=== PATIENT | female | born 1970 | race Caucasian/White ===

== ENCOUNTER 2024-04-02 12:42 | Outpatient (AMB) | payer OTHER, SELFPAY ==
--- NOTE | 2024-04-02 12:46 | HO.SPINEOV ---
Intake Visit Reasons: low back pain Intake Note: Ms. Ortiz is here today c/o Low back pain. 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 This is a patient with a known history of scoliosis, previous anterior lumbar interbody fusion at L5-S1 in 2007, who had seen Deniz MORALES at [facility] for back issues. The patient has had on and off issues for the better part of her adult life but over the last year she has had a significant increase in her back pain. It runs along the left side of her paraspinal region and comes down across her lower lumbar area. She does not report any radicular symptoms. The symptoms are aggravated with standing, walking and when she is carrying anything. I can bother her she sitting for any length of time as well. She takes Motrin every day. She underwent physical therapy without any relief. No injections. She is here today with an MRI and x-ray showing scoliotic curvature of the lumbar spine. PMH: History of an anterior lumbar interbody fusion in 2007, history of gastric sleeve surgery, cholecystectomy, , small lipoma removed from the left side of her upper lumbar region, right labral tear of her hip. Other than that she is healthy. Denies any issues with heart attack, strokes, bleeding disorders, lung problems, liver problems, kidney problems, bladder problems, cancer. Social hx: She does not smoke, drink use any recreational drugs Medications: Wegovy for weight loss purposes only Allergies: Penicillin and codeine Physical exam: She stands with a flexed and left leaning curvature of her spine. Strength and reflexes are intact in the lower extremities no clonus. Imaging review: There is a lumbar MRI done at [facility] as well as standing x-rays done at [place] and these show a significant levoscoliotic curvature of the lumbar spine. Previous L5-S1 implants appear to be fused. The standing x-ray show the apex of the scoliosis to be at the L2-3 region. There is a lateral listhesis of L3-4 as well. There is significant disc degeneration at L4-5. Impression: 53-year-old female with history of previous anterior lumbar interbody fusion, history of known scoliosis, presents today for evaluation of left-sided low back pain in the paraspinal region which radiates also down across her lower back. As described in the imaging section above, she has a significant levoscoliotic curvature of her spine with almost no lordotic curvature on the lateral views. The overall apex of the scoliosis appears to be at L2-3. There is lateral listhesis at L3-4 and significant disc degeneration at L4-5. Dr. Dash reviewed the films with me, he thinks that the best surgical approach for this would be a combination oblique lumbar interbody fusion and trans Kambin approach. Specifically he would choose OLIF at L3-4 and L4-5, (with the option of converting that to a trans Kambin if there is too much scar tissue encountered from her previous ALIF), with trans Kambin at L2-3. All pertinent risks and benefits were discussed, as well as recovery. At this time, the patient is not in a place where the pain is so bad that she believes that she would want to pursue such an extensive surgery, however she would like to rediscuss this in 6 months as the pain has been getting worse over the last year. We will see her back in 6 months and re-evaluate. Thank you for allowing us to care for your patient. The total time spent with this visit with this patient was 45 minutes reviewing history, physical exam, lumbar imaging review, and implementation of treatment plan or further diagnostic testing Rashaad Dash MD,PhD [facility] Coding Level of Care Code New Pt Level 4 (10496) Diagnoses Scoliosis (and kyphoscoliosis), idiopathic M41.20
== END 2024-04-02 14:15 | disposition home or self-care (01) ==
PROVIDERS: PCP Internal Medicine; Visit Provider Physician Assistant
DX: M41.20 Other idiopathic scoliosis, site unspecified (principal)
CPT/HCPCS: 99204

== ENCOUNTER → 2024-04-02 12:42 | Outpatient (BNVA) | payer OTHER, SELFPAY | PROVIDERS: PCP Internal Medicine; Visit Provider Physician Assistant ==

== ENCOUNTER 2024-06-18 12:47 | Outpatient (AMB) | payer OTHER, SELFPAY ==
--- NOTE | 2024-06-18 13:00 | A.SPINEOV_ITS ---
Intake Visit Reasons: left upper pain Intake Note: Ms. Ortiz is here today c/o left upper back pain. 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 She is also concerned that she has been having a lot of pain on the left side of her back and feeling like a bump protruding out over her ribs. I reviewed her x-rays done at [place] an MRI at [facility] and the procedure again with her at length. She has a severe levoscoliosis above her previous L5-S1 anterior lumbar interbody fusion done in 2007. Dr. Dash plan was to do an L4-5, L3-4 oblique lumbar interbody fusion, followed by an L2-3 trans Kambin. If any scar tissue was encountered with the oblique approach, he is leaving the option open to do trans Kambin for all levels if needed. We reviewed the procedure again at length, risks, benefits etc.. We also discussed recovery. I told her she would need 3 months or more off from work. She is tentatively planned for sometime in August. Total amount of time spent in this visit was 20 minutes in discussion of symptoms, MRI and x-rays imaging results and subsequent plan of care Rashaad Dash MD,PhD [facility] Coding Level of Care Code Est Pt Level 3 (01387) Diagnoses Scoliosis (and kyphoscoliosis), idiopathic M41.20
== END 2024-06-18 13:29 | disposition home or self-care (01) ==
PROVIDERS: PCP Internal Medicine; Visit Provider Physician Assistant
DX: M41.20 Other idiopathic scoliosis, site unspecified (principal)
CPT/HCPCS: 99213

== ENCOUNTER → 2024-06-18 12:47 | Outpatient (BNVA) | payer OTHER, SELFPAY | PROVIDERS: PCP Internal Medicine; Visit Provider Physician Assistant ==

== ENCOUNTER 2024-09-20 09:00 | Outpatient (RCR) | payer OTHER, SELFPAY ==
--- NOTE | 2024-09-03 13:53 | MHC.PT.EP ---
[facility] [place] [facility] [place] [facility] [place] Office [address] [phone] F: [phone] F: [phone] F: [phone] F: [phone] Physical Therapy Plan of Care Date of Evaluation: 09/03/24 Date of Surgery: Diagnosis: other idiopathic scoliosis lumbar DDD Assessment: 54 y/o female referred to PT with scoliosis and lumbar DDD. Reports pain and difficulty with rolling in bed, prolonged sitting, standing, walking, and carrying things. Of note, she was about to have surgery to correct scoliosis and listhesis however insurance did not cover it so it was cancelled. Examination shows severe scoliosis with L rib hump, decreased lumbar AROM, decreased LE strength, pain, impaired posture, and impaired gait pattern. Recommend PT 2x/week for 5 weeks to address impairments, implement HEP, and optimize functional mobility. Frequency and Duration: The patient will be seen 2x/week for 5 weeks Short Term Goals: 3 weeks I wtih HEP Pt will be able to roll in bed with pain < 4/[address] Service Goals: 5 weeks I with HEP and self management of sx Pt will improve B LE strength to 4/5 throughout Pt will be able to ambulate with appropraite foot clearance and pain < 4/10 Treatment Plan: Modalities to reduce pain, spasms and effusion. Manual therapy to restore motion and function. Therapeutic exercise to improve strength and flexibility. Neuromuscular re-education for posture and balance. Therapeutic activities to return to functional activities of daily living. Electronically signed by: Araseli Suarez PT Please sign and return to therapist. Thank you for your referral.
--- NOTE | 2024-11-12 07:08 | MHC.PT.DC ---
[facility] [place] [facility] [place] [facility] [place] Office [address] Rebekah Dickey [address] [facility] [phone] F: [phone] F: [phone] F: [phone] F: [phone] Physical Therapy Discharge Report Diagnosis: other idiopathic scoliosis lumbar DDD Date of Surgery: Date of Evaluation: 09/03/24 Date of Discharge: 11/12/24 Treatments to Date: 4 Cancellations to Date: 4 No Shows to Date: 0 Discharge Status: Patient Elected to Stop Physician Discontinued Tx Discharge Summary: Pt cancelled remaining appointments reporting MD told her to d/c PT at this time. Electronically signed by: Araseli Suarez PT Please sign and return to therapist. Thank you for your referral.
== END 2024-11-12 07:08 | disposition home or self-care (01) ==
LOC: HO.PTCHIC 09:00
PROVIDERS: PCP Internal Medicine; Visit Provider Physician Assistant
DX: M41.20 Other idiopathic scoliosis, site unspecified (principal); M51.369 Other intervertebral disc degeneration, lumbar region without mention of lumbar back pain or lower extremity pain
CPT/HCPCS: 97110; 97140; 97162

== ENCOUNTER 2024-12-24 14:48 | Outpatient (AMB) | payer OTHER, SELFPAY ==
--- NOTE | 2024-12-24 15:26 | A.SPINEOV_ITS ---
Intake Visit Reasons: Worsening symptoms Intake Note: Ms. 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 Please refer to the extensive previous notes for the specifics of her issue, she has scoliotic curvature of her spine above her previous anterior lumbar interbody fusion L5-S1 and is due to undergo an L3-4, L4-5 oblique lumbar interbody fusion as well as L2-3 trans Kambin. The patient's surgery was denied for lack of physical therapy. The patient underwent therapy, and as predicted after a few weeks into the sessions, it was only making her pain worse. She is telling me that her leg is also starting to drag more now and she is feeling weakness in her leg having trouble holding her up. On my exam there is evidence of weakness and not only the iliopsoas 4/5 but the quadricep which I would rate as 4-/5. Reflexes absent in the patella. She is having a hard time standing up straight here in the office today. I am concerned that we are continuing to push this patient's surgery off and now she is developing weakness that we may be causing more lasting harm by waiting. We will attempt to resubmit for surgery and hopefully the insurance company will cooperate. Total amount of time spent in this visit was 20 minutes in discussion of symp toms, lumbar MRI and x-ray imaging results and subsequent plan of care Rashaad Dash MD,PhD [facility] Coding Level of Care Code Est Pt Level 3 (88137) Diagnoses Scoliosis (and kyphoscoliosis), idiopathic M41.20
--- OUTSIDE RECORDS SUMMARY | 2024-12-24 16:57 | XMS_ITS | Clinical Summary ---
Author Organization [facility] Address [address] [place] [address] Care Team Providers Care Mineral Surveying Technician Name Role Phone Maria Luisa Perez MD Primary Care Provider [phone] Allergies Active Allergy Reactions Criticality Noted Date Comments Penicillin V 12/13/2005 Medications Medication Sig Dispensed Refills Start Date End Date Status meloxicam (MOBIC) 15 MG tablet Take 1 tablet daily for 7 days following surgery, beginning the night of surgery 7 tablet 0 06/11/2021 Active gabapentin (Neurontin) 300 MG capsule Take 300mg for 3 days at bedtime. Please start 1 night prior to surgery 3 capsule 0 06/11/2021 Active promethazine (PHENERGAN) 12.5 MG tablet Take 1 tablet (12.5 mg total) by mouth every 8 (eight) hours as needed for nausea. Use after surgery as needed 4 tablet 0 06/11/2021 Active oxyCODONE (ROXICODONE) 5 MG immediate release tablet Take 1 tablet (5 mg total) by mouth every 6 (six) hours as needed for pain. Do not take until after surgery 25 tablet 0 06/11/2021 Active Active Problems No known active problems Family History Medical History Relation Name Comments Hyperlipidemia Father Cancer Mother Diabetes Mother Hyperlipidemia Mother Hyperlipidemia Sister Relation Name Status Comments Father Mother Sister Social History Tobacco Use Types Packs/Day Years Used Date Smoking Tobacco: Never Smokeless Tobacco: Never Sex and Gender Information Value Date Recorded Sex Assigned at Female 09/05/2020 9:14 AM EST Gender Identity Female 09/05/2020 9:14 AM EST Sexual Orientation Not on file Job Start Date Occupation Industry Not on file Not on file Not on file Last Filed Vital Signs Vital Sign Reading Time Taken Comments Blood Pressure - - Pulse - - Temperature - - Respiratory Rate - - Oxygen Saturation - - Inhaled Oxygen Concentration - - Weight 88.9 kg (196 lb) 12/10/2021 3:17 PM EST Height 163.8 cm (5' 4.5 ) 12/10/2021 3:17 PM EST Body Mass Index 33.12 12/10/2021 3:17 PM EST Plan of Treatment Health Maintenance Due Date Last Done Comments Hepatitis B Vaccines (1 of 3 - 3-dose series) 1971 Hepatitis C Screening 1971 COVID-19 Vaccine (#1) 1971 Depression Screening 1983 BMI Counseling 1989 Preventative Health Evaluation 1989 Cervical Cancer Screening (P ap Smear) 1992 Colon Cancer Screening (Colonoscopy) 2016 DTap / Tdap / Td (2 - Td or Tdap) 09/04/2017 007 Breast Cancer Screening (Mammogram) 2021 Shingrix-Zoster Vaccine (1 of 2) 2021 Influenza Vaccine (#1) 2024 08/14/2021 Pneumococcal Vaccine Aged Out No long er eligible based on patient's age to complete this topic RSV Ped < 20 months Aged Out No longe r eligible based on patient's age to complete this topic Care Teams Mineral Surveying Technician Relationship Specialty Start Date End Date Maria Luisa Perez MD [address] [facility] [address] [place] [address] PCP - General Internal Medicine 09/05/20
--- OUTSIDE RECORDS SUMMARY | 2024-12-24 16:57 | XMS_ITS ---
Author Organization [employer] [facility] Address [address] [place] [address] Care Team Providers Care Heliotherapist Name Role Phone ZARIA GALLOWAY Unavailable [phone] ALLERGIES Allergen (clinical drug ingredient) Drug/Non Drug Allergy documented on EMR Reaction Allergy Type Onset Date Status codeine Codeine Unknown Drug Allergy Active Penicillin Unknown Drug Allergy Active REASON FOR VISIT Pt seen in office for wt mgt f/u visit with IVETTE. MEDICATIONS Medication SIG (Take, Route, Fr equency, Duration) Notes Start Date End Date Status Wegovy 2.4 MG/0.75ML USE TO INJECT 2.4MG INTO THE SKIN ONCE WEEKLY 28 DAYS for 28 Active SOCIAL HISTORY Tobacco Use: Social History Observation Description Date Details (start date - stop date) Never Smoker NA - NA Sex Assigned At : Social History Observation Description Sex Assigned At Unknown Tobacco Use/Smoking Question Answer Notes Are you a nonsmoker PROBLEMS Problem Type ICD Code Onset Dates Problem Status W/U Status Risk SNOMED Code Notes Problem Overweight (BMI 25.0-29.9) (E66.3) Active confirmed Overweight (624633962) VITAL SIGNS Blood pressure systolic 122 mm Hg 09/27/20 24 Blood pressure diastolic 70 mm Hg 024 Heart Rate 73 /min 09/27/2024 Height 63 in 09/27/2024 Weight 159 lbs 09/27/2024 BMI 28.16 kg/m2 09/27/2024 Oximetry 99 % 09/27/2024 Encounters Encounter Location Date Provider Diagnosis [facility] [address] [facility] [address] [facility] [address] [place] [address] 09/27/2024 ZARIA GALLOWAY BMI 28.0-28.9,adult Z68.28 ; Overweight (BMI 25.0-29.9) E66.3 and Dietary counseling and surveillance Z71.3 ASSESSMENTS Encounter Date Diagnosis Assessment Notes Treatment Notes Treatment Clinical Notes Section Notes 09/27/2024 BMI 28.0-28.9,adult (ICD-10 - Z68.28) #Weight Management 09/27/2024 _update labs please Maintenance dosing moving forward Spinal surgery on hold temporarily pending insurance authorization Discussed preoperative guidelines Discussed protein and muscle and's strength and resistance training We stressed the importance of adequate protein intake at the level of 75 g a day Total time spent today was 30 minutes of which greater than 50% was spent on coordinating and counseling Patient has been found to be overweight with a BMI of (28). We are a board certified obesity and weight management practice Patient has trialed behavioral modification, dietary restrictions and exercise for a minimum of 6 months Patient counseled regarding effects of GLP/GIP-1 agonists, and other FDA approved wgt loss meds with regards to a multifactorial approach of weight loss as mentioned above and not solely appetite suppression. Of note, some information is being carried forward from prior records for informational purposes only and is being cited so that efficiency, safety and quality of the patient's care is not compromised This note was prepared using voice recognition software and direct typing Please excuse inadvertent coin machine operator or typing errors, or uncorrected word substitutions Although every attempt has been made by the provider to proofread this document, occasional misspellings and typographical errors may still be present Due to the previous pandemic, and the use of personal protective equipment (PPE) This may decrease voice recognition accuracy Inadvertent coin machine operator errors may occur 09/27/2024 Overweight (BMI 25.0-29.9) (ICD-10 - E66.3) #Weight Management 09/27/2024 _update labs please Maintenance dosing moving forward Spinal surgery on hold temporarily pending insurance authorization Discussed preoperative guidelines Discussed protein and muscle and's strength and resistance training We stressed the importance of adequate protein intake at the level of 75 g a day Total time spent today was 30 minutes of which greater than 50% was spent on coordinating and counseling Patient has been found to be overweight with a BMI of (28). We are a board certified obesity and weight management practice Patient has trialed behavioral modification, dietary restrictions and exercise for a minimum of 6 months Patient counseled regarding effects of GLP/GIP-1 agonists, and other FDA approved wgt loss meds with regards to a multifactorial approach of weight loss as mentioned above and not solely appetite suppression. Of note, some information is being carried forward from prior records for informational purposes only and is being cited so that efficiency, safety and quality of the patient's care is not compromised This note was prepared using voice recognition software and direct typing Please excuse inadvertent coin machine operator or typing errors, or uncorrected word substitutions Although every attempt has been made by the provider to proofread this document, occasional misspellings and typographical errors may still be present Due to the previous pandemic, and the use of personal protective equipment (PPE) This may decrease voice recognition accuracy Inadvertent coin machine operator errors may occur 09/27/2024 Dietary counseling and surveillance (ICD-10 - Z71.3) #Weight Management 09/27/2024 _update labs please Maintenance dosing moving forward Spinal surgery on hold temporarily pending insurance authorization Discussed preoperative guidelines Discussed protein and muscle and's strength and resistance training We stressed the importance of adequate protein intake at the level of 75 g a day Total time spent today was 30 minutes of which greater than 50% was spent on coordinating and counseling Patient has been found to be overweight with a BMI of (28). We are a board certified obesity and weight management practice Patient has trialed behavioral modification, dietary restrictions and exercise for a minimum of 6 months Patient counseled regarding effects of GLP/GIP-1 agonists, and other FDA approved wgt loss meds with regards to a multifactorial approach of weight loss as mentioned above and not solely appetite suppression. Of note, some information is being carried forward from prior records for informational purposes only and is being cited so that efficiency, safety and quality of the patient's care is not compromised This note was prepared using voice recognition software and direct typing Please excuse inadvertent coin machine operator or typing errors, or uncorrected word substitutions Although every attempt has been made by the provider to proofread this document, occasional misspellings and typographical errors may still be present Due to the previous pandemic, and the use of personal protective equipment (PPE) This may decrease voice recognition accuracy Inadvertent coin machine operator errors may occur PLAN OF TREATMENT Pending Test Test Name Order Date LIPID PANEL, STANDARD 09/27/2024 COMPREHENSIVE METABOLIC PANEL 09/27/2024 CBC (INCLUDES DIFF/PLT) 09/27/2024 URINALYSIS, COMPLETE 09/27/2024 HEMOGLOBIN A1c 09/27/2024 TSH 09/27/2024 VITAMIN D,25-OH,TOTAL,IA 09/27/2024 Next Appt Details Provider Name:ZARIA VAZQUEZMirta, 12/27/2024 01:30:00 PM, [address], [address], [place], [address], Provider Name:ZARIA CHANDRALOUANN, 12/29/2024 01:00:00 PM, [address], [address], [place], [address], Progress Notes * BARB STOVALLOB:1970 ([age] yo F)Acc No.[id number]:09/27/2024 Patient:??HEATHER STOVALL Provider:??ZARIA GALLOWAY NP :1970?Age:54 Y?Sex:Fe male Date:09/27/2024 Address:[facility] [address] [place] [place], [id number] Subjective: * Chief Complaints: * ?1. Pt seen in office f or wt mgt f/u visit with IVETTE.. * HPI: ?Constitutional:? Patient is here today for a weight management followup visit ?Patient seen and examined. ? Full past medical history, social history, family history, ?allergies and current medications were reviewed and updated. ?Body composition analysis reviewed today ?#Weight Management ?09/27/2024 ?Needs updated labs ?Patient is currently on 2.4mg Wegovy bi weekly maintenance ?scheduled to have Spinal surgery L3-L5, candice placement, postural correction ?with [facility] on 08/31/2024, this is on hold for insurance authorization* ?Sx- hx- bariatric sx (sleeve) ?Denies any side effects and thriving. Pt states that for the most part her appetite is suppressed. ?Patient continues to try to add protein in her diet, but she says it could be better. ? Currently consumes some bahamian yogurts for protein ?Exercise/Strength and resistance training needs to improve since her muscle mass is low normal. ?Pt is walking regularly, however, does not do resistance training at the moment. ?Discussed the importance of this since as she has lost 2 lbs of muscle mass since her last visit in March. ?Takes Biotin and Multivitamin ?Pt is currently at goal weight and is happy with where she is at. ?We will begin spreading injections to biweekly schedule. ?Is taking women's daily multivitamin and biotin 5000 mg daily supplement. ?SECA Body composition reviewed ?09/27/2024, Weight 159lbs , BMI 28 ?07/26/2024, Weight 156lbs , BMI 28 ?06/01/2024, Weight 156.09 lbs, BMI 27.65 (-2lbs) ?03/29/2024, Weight 158lbs , BMI 28 (-2lbs) ?02/05/2024, Weight 160lbs , BMI 28.4 (-2lbs) ?12/23/2023, Weight 162lbs , BMI 28 (-10lbs) ?09/05/2023: Weight 172lbs, BMI 30 (-5lbs) ?07/24/2023: Weight 178 , BMI 31.53 (- 12lbs) ?06/11/2023: Weight 190 lbs, BMI 33 (-12 lbs) ?04/28/2023: Weight 202lbs, BMI (-10lbs) ?03/18/2023: Weight 212lbs, BMI 37.6 ?Allergies- codeine, Penicillin V ?PCP- Maria Luisa Perez MD. ?Past med hx- right-sided low back pain with sciatica (Labral tear), ?vit d deficiency, adnexal cyst, lipoma of skin. ?Sx- hx- bariatric sx (sleeve), , tubal ligation, wisdom teeth extraction, ?back surgery- s/p herniated disc, cholecystectomy, repair right side Labral tear 2020. ?Patient referred to us from PCP Maria Luisa Perez MD. 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 ?Highest weight: 270 lbs ?Lowest weight: 193 lbs ?Goal weight: 150-170 lbs ?IVON screening, refused. ?Metabolic workup: ?Thyroid- denies, ?Diabetes- denies ?Has not had an echocardiogram recently. ?Diet: Admits eating more on Wegovy including sweets. Eats yogurt in the morning, some fruit, ?and a lot of chicken and white meats. ?Exercise: Currently 5-7k steps daily. No current exercise regimen although states she walks a lot at work. ?Discussed adding some form of resistance training to maintain muscle mass. ?Tobacco: denies ?ETOH use: denies. * ROS:?Review of systems negative unless otherwise stated in HPI. * Medical History:??Headache, Gallbladder disease. * Surgical History:??gastric s leeve , gallbladder removal , lumbar fusion . * Hospitalization/Major Diagno stic Procedure:??Denies Past Hospitalization. * Family History:??Father: dec eased.??Mother: .??2 sister(s) . .?? mother cancer father-emphysema. * Social History:?Tobacco Use:??Tobacco Use/Smoking??Are you a??nonsmoker.?? * Medications:??Taking Wegovy 2.4 MG/0.75ML Solution Auto-injector USE TO INJECT 2.4MG INTO THE SKIN ONCE WEEKLY 28 DAYS , Medication List reviewed and reconciled with the patient * Allergies:??Penicillin, Code ine. Objective: * Vitals:??HR:73/min, BP:122/7 0mm Hg, Wt:159lbs, BMI:28.16Index, Ht: 63 in, Oxygen sat %:99%. * Examination: ?General Examination: ?GENERAL APPEARANCE:??in no acute distress, well developed, well nourished.??HEAD:??normocephalic, atraumatic.??EYES:??pupils equal, round, reactive to light and accommodation.??EARS:??normal.??ORAL CAVITY:??mucosa moist.??THROAT:??clear.??NECK/THYROID:??neck supple, full range of motion, no cervical lymphadenopathy.??SKIN:??no suspicious lesions, warm and dry.??HEART:??no murmurs, regular rate and rhythm, S1, S2 normal.??LUNGS:??clear to auscultation bilaterally.??ABDOMEN:??normal, bowel sounds present, soft, nontender, nondistended.??EXTREMITIES:??no clubbing, cyanosis, or edema.??NEUROLOGIC:??nonfocal, motor strength normal upper and lower extremities, sensory exam intact.? Assessment: * Assessment: 1.??Overweight (BMI 25.0-29. 9) - E66.3 (Primary)??2.??BMI 28.0-28.9,adult - Z68.28??3.??Dietary counseling and surveillance - Z71.3?? #Weight Management 09/27/2024 _update labs please Maintenance dosing moving forward Spinal surgery on hold temporarily pending insurance authorization Discussed preoperative guidelines Discussed protein and muscle and's strength and resistance training We stressed the importance of adequate protein intake at the level of 75 g a day Total time spent today was 30 minutes of which greater than 50% was spent on coordinating and counseling Patient has been found to be overweight with a BMI of (28). We are a board certified obesity and weight management practice Patient has trialed behavioral modification, dietary restrictions and exercise for a minimum of 6 months Patient counseled regarding effects of GLP/GIP-1 agonists, and other FDA approved wgt loss meds with regards to a multifactorial approach of weight loss as mentioned above and not solely appetite suppression. Of note, some information is being carried forward from prior records for informational purposes only and is being cited so that efficiency, safety and quality of the patient's care is not compromised This note was prepared using voice recognition software and direct typing Please excuse inadvertent coin machine operator or typing errors, or uncorrected word substitutions Although every attempt has been made by the provider to proofread this document, occasional misspellings and typographical errors may still be present Due to the previous pandemic, and the use of personal protective equipment (PPE) This may decrease voice recognition accuracy Inadvertent coin machine operator errors may occur. Plan: * Treatment: * Labs:?? * ?Lab: HEMOGLOBIN A1 c ?Lab: VITAMIN D,25- OH,TOTAL,IA ?Lab: URINALYSIS, C OMPLETE ?Lab: COMPREHENSIVE METABOLIC PANEL ?Lab: CBC (INCLUDES DIFF/PLT) ?Lab: TSH ?Lab: LIPID PANEL, STANDARD * Procedure Codes:??64205 P/M ACID TANK CLEANER, INDIV 15 MIN * Images: Billing Information: * Visit Code:?? 91675 Office Visit, Est Pt., Level 4. * Procedure Codes:?? 10846 P/M ACID TANK CLEANER, INDIV 15 MIN. * Sign off status: Completed true * Provider:??ZARIA GALLOWAY NP Date:??1211/2023 History and Physical Notes * HPI (History of Present Illness) Category Sub-Category Detail Notes Category Not es Constitutional Patient is here today for a weight management followup visit Patient seen and examined. Full past medical history, social history, family history, allergies and current medications were reviewed and updated. Body composition analysis reviewed today #Weight Management 09/27/2024 Needs updated labs Patient is currently on 2.4mg Wegovy bi weekly maintenance scheduled to have Spinal surgery L3-L5, candice placement, postural correction with Hardy @ [email or web address] on 08/31/2024, this is on hold for insurance authorization* Sx- hx- bariatric sx (sleeve) Denies any side effects and thriving. Pt states that for the most part her appetite is suppressed. Patient continues to try to add protein in her diet, but she says it could be better. Currently consumes some bahamian yogurts for protein Exercise/Strength and resistance training needs to improve since her muscle mass is low normal. Pt is walking regularly, however, does not do resistance training at the moment. Discussed the importance of this since as she has lost 2 lbs of muscle mass since her last visit in March. Takes Biotin and Multivitamin Pt is currently at goal weight and is happy with where she is at. We will begin spreading injections to biweekly schedule. Is taking women's daily multivitamin and biotin 5000 mg daily supplement. SECA Body composition reviewed 09/27/2024, Weight 159lbs , BMI 28 07/26/2024, Weight 156lbs , BMI 28 06/01/2024, Weight 156.09 lbs, BMI 27.65 (-2lbs) 03/29/2024, Weight 158lbs , BMI 28 (-2lbs) 02/05/2024, Weight 160lbs , BMI 28.4 (-2lbs) 12/23/2023, Weight 162lbs , BMI 28 (-10lbs) 09/05/2023: Weight 172lbs, BMI 30 (-5lbs) 07/24/2023: Weight 178 , BMI 31.53 (- 12lbs) 06/11/2023: Weight 190 lbs, BMI 33 (-12 lbs) 04/28/2023: Weight 202lbs, BMI (-10lbs) 03/18/2023: Weight 212lbs, BMI 37.6 Allergies- codeine, Penicillin V PCP- Maria Luisa Perez MD. Past med hx- right-sided low back pain with sciatica (Labral tear), vit d deficiency, adnexal cyst, lipoma of skin. Sx- hx- bariatric sx (sleeve), , tubal ligation, wisdom teeth extraction, back surgery- s/p herniated disc, cholecystectomy, repair right side Labral tear 2020. Patient referred to us from PCP Maria Luisa Perez MD. 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 Highest weight: 270 lbs Lowest weight: 193 lbs Goal weight: 150-170 lbs IVON screening, refused. Metabolic workup: Thyroid- denies, Diabetes- denies Has not had an echocardiogram recently. Diet: Admits eating more on Wegovy including sweets. Eats yogurt in the morning, some fruit, and a lot of chicken and white meats. Exercise: Currently 5-7k steps daily. No current exercise regimen although states she walks a lot at work. Discussed adding some form of resistance training to maintain muscle mass. Tobacco: denies ETOH use: denies Examination Category Sub-Category Detail Notes Category Not es General Examination GENERAL APPEARANCE: in no ac chacho distress, well developed, well nourished HEAD: normocephalic, atrau matic EYES: pupils equal, round, reactive to light and accommodation EARS: normal THROAT: clear NECK/THYROID: neck supple, full ra nge of motion, no cervical lymphadenopathy HEART: no murmurs, regular rate and rhythm, S1, S2 normal LUNGS: clear to auscultatio n bilaterally ABDOMEN: normal, bowel sounds present, soft, nontender, nondistended NEUROLOGIC: nonfocal, motor stre ngth normal upper and lower extremities, sensory exam intact SKIN: no suspicious lesion s, warm and dry EXTREMITIES: no clubbing, cyanosi s, or edema ORAL CAVITY: mucosa moist
--- OUTSIDE RECORDS SUMMARY | 2024-12-24 16:57 | XMS_ITS | Clinical Summary ---
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 Active MULTIVITAMIN ORAL Take by mouth. Active semaglutide (Wegovy) 2.4 mg/0.75 mL injection pen 08/18/2023 Activ e Active Problems Problem Noted Date Diagnosed Date Levoscoliosis of lumbar spine 03/03/2024 Overview (08/07/2024): Last Assessment & Plan: Fidencio Stovall continues to suffer with transverse low back pain. She has gone to physical therapy that has helped but not eliminated her pain. Her x-rays show a significant levoscoliosis with the apex at L1-2. We talked about surgical intervention that may involve a 1 level fusion extension versus a deformity correction. I explained that we did not offer deformity correction and our service but we could refer her to another neurosurgeon in the area that does that kind of surgery (Dr. Dash). She would not consider surgical intervention at this time. She will continue her home exercises and take NSAIDs. We talked about acupuncture and an inversion table as other reasonable conservative modalities. She will reach out if she has any questions or wants to pursue things further. Chronic bilateral low back pain without sciatica 01/16/2024 Overview (08/07/2024): Last Assessment & Plan: Ms. Stovall has a of anterior lumbar interbody fusion performed by Dr. Cabrera in 2007. She did well following that procedure but over the past several months has had increasing transverse low back pain without radiation to the legs. She does admit to occasional right anterior thigh burning but overall says that the pain is mostly in her back. She denies any fevers, shakes, chills, or problems of bowel or bladder control. In addition she describes a lump on the low left side of her posterior rib cage and ultrasound did see the lump, it is palpable, but it was not identified on the CAT scan. I counseled her to talk to her primary care doctor and ask for referral to general surgery for consideration of biopsy. With regards to her low back, we will obtain some x-rays with flexion and extension views to rule out any instability and look at the hardware. As long as those look okay, she will begin physical therapy. After the therapy, she can follow-up here and if her pain persists we can obtain a new MRI. Acute right-sided low back pain with sciatica Hypertension 04/20/2018 Intertrigo 03/03/2018 Vitamin D deficiency 08/15/2017 Adnexal cyst 08/16/2016 Lipoma of skin and subcutaneous tissue 6 Immunizations Name Administration Dates Next Due Influenza Quadravalent, MDCK , 0.5ml, preservative free (Flucelvax) 6mo and older 08/14/2021,07/20/2020 Influenza Quadravalent, MDCK , 0.5ml, with preservative (Flucelvax) 6mo and older 07/26/2020 Tdap Tetanus diptheria acell ular pertussis (Boostrix; Adacel) 7yo and older 09/04/2007 Surgical History Surgery Date Site/Laterality Comments SECTION PROCEDURE: HISTORICAL TUBAL LIGATION PROCEDURE: HISTORICAL TUBAL LIGATION WISDOM TOOTH EXTRACTION PROCEDURE: HISTORICAL WISDOM TEETH EXTRACTION OTHER SURGICAL HISTORY 09/25/2016 PROCEDURE: HISTORY OTHER; COMMENT: Lap Sleeve Gastrectomy Medical History Medical History Date Comments History of bariatric surgery 09/04/2018 DX: History of bariatric surgery; COMMENT: BMI 41.8 Intertrigo 03/03/2018 DX:Intertrigo Adnexal cyst 08/16/2016 DX:Adnexal cyst Hypertension 04/20/2018 DX:Hypertension Lipoma of skin and subcutane ous tissue 02/28/2016 DX:Lipoma of skin and subcut aneous tissue Vitamin D deficiency 08/15/2017 DX:Vitamin D deficiency History of morbid obesity 10/01/2006 DX:His tory of morbid obesity Family History Medical History Relation Name Comments Heart attack Father at age 71 Diabetes Mother Hypertension Mother Diabetes Paternal Grandmother Relation Name Status Comments Father Mother Paternal Grandmother Social History Tobacco Use Types Packs/Day Years Used Date Smoking Tobacco: Never Smokeless Tobacco: Never Alcohol Use Standard Drinks/Week Comments No 0 (1 standard drink = 0.6 oz pur e alcohol) Comments Unknown Sex and Gender Information Value Date Recorded Sex Assigned at Not on file Legal Sex Female 8:37 PM EST Gender Identity Not on file Sexual Orientation Not on file Obstetrics History Last Filed Vital Signs Vital Sign Reading Time Taken Comments Blood Pressure 117/78 03/24/2024 1:56 PM EDT Sit ting L Arm Pulse 76 03/24/2024 1:56 PM EDT Temperature - - Respiratory Rate - - Oxygen Saturation - - Inhaled Oxygen Concentration - - Weight 73 kg (161 lb) 03/24/2024 1:56 PM EDT Height 162.6 cm (5' 4 ) 03/24/2024 1:56 PM EDT Body Mass Index 27.64 03/24/2024 1:56 PM EDT Plan of Treatment Health Maintenance Due Date Last Done Comments Hepatitis B Vaccines (1 of 3 - 19+ 3-dose series) 1990 DTaP,Tdap,and Td Vaccines (2 - Td or Tdap) 09/04/2017 09/04/2007 Depression Screening 11/26/2019 HIV Screening 11/26/2019 Hepatitis C Screening 11/26/2019 Social Influencers of Health Screening 11/26/2019 Pneumococcal Vaccine: 50+ Years (1 of 1 - PCV) 2021 Zoster Vaccines (1 of 2) 2021 COVID-19 Vaccine (4 - 2023- season) 2024 11/28/2021, 11/06/2020, 10/17/2020 Influenza Vaccine (#1) 2024 3, 08/14/2021, 07/26/2020, Additional history exists Hypertension/CHF/CAD Annual BMP Blood Test 11/10/2025 11/10/2024, 07/23/2023 Breast Cancer Screening 05/12/2026 05/12/20 24, 04/10/2023, 04/09/2022, Additional history exists Cervical Cancer Screening: Pap Smear 09/09/2027 09/09/2024, 03/27/2022 Cholesterol Screening (Lipid Panel) 11/10/2029 11/10/2024, 07/23/2023 Colorectal Cancer Screening: Colonoscopy 07/23/2032 07/23/2022 HIB Vaccines Aged Out No longer eligi ble based on patient's age to complete this topic HPV Vaccines Aged Out No longer eligi ble based on patient's age to complete this topic Hepatitis A Vaccines Aged Out No long er eligible based on patient's age to complete this topic IPV Vaccines Aged Out No longer eligi ble based on patient's age to complete this topic MMR Vaccines Aged Out No longer eligi ble based on patient's age to complete this topic Meningococcal ACWY Vaccine Aged Out N o longer eligible based on patient's age to complete this topic Meningococcal B Vacine Aged Out No lo nger eligible based on patient's age to complete this topic Pneumococcal Vaccine: Pediatrics (0 to 5 Years) and At-Risk Patients (6 to 64 Years) Aged Out No longer eligible based on patient's age to complete this topic RSV Immunization Patients Under 20 months Aged Out No longer eligible based on patient's age to complete this topic Varicella Vaccines Aged Out No longer eligible based on patient's age to complete this topic Procedures Procedure Name Priority Date/Time Associated Diagnosis Comments URINALYSIS WITH REFLEX MICROSCOPIC Routine 11/10/2024 8:10 AM EST Screening for diabetes mellitus Vitamin D deficiency disease Routine general medical examination at a health care facility Screening for thyroid disorder Screening for lipoid disorders URINALYSIS WITH REFLEX MICROSCOPIC Routine 11/10/2024 8:10 AM EST Screening for diabetes mellitus Vitamin D deficiency disease Routine general medical examination at a health care facility Screening for thyroid disorder Screening for lipoid disorders CBC WITH AUTO DIFFERENTIAL Routine 11/10/2024 7:58 AM EST Screening for diabetes mellitus Vitamin D deficiency disease Routine general medical examination at a health care facility Screening for thyroid disorder Screening for lipoid disorders LIPID PANEL WITH REFLEX TO DIRECT LDL Routine 11/10/2024 7:58 AM EST Screening for diabetes mellitus Vitamin D deficiency disease Routine general medical examination at a [facility] care facility Screening for thyroid disorder Screening for lipoid disorders THYROID STIMULATING HORMONE Routine 11/10/2024 7:58 AM EST Screening for diabetes mellitus Vitamin D deficiency disease Routine general medical examination at a health care facility Screening for thyroid disorder Screening for lipoid disorders CBC AND DIFFERENTIAL Routine 11/10/2024 7:58 AM EST Screening for diabetes mellitus Vitamin D deficiency disease Routine general medical examination at a [facility] care facility Screening for thyroid disorder Screening for lipoid disorders COMPREHENSIVE METABOLIC PANEL Routine 11/10/2024 7:58 AM EST Screening for diabetes mellitus Vitamin D deficiency disease Routine general medical examination at a health care facility Screening for thyroid disorder Screening for lipoid disorders VITAMIN D 25 HYDROXY Routine 11/10/2024 7:58 AM EST Screening for diabetes mellitus Vitamin D deficiency disease Routine general medical examination at a health care facility Screening for thyroid disorder Screening for lipoid disorders HEMOGLOBIN A1C Routine 11/10/2024 7:58 AM EST Screening for diabetes mellitus Vitamin D deficiency disease Routine general medical examination at a health care facility Screening for thyroid disorder Screening for lipoid disorders PAP SMEAR Routine 09/09/2024 12:00 AM EST Encounter for gynecological examination (general) (routine) without abnormal findings CAR SCREENING DIGITAL Routine 05/12/2024 3:17 PM EDT Encounter for screening mammogram for malignant neoplasm of breast HM COLONOSCOPY Routine 07/23/2022 from Last 3 Months or Most Recently Relevant to Health Maintenance Results * (ABNORMAL) Urinalysis with reflex microscopic (11/10/2024 8:10 AM EST) Specific [place] Urine 1.022 1.003 - 1.030 LAB URINALYSIS - AUTOMATED METHOD 11/10/2024 9:29 AM [facility] pH, Urine 5.0 5.0 - 8.0 pH LAB URINALYSIS - AUTOMATED METHOD 11/10/2024 9:29 AM [facility] Leukocytes, Urine Small(A) Negative LAB URINALYSIS - AUTOMATED METHOD 11/10/2024 9:29 AM [facility] Nitrite, Urine Negative Negative LAB URINALYSIS - AUTOMATED METHOD 11/10/2024 9:29 AM [facility] Protein, Urine Negative <=Trace mg/dL LAB URINALYSIS - AUTOMATED METHOD 11/10/2024 9:29 AM [facility] Glucose, Urine Negative Negative mg/dL LAB URINALYSIS - AUTOMATED METHOD 11/10/2024 9:29 AM [facility] Ketones, Urine Negative Negative mg/dL LAB URINALYSIS - AUTOMATED METHOD 11/10/2024 9:29 AM [facility] Urobilinogen, Urine 0.2 0.2 - 1.0 mg/dL LAB URINALYSIS - AUTOMATED METHOD 11/10/2024 9:29 AM [facility] Bilirubin, Urine Negative Negative LAB URINALYSIS - AUTOMATED METHOD 11/10/2024 9:29 AM [facility] Blood, Urine Negative Negative LAB URINALYSIS - AUTOMATED METHOD 11/10/2024 9:29 AM [facility] RBC, Urine 2.3 0 - 4 /HPF LAB URINALYSIS - AUTOMATED METHOD 11/10/2024 9:29 AM [facility] WBC, Urine 7.4(H) 0 - 4 /HPF LAB URINALYSIS - AUTOMATED METHOD 11/10/2024 9:29 AM [facility] Squamous Epithelial, Urine >100(H) 0 - 60 /LPF LAB URINALYSIS - AUTOMATED METHOD 11/10/2024 9:29 AM [facility] Bacteria, Urine Negative Negative /HPF LAB URINALYSIS - AUTOMATED METHOD 11/10/2024 9:29 AM [facility] Hyaline Casts, Urine 1.7 0 - 3 /LPF LAB URINALYSIS - AUTOMATED METHOD 11/10/2024 9:29 AM [facility] Urine Urine specimen obtained by clean catch procedure / Unknown Non-blood Collection / Unknown 11/10/2024 8:10 AM EST 11/10/2024 9:00 AM EST us Elidia Cadena [employer] LAB URINE ORDERABLES Final Re sult [facility] [address] [place] [address], [place] [phone] * (ABNORMAL) Lipid panel with reflex to direct LDL (11/10/2024 7:58 AM EST) Cholesterol 254(H) 0 - 200 mg/dL LAB CHEMISTRY METHOD 11/10/2024 10:05 AM [facility] Triglycerides 92 0 - 150 mg/dL LAB CHEMISTRY METHOD 11/10/2024 10:05 AM [facility] HDL 59 >=40 mg/dL LAB CHEMISTRY METHOD 11/10/2024 10:05 AM [facility] LDL Calculated 177(H) 0 - 100 mg/dL LAB CHEMISTRY METHOD 11/10/2024 10:05 AM [facility] VLDL Cholesterol Elliot 18.4 mg/dL LAB CHEMISTRY METHOD 11/10/2024 10:05 AM [facility] Non HDL Chol. (LDL+VLDL) 195(H) <145 mg/dL LAB CHEMISTRY METHOD 11/10/2024 10:05 AM [facility] Chol/HDL Ratio 4.3 0.0 - 4.4 LAB CHEMISTRY METHOD 11/10/2024 10:05 AM [facility] Blood Venous blood specimen / Unknown Venipuncture / Unknown 11/10/2024 7:58 AM EST 11/10/2024 8:54 AM EST us Elidia Cadena NP LAB BLOOD ORDERABLES Final Re sult [facility] [address] [place] [address], * (ABNORMAL) CBC auto differential (11/10/2024 7:58 AM EST) WBC 4.6(L) 4.8 - 10.8 K/mcL LAB HEMETOLOGY METHOD 11/10/2024 9:13 AM [facility] RBC 3.80 3.80 - 4.80 M/mcL LAB HEMETOLOGY METHOD 11/10/2024 9:13 AM [facility] Hemoglobin 11.3(L) 11.5 - 16.0 g/dL LAB HEMETOLOGY METHOD 11/10/2024 9:13 AM [facility] Hematocrit 34.3(L) 35.0 - 47.0 % LAB HEMETOLOGY METHOD 11/10/2024 9:13 AM [facility] MCV 90.0 79.0 - 98.0 FL LAB HEMETOLOGY METHOD 11/10/2024 9:13 AM [facility] MCH 29.7 27.0 - 32.0 pcg LAB HEMETOLOGY METHOD 11/10/2024 9:13 AM [facility] MCHC 32.9 32.0 - 37.0 g/dL LAB HEMETOLOGY METHOD 11/10/2024 9:13 AM [facility] RDW 12.0 11.0 - 15.0 % LAB HEMETOLOGY METHOD 11/10/2024 9:13 AM [facility] Platelets 364 130 - 400 K/mcL LAB HEMETOLOGY METHOD 11/10/2024 9:13 AM [facility] MPV 10.2 7.0 - 11.0 FL LAB HEMETOLOGY METHOD 11/10/2024 9:13 AM [facility] NRBC 0.0 <1.0 % LAB HEMETOLOGY METHOD 11/10/2024 9:13 AM [facility] NRBC Absolute 0.00 <0.10 K/mcL LAB HEMETOLOGY METHOD 11/10/2024 9:13 AM [facility] Neutrophils Relative 40.9 % LAB HEMETOLOGY METHOD 11/10/2024 9:13 AM [facility] Lymphocytes Relative 48.2 % LAB HEMETOLOGY METHOD 11/10/2024 9:13 AM [facility] Monocytes Relative 7.2 % LAB HEMETOLOGY METHOD 11/10/2024 9:13 AM [facility] Eosinophils Relative 2.4 % LAB HEMETOLOGY METHOD 11/10/2024 9:13 AM [facility] Basophils Relative 1.1 % LAB HEMETOLOGY METHOD 11/10/2024 9:13 AM [facility] Immature Granulocytes Relative 0.2 % LAB HEMETOLOGY METHOD 11/10/2024 9:13 AM [facility] Neutrophils Absolute 1.89 1.50 - 7.00 K/mcL LAB HEMETOLOGY METHOD 11/10/2024 9:13 AM [facility] Lymphocytes Absolute 2.22 1.00 - 5.00 K/mcL LAB HEMETOLOGY METHOD 11/10/2024 9:13 AM [facility] Monocytes Absolute 0.33 0.20 - 1.00 K/mcL LAB HEMETOLOGY METHOD 11/10/2024 9:13 AM [facility] Eosinophils Absolute 0.11 0.00 - 0.50 K/mcL LAB HEMETOLOGY METHOD 11/10/2024 9:13 AM EST [facility] Basophils Absolute 0.05 0.00 - 0.20 K/[facility] LAB HEMETOLOGY METHOD 11/10/2024 9:13 AM EST [facility] Immature Granulocytes Absolute 0.01 0.00 - 0.03 K/[facility] LAB HEMETOLOGY METHOD 11/10/2024 9:13 AM EST [facility] Blood Venous blood specimen / Unknown Venipuncture / Unknown 11/10/2024 7:58 AM EST 11/10/2024 8:54 AM EST Elidia Cadena [employer] LAB BLOOD ORDERABLES Final Re sult Performing Organization Address [facility]/ZIP Co de Phone Number [facility] [address] [place] [address], * (ABNORMAL) Vitamin D 25 hydroxy (11/10/2024 7:58 AM EST) Vit D, 25-Hydroxy 26.5(L) 30.0 - 80.0 ng/mL LAB CHEMISTRY METHOD 11/10/2024 10:12 AM EST [facility] Blood Venous blood specimen / Unknown Venipuncture / Unknown 11/10/2024 7:58 AM EST 11/10/2024 8:54 AM EST Elidia Cadena [employer] LAB BLOOD ORDERABLES Final Re sult Performing Organization Address [facility]/ZIP Co de Phone Number [facility] [address] [place] [address], [place] [phone] * (ABNORMAL) Thyroid stimulating hormone (11/10/2024 7:58 AM EST) TSH 0.37(L) 0.40 - 4.00 mcIU/mL LAB CHEMISTRY METHOD 11/10/2024 10:13 AM EST [facility] Blood Venous blood specimen / Unknown Venipuncture / Unknown 11/10/2024 7:58 AM EST 11/10/2024 8:54 AM EST us Eliida Cadena [employer] LAB BLOOD ORDERABLES Final Re sult Performing Organization Address [facility]/ZIP Co de Phone Number [facility] [address] [place] [address], [place] [phone] * Hemoglobin A1c (11/10/2024 7:58 AM EST) Hemoglobin A1C 5.2 <6.5 % LAB CHEMISTRY METHOD 11/10/2024 12:29 PM EST [facility] Mean Bld Glu Estim. 103 mg/dL LAB CHEMISTRY METHOD 11/10/2024 12:29 PM EST [facility] Blood Venous blood specimen / Unknown Venipuncture / Unknown 11/10/2024 7:58 AM EST 11/10/2024 8:54 AM EST us Elidia Cadena [employer] LAB BLOOD ORDERABLES Final Re sult Performing Organization Address [facility]/ZIP Co de Phone Number [facility] [address] [place] [address], [place] [phone] * Comprehensive metabolic panel (11/10/2024 7:58 AM EST) Sodium 139 133 - 145 mmol/L LAB CHEMISTRY METHOD 11/10/2024 10:05 AM EST [facility] Potassium 4.0 3.5 - 5.5 mmol/L LAB CHEMISTRY METHOD 11/10/2024 10:05 AM EST [facility] Chloride 106 96 - 110 mmol/L LAB CHEMISTRY METHOD 11/10/2024 10:05 AM EST [facility] CO2 26 21 - 32 mmol/L LAB CHEMISTRY METHOD 11/10/2024 10:05 AM EST [facility] Anion Gap 7 3 - 11 LAB CHEMISTRY METHOD 11/10/2024 10:05 AM [facility] Glucose 76 70 - 100 mg/dL LAB CHEMISTRY METHOD 11/10/2024 10:05 AM [facility] BUN 13 5 - 25 mg/dL LAB CHEMISTRY METHOD 11/10/2024 10:05 AM [facility] Creatinine 0.54 0.50 - 1.10 mg/dL LAB CHEMISTRY METHOD 11/10/2024 10:05 AM [facility] eGFR 110 >=60 mL/min/1. 73m2 LAB CHEMISTRY METHOD 11/10/2024 10:05 AM [facility] Comment:Calculation based on the??Chronic Kidney Disease Epidemiology Collaboration (CKD-EPI) equation refit??without adjustment for race. BUN/Creatinine Ratio 24.1 LAB CHEMISTRY METHOD 11/10/2024 10:05 AM [facility] Calcium 9.3 8.5 - 10.5 mg/dL LAB CHEMISTRY METHOD 11/10/2024 10:05 AM [facility] AST (SGOT) 14 10 - 42 unit/L LAB CHEMISTRY METHOD 11/10/2024 10:05 AM [facility] ALT (SGPT) 23 10 - 60 unit/L LAB CHEMISTRY METHOD 11/10/2024 10:05 AM [facility] Alkaline Phosphatase 50 42 - 121 unit/L LAB CHEMISTRY METHOD 11/10/2024 10:05 AM [facility] Total Protein 7.5 6.0 - 8.0 g/dL LAB CHEMISTRY METHOD 11/10/2024 10:05 AM [facility] Albumin 3.9 3.2 - 5.0 g/dL LAB CHEMISTRY METHOD 11/10/2024 10:05 AM [facility] Total Bilirubin 0.7 0.0 - 1.4 mg/dL LAB CHEMISTRY METHOD 11/10/2024 10:05 AM [facility] Blood Venous blood specimen / Unknown Venipuncture / Unknown 11/10/2024 7:58 AM EST 11/10/2024 8:54 AM EST us Elidia Cadena NP LAB BLOOD ORDERABLES Final Re sult Performing Organization Address [facility]/ZIP Co de Phone Number [facility] [address] [place] [phone], * Pap smear (09/09/2024 12:00 AM EST) Interpretation Negative for intraepithelial lesion or malignancy 09/14/2024 9:29 AM [facility] General Categorization Negative 09/14/2024 9:29 AM [facility] Specimen Adequacy Satisfactory for evaluation, endocervical/barnett sformation zone component present 09/14/2024 9:29 AM [facility] Pap Methodology Liquid Based Pap Test 09/14/2024 9:29 AM [facility] Disclaimer The Pap test is a screening test which carries an inherent false negative rate. These test results should be correlated with the patient's clinical findings and history. This Pap test was processed using an automated screening system. Technical cytopathology services provided by [facility], at [address] [place] [id number] (CLIA # [id number]/Dano Dukes MD, [place].) 09/14/2024 9:29 AM [facility] Console Pap Interpretation Reported 09/14/2024 9:29 AM [facility] Brushing/Spatula Cervix uteri structure / Unknown 09/09/2024 09/09/2024 3:30 PM EST us Deniz Jones MD LAB CYTOLOGY ORDERABLES Final Result [facility] H[facility] LAB [address] [place] [address], * CAR SCREENING DIGITAL (05/12/2024 3:17 PM EDT) Anatomical Region Laterality Modality Mammography 05/12/2024 10:0 4 AM EDT Narrative 05/12/2024 3:17 PM EDT [facility] Diagnostic Imaging Department [address] [place] [address] Patient: ??GENIE STOVALL ?/Age/Sex: 1970 - 53 - F Unit#: ??[id number] ? Location/Status: ??SPDIMAM/REG CLI ? Mnemonic/Ordering Site: ??DIGSC/SPMAM Ordering Physician: ??MARIA LUISA PEREZ MD Car Screening Digital - 05/12/24 - 1027 Report Status:Signed EXAM: Car Screening Digital EXAM DATE AND TIME: 05/12/2024 10:27 AM HISTORY: ??Screening. Paternal aunt had breast carcinoma. COMPARISON: ??04/10/23, 04/09/22, 04/06/21 TECHNIQUE: Bilateral digital breast tomosynthesis was performed in the CC and MLO projections. Computer aided detection with VocalIQ 3D 3.1 was employed. TISSUE DENSITY: a. The breasts are almost entirely fatty. FINDINGS: No suspicious masses, grouped microcalcifications, or areas of architectural distortion are seen. Skin calcifications are again seen. The vascularity is unremarkable. IMPRESSION: Stable mammographic appearance of the breasts. ??No evidence of malignancy is seen. A negative mammogram in the presence of a clinically suspicious palpable abnormality does not preclude the possibility of malignancy or alter the indications for biopsy. BI-RADS: ??Category 2: Benign RECOMMENDATION(S): 1: Routine screening mammogram BILATERAL in 1 year. Dictating Physician: ??KAY CROSS MD Electronically Signed by: ??KAY CROSS MD Dic Date/Time: ??05/12/241514 Sign date/Time: ??05/12/241516 Procedure Note Kay Cross MD - 08/11/2024 [facility] Diagnostic Imaging Department [address] [place] [address] Patient: GENIE STOVALL.O.B./Age/Sex: 1970 - 53 - F Unit#: [id number] [facility] Ordering Physician: MARIA LUISA PEREZ MD [facility] Screening Digital - 05/12/24 - 1027 Report Status:Signed EXAM: [facility] Screening Digital EXAM DATE AND TIME: 05/12/2024 10:27 AM HISTORY: Screening. Paternal aunt had breast carcinoma. COMPARISON: 04/10/23, 04/09/22, 04/06/21 TECHNIQUE: Bilateral digital breast tomosynthesis was performed in the CCand MLO projections. Computer aided detection with VocalIQ 3D 3.1was employed. TISSUE DENSITY: a. The breasts are almost entirely fatty. FINDINGS: No suspicious masses, grouped microcalcifications, or areas ofarchitectural distortion are seen. Skin calcifications are again seen. The vascularityis unremarkable. IMPRESSION: Stable mammographic appearance of the breasts. No evidence of malignancyis seen. A negative mammogram in the presence of a clinically suspicious palpable abnormality does not preclude the possibility of malignancy or alter the indications for biopsy. BI-RADS: Category 2: Benign RECOMMENDATION(S): 1: Routine screening mammogram BILATERAL in 1 year. Dictating Physician: KAY CROSS MD Electronically Signed by: KAY CROSS MD Dic Date/Time: 05/12/241514 Sign date/Time: 05/12/241516 Maria Luisa Perez MD IMG BI PROCEDURES Final Result * Colonoscopy (07/23/2022) Colonoscopy Negative Anatomical Region Laterality Modality Other Historical Provider HEALTH MAINTENANCE Final Result from Last 3 Months or Most Recently Relevant to Health Maintenance Insurance [employer] Care Teams Powder Blender And Pourer Relationship Specialty Start Date End Date Maria Luisa Perez MD 175 [facility] [address] [place] [address] PCP - General Internal Medicine 11/10/24
--- OUTSIDE RECORDS SUMMARY | 2024-12-24 16:57 | XMS_ITS | Encounter Summary ---
Author Organization [facility] Address [address] [place] [address] Care Team Providers Care Brand Advisor Name Role Phone Maria Luisa Perez MD Primary Care Provider Encounter Details Date Type Department Care Team (Latest Contact Info) Description 09/09/2024 Lab Requisition [facility] [address] [place] [address] Deniz Jones MD [address] [address] Encounter for gynecological examination (general) (routine) without abnormal findings Social History Tobacco Use Types Packs/Day Years Used Date Smoking Tobacco: Never Smokeless Tobacco: Never Alcohol Use Standard Drinks/Week Comments No 0 (1 standard drink = 0.6 oz pur e alcohol) Comments Unknown Sex and Gender Information Value Date Recorded Sex Assigned at Not on file Legal Sex Female 8:37 PM EST Gender Identity Not on file Sexual Orientation Not on file documented as of this encounter Plan of Treatment Not on file documented as of this encounter Procedures Procedure Name Priority Date/Time Associated Diagnosis Comments PAP SMEAR Routine 09/09/2024 12:00 AM EST Encounter for gynecological examination (general) (routine) without abnormal findings documented in this encounter Results * Pap smear (09/09/2024 12:00 AM EST) Interpretation Negative for intraepithelial lesion or malignancy 09/14/2024 9:29 AM EST [facility] General Categorization Negative 09/14/2024 9:29 AM [facility] Specimen Adequacy Satisfactory for evaluation, endocervical/barnett sformation zone component present 09/14/2024 9:29 AM [facility] Pap Methodology Liquid Based Pap Test 09/14/2024 9:29 AM [facility] Disclaimer The Pap test is a screening test which carries an inherent false negative rate. These test results should be correlated with the patient's clinical findings and history. This Pap test was processed using an automated screening system. Technical cytopathology services provided by [facility], at [address] [place] [address] (CLIA # [id number]/Dano Dkues MD, Security Field Supervisor.) 09/14/2024 9:29 AM [facility] Console Pap Interpretation Reported 09/14/2024 9:29 AM [facility] Brushing/Spatula Cervix uteri structure / Unknown 09/09/2024 09/09/2024 3:30 PM EST us Deniz Jones MD LAB CYTOLOGY ORDERABLES Final Result Performing Organization Address City/State/[facility] Co de Phone Number [facility] [address] [place] [address], documented in this encounter Visit Diagnoses Diagnosis Encounter for gynecological examination (general) (routine) without abnormal findings documented in this encounter Care Teams Brand Advisor Relationship Specialty Start Date End Date Maria Luisa Perez MD 175 [facility] [address] [place] [address] PCP - General Internal Medicine 11/10/24 documented as of this encounter
--- OUTSIDE RECORDS SUMMARY | 2024-12-24 16:57 | XMS_ITS ---
Author Organization [facility] Address [address] [place] [address] Care Team Providers Care Test Architect Name Role Phone ZARIA GALLOWAY Unavailable [phone] ALLERGIES Allergen (clinical drug ingredient) Drug/Non Drug Allergy documented on EMR Reaction Allergy Type Onset Date Status codeine Codeine Unknown Drug Allergy Active Penicillin Unknown Drug Allergy Active REASON FOR VISIT Pt seen in office for wt mgt f/u visit with [facility] MEDICATIONS Medication SIG (Take, Route, Fr equency, [...] W/U Status Risk SNOMED Code Notes Problem Dyslipidemia (E78.5) Active confirmed 026070912 VITAL SIGNS Blood pressure systolic 112 mm Hg 11/16/19 25 Blood pressure diastolic 70 mm Hg 025 Heart Rate 78 /min 11/16/2024 Height 63 in 11/16/2024 Weight 158 lbs 11/16/2024 BMI 27.99 kg/m2 11/16/2024 Oximetry 99 % 11/16/2024 Encounters Encounter Location Date Provider Diagnosis [facility] [address] [facility] [address] [place] [address] 11/16/2024 ZARIA GALLOWAY BMI 28.0-28.9,adult Z68.28 ; Overweight (BMI 25.0-29.9) E66.3 ; Dietary counseling and surveillance Z71.3 ; Hypothyroidism, unspecified type E03.9 and Dyslipidemia E78.5 ASSESSMENTS Encounter Date Diagnosis Assessment Notes Treatment Notes Treatment Clinical Notes Section Notes 11/16/2024 BMI 28.0-28.9,adult (ICD-10 - Z68.28) #Weight Management 11/16/2024 Labs reviewed Discussed lipids and subclinical TSH Will follow lipids closely as well as TSH and total T4 for next visit Continue 2.4 mg Wegovy Spinal surgery on hold temporarily pending insurance [...] software and direct typing Please excuse inadvertent client insights consultant or typing errors, or uncorrected word substitutions Although every attempt has been made by the provider to proofread this document, occasional misspellings and typographical errors may still be present Due to the previous pandemic, and the use of personal protective equipment (PPE) This may decrease voice recognition accuracy Inadvertent client insights consultant errors may occur 11/16/2024 Overweight (BMI 25.0-29.9) (ICD-10 - E66.3) #Weight Management 11/16/2024 Labs reviewed Discussed lipids and subclinical TSH Will follow lipids closely as well as TSH and total T4 for next visit Continue 2.4 mg Wegovy Spinal surgery on hold temporarily pending insurance [...] software and direct typing Please excuse inadvertent client insights consultant or typing errors, or uncorrected word substitutions Although every attempt has been made by the provider to proofread this document, occasional misspellings and typographical errors may still be present Due to the previous pandemic, and the use of personal protective equipment (PPE) This may decrease voice recognition accuracy Inadvertent client insights consultant errors may occur 11/16/2024 Dietary counseling and surveillance (ICD-10 - Z71.3) #Weight Management 11/16/2024 Labs reviewed Discussed lipids and subclinical TSH Will follow lipids closely as well as TSH and total T4 for next visit Continue 2.4 mg Wegovy Spinal surgery on hold temporarily pending insurance [...] software and direct typing Please excuse inadvertent client insights consultant or typing errors, or uncorrected word substitutions Although every attempt has been made by the provider to proofread this document, occasional misspellings and typographical errors may still be present Due to the previous pandemic, and the use of personal protective equipment (PPE) This may decrease voice recognition accuracy Inadvertent client insights consultant errors may occur 11/16/2024 Hypothyroidism, unspecified type (ICD-10 - E03.9) #Weight Management 11/16/2024 Labs reviewed Discussed lipids and subclinical TSH Will follow lipids closely as well as TSH and total T4 for next visit Continue 2.4 mg Wegovy Spinal surgery on hold temporarily pending insurance [...] software and direct typing Please excuse inadvertent client insights consultant or typing errors, or uncorrected word substitutions Although every attempt has been made by the provider to proofread this document, occasional misspellings and typographical errors may still be present Due to the previous pandemic, and the use of personal protective equipment (PPE) This may decrease voice recognition accuracy Inadvertent client insights consultant errors may occur 11/16/2024 Dyslipidemia (ICD-10 - E78.5) #Weight Management 11/16/2024 Labs reviewed Discussed lipids and subclinical TSH Will follow lipids closely as well as TSH and total T4 for next visit Continue 2.4 mg Wegovy Spinal surgery on hold temporarily pending insurance [...] software and direct typing Please excuse inadvertent client insights consultant or typing errors, or uncorrected word substitutions Although every attempt has been made by the provider to proofread this document, occasional misspellings and typographical errors may still be present Due to the previous pandemic, and the use of personal protective equipment (PPE) This may decrease voice recognition accuracy Inadvertent client insights consultant errors may occur PLAN OF TREATMENT Pending Test Test Name Order Date LIPID PANEL, STANDARD 11/16/2024 T4 (THYROXINE), TOTAL 11/16/2024 TSH 11/16/2024 Next Appt Details Provider Name:ZARIA GALLOWAY, 12/27/2024 01:30:00 PM, 299 [facility], [place] [address], [place], [address], Provider Name:ZARIA GALLOWAY, 12/29/2024 01:00:00 PM, 299 [facility], [facility] [address], [place], [address], Progress Notes * BARB STOVALLOB:1970 ([age] yo F)Acc No.[id number]:11/16/2024 Patient:??HEATHER STOVALL Provider:??ZARIA GALLOWAY NP :1970?Age:54 Y?Sex:Fe male Date:11/16/2024 Address:[address] [id number] Subjective: * Chief Complaints: * ?1. Pt seen in office f or wt mgt f/u visit with [facility]. * HPI: ?Constitutional:? Patient is here today for a weight management followup visit ?Patient seen and examined. ? Full past medical history, social history, family history, ?allergies and current medications were reviewed and updated. ?Body composition analysis reviewed today ?#Weight Management ?11/16/2024 ?Comprehensive labs reviewed, discussed lipids as well as subclinical TSH ?At target goal weight ?Patient is currently on 2.4mg Wegovy weekly maintenance ?was scheduled to have Spinal surgery L3-L5, candice placement, postural correction ?with Hardy posada on 08/31/2024 ? this is STILL on hold for insurance authorization* ?Sx- hx- bariatric sx (sleeve) ?Denies any side effects and thriving. ? Pt states that for the most part her appetite is suppressed. ?Patient continues to try to add protein in her diet, but she says it could be better. ?Exercise/Strength and resistance training needs to improve since her muscle mass is low normal. ?Pt is walking regularly, however, does not do resistance training at the moment. ?Discussed the importance of tgis ?Takes Biotin and Multivitamin ?Is taking women's daily multivitamin and biotin 5000 mg daily supplement. ?Exercise: Currently 5-7k steps daily ?Discussed adding some form of resistance training to maintain muscle mass. ?Allergies- codeine, Penicillin V ?11/16/2024, Weight 158lbs , BMI 28 ?09/27/2024, Weight 159lbs , BMI 28 ?07/26/2024, [...] BMI (-10lbs) ?03/18/2023: Weight 212lbs, BMI 37.6 ?Patient referred to us from PCP Maria Luisa Perez MD. 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 ?Highest weight: 270 lbs ?Lowest weight: 193 lbs ?Goal weight: 150-170 lbs ?IVON screening, refused. ?Comprehensive labs October 2024 ?CBC mostly stable ?Total cholesterol 254, LDL 177, HDL 59, triglycerides 92 ?Vitamin D 26 ?TSH 0.37 ?Total T4,?Renal function electrolytes LFTs are stable ?Hemoglobin A1c of 5.2 ?Tobacco: denies ?ETOH use: denies. * ROS:?Review [...] patient * Allergies:??Penicillin, Code ine. Objective: * Vitals:??HR:78/min, BP:112/7 0mm Hg, Wt:158lbs, BMI:27.99Index, Ht: 63 in, Oxygen sat %:99%. * [...] 28.0-28.9,adult - Z68.28??3.??Dietary counseling and surveillance - Z71.3??4.??Hypothyroidism, unspecified type - E03.9??5.??Dyslipidemia - E78.5?? #Weight Management 11/16/2024 Labs reviewed Discussed lipids and subclinical TSH Will follow lipids closely as well as TSH and total T4 for next visit Continue 2.4 mg Wegovy Spinal surgery on hold temporarily pending insurance [...] software and direct typing Please excuse inadvertent client insights consultant or typing errors, or uncorrected word substitutions Although every attempt has been made by the provider to proofread this document, occasional misspellings and typographical errors may still be present Due to the previous pandemic, and the use of personal protective equipment (PPE) This may decrease voice recognition accuracy Inadvertent client insights consultant errors may occur. Plan: * Treatment: * Labs:?? * ?Lab: LIPID PANEL, STANDARD * Procedure Codes:??13097 P/M DIRECTOR OF GLOBAL TALENT, INDIV 15 MIN * Images: Billing Information: * Visit Code:?? 28522 Office Visit, Est Pt., Level 4. * Procedure Codes:?? 02011 P/M DIRECTOR OF GLOBAL TALENT, INDIV 15 MIN. * Sign off status: Completed true * Provider:??ZARIA GALLOWAY NP Date:??10/28 History and Physical Notes * HPI (History of Present Illness) Category Sub-Category Detail Notes Category Not es Constitutional Patient is here today for a weight management followup visit Patient seen and examined. Full past medical history, social history, family history, allergies and current medications were reviewed and updated. Body composition analysis reviewed today #Weight Management 11/16/2024 Comprehensive labs reviewed, discussed lipids as well as subclinical TSH At target goal weight Patient is currently on 2.4mg Wegovy weekly maintenance was scheduled to have Spinal surgery L3-L5, candice placement, postural correction with [facility] swetha on 08/31/2024 this is STILL on hold for insurance authorization* Sx- hx- bariatric sx (sleeve) Denies any side effects and thriving. Pt states that for the most part her appetite is suppressed. Patient continues to try to add protein in her diet, but she says it could be better. Exercise/Strength and resistance training needs to improve since her muscle mass is low normal. Pt is walking regularly, however, does not do resistance training at the moment. Discussed the importance of tgis Takes Biotin and Multivitamin Is taking women's daily multivitamin and biotin 5000 mg daily supplement. Exercise: Currently 5-7k steps daily Discussed adding some form of resistance training to maintain muscle mass. Allergies- codeine, Penicillin V 11/16/2024, Weight 158lbs , BMI 28 09/27/2024, Weight 159lbs , BMI 28 07/26/2024, [...] BMI (-10lbs) 03/18/2023: Weight 212lbs, BMI 37.6 Patient referred to us from PCP Maria Luisa Perez MD. 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 Highest weight: 270 lbs Lowest weight: 193 lbs Goal weight: 150-170 lbs IVON screening, refused. Comprehensive labs October 2024 CBC mostly stable Total cholesterol 254, LDL 177, HDL 59, triglycerides 92 Vitamin D 26 TSH 0.37 Total T4,? Renal function electrolytes LFTs are stable Hemoglobin A1c of 5.2 Tobacco: denies ETOH use: denies Examination Category Sub-Category Detail Notes Category Not es General Examination GENERAL APPEARANCE: in no ac mcgrath distress, well developed, well nourished HEAD: normocephalic, [...]
--- OUTSIDE RECORDS SUMMARY | 2024-12-24 16:57 | XMS_ITS ---
Author Organization [facility] Address [address] [place] [address] Care Team Providers Care Juvenile Counselor Name Role Phone ZARIA GALLOWAY Unavailable [phone] REASON FOR VISIT rx request MEDICATIONS Medication SIG (Take, Route, Fr equency, Duration) Notes Start Date End Date Status Wegovy 2.4 MG/0.75ML USE TO INJECT 2.4MG INTO THE SKIN ONCE WEEKLY 28 DAYS for 28 Active Encounters Encounter Location Date Provider Diagnosis [facility] [address] [address] 09/22/2024 ZARIA GALLOWAY PLAN OF TREATMENT Medication Medication Name Sig Start Date Stop Date Notes Wegovy 2.4 MG/0.75ML USE TO INJECT 2.4MG INTO THE SKIN ONCE WEEKLY 28 DAYS for 28 Next Appt Details Provider Name:ZARIA GALLOWAY, 12/27/2024 01:30:00 PM, 299 [facility], [place] [address], [place], [address], Provider Name:ZARIA GALLOWAY, 12/29/2024 01:00:00 PM, [address], [address], Progress Notes * BARB STOVALLOB:1970 ([age] yo F)Acc No.[id number]:09/22/2024 Patient:??HEATHER STOVALL :1970?Age:54 Y?Sex:Fe male Address:[place] [address] * Refills?? Refill Wegovy Solution Auto-injector, 2.4 MG/0.75ML, 3 Milliliter, USE TO INJECT 2.4MG INTO THE SKIN ONCE WEEKLY 28 DAYS, 28, Refills=2 * true * Date:??
--- OUTSIDE RECORDS SUMMARY | 2024-12-24 16:57 | XMS_ITS | Patient Health Record ---
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 Name Role Phone ZARIA GALLOWAY Unavailable [phone] SULLY ISRAEL Unavailable [phone] ALLERGIES Allergen (clinical drug ingredient) Drug/Non Drug Allergy documented on EMR Reaction Allergy Type Onset Date Status codeine Codeine Unknown Drug Allergy Active Penicillin Unknown Drug Allergy Active RESULTS Component Value Reference Range Notes CBC WITH AUTO DIFFERENTIAL Reviewed date:11/10/2024 09:25:08 AM Interpretation: Performing Lab: Notes/Report: WBC 4.6 4.8-10.8 K/mcL RBC 3.80 3.80-4.80 M/mcL Hemoglobin 11.3 11.5-16.0 g/dL Hematocrit 34.3 35.0-47.0 % MCV 90.0 79.0-98.0 FL MCH 29.7 27.0-32.0 pcg MCHC 32.9 32.0-37.0 g/dL RDW 12.0 11.0-15.0 % Platelets 364 130-400 K/mcL MPV 10.2 7.0-11.0 FL NRBC 0.0 <1.0 % NRBC Absolute 0.00 <0.10 K/mcL Neutrophils Relative 40.9 Lymphocytes Relative 48.2 Monocytes Relative 7.2 Eosinophils Relative 2.4 Basophils Relative 1.1 Immature Granulocytes Relative 0.2 Neutrophils Absolute 1.89 1.50-7.00 K/mcL Lymphocytes Absolute 2.22 1.00-5.00 K/mcL Monocytes Absolute 0.33 0.20-1.00 K/mcL Eosinophils Absolute 0.11 0.00-0.50 K/mcL Basophils Absolute 0.05 0.00-0.20 K/mcL Immature Granulocytes Absolute 0.01 0.00-0.03 K/mcL LIPID PANEL WITH REFLEX TO D IRECT LDL Reviewed date:11/10/2024 10:31:18 AM Interpretation: Performing Lab: Notes/Report: Cholesterol 254 0-200 mg/dL Triglycerides 92 0-150 mg/dL HDL 59 >=40 mg/dL LDL Calculated 177 0-100 mg/dL VLDL Cholesterol Elliot 18.4 Non HDL Chol. (LDL+VLDL) 195 <145 mg/dL Chol/HDL Ratio 4.3 0.0-4.4 VITAMIN D 25 HYDROXY Reviewed date:11/10/2024 10:31:18 AM Interpretation: Performing Lab: Notes/Report: Vit D, 25-Hydroxy 26.5 30.0-80.0 ng/mL THYROID STIMULATING HORMONE Reviewed date:11/10/2024 03:02:45 PM Interpretation: Performing Lab: Notes/Report: TSH 0.37 0.40-4.00 mcIU/mL COMPREHENSIVE METABOLIC PANE L Reviewed date:11/10/2024 10:31:18 AM Interpretation: Performing Lab: Notes/Report: Sodium 139 133-145 mmol/L Potassium 4.0 3.5-5.5 mmol/L Chloride 106 96-110 mmol/L CO2 26 21-32 mmol/L Anion Gap 7 3-11 Glucose 76 70-100 mg/dL BUN 13 5-25 mg/dL Creatinine 0.54 0.50-1.10 mg/dL eGFR 110 >=60 mL/min/1.73m2 Calculati on based on the Chronic Kidney Disease Epidemiology Collaboration (CKD-EPI) equation refit without adjustment for race. BUN/Creatinine Ratio 24.1 Calcium 9.3 8.5-10.5 mg/dL AST (SGOT) 14 10-42 unit/L ALT (SGPT) 23 10-60 unit/L Alkaline Phosphatase 50 42-121 unit/L Total Protein 7.5 6.0-8.0 g/dL Albumin 3.9 3.2-5.0 g/dL Total Bilirubin 0.7 0.0-1.4 mg/dL HEMOGLOBIN A1C Reviewed date:11/10/2024 05:01:43 PM Interpretation: Performing Lab: Notes/Report: Hemoglobin A1C 5.2 <6.5 % Mean Bld Glu Estim. 103 URINALYSIS WITH REFLEX MICRO SCOPIC Reviewed date:11/10/2024 09:48:13 AM Interpretation: Performing Lab: Notes/Report: Specific [place] Urine 1.022 1.003-1.030 pH, Urine 5.0 5.0-8.0 pH Leukocytes, Urine Small Negative Nitrite, Urine Negative Negative Protein, Urine Negative <=Trace mg/dL Glucose, Urine Negative Negative mg/dL Ketones, Urine Negative Negative mg/dL Urobilinogen, Urine 0.2 0.2-1.0 mg/dL Bilirubin, Urine Negative Negative Blood, Urine Negative Negative REASON FOR REFERRAL No Information MEDICATIONS Medication SIG (Take, Route, Fr equency, [...] Question Answer Notes Are you a nonsmoker Alcohol Screen (Audit-C) Question Answer Notes Did you have a drink containing alcohol in the p ast year? No Points 0 Interpretation Negative PROBLEMS Problem Type ICD Code Onset Dates Problem Status W/U Status Risk SNOMED Code Notes Problem Vitamin D deficiency, unspecified (E55.9) Active confirmed Vitamin D deficiency (33475771) Problem Other obesity due to excess calories (E66.09) Active confirmed 513975661 Problem Encounter for screening for lipoid disorders (Z13.220) Active confirmed Lipid screening (016927572) Problem Adult general medical exam (Z00.00) Active confirmed Adult health examination (603994783) Problem Hypothyroidism, unspecified type (E03.9) Active confirmed Hypothyroidism (82483605) Problem Diabetes mellitus screening (Z13.1) Active confirmed Diabetes mellit us screening (747137083) Problem Body mass index [BMI] 37.0-37.9, adult (Z68.37) Active confirmed 312512063 Problem Dyslipidemia (E78.5) Active confirmed 613425171 Problem BMI 35.0-35.9,adult (Z68.35) Active confirmed 884476677 Problem BMI 31.0-31.9,adult (Z68.31) Active confirmed 709257821 Problem Overweight (BMI 25.0-29.9) (E66.3) Active confirmed Overweight (561596931) Problem Encounter for screening for endocrine disorder (Z13.29) Active confirmed Endocrine/metab ol ic screening (000801323) VITAL SIGNS Heart Rate 78 /min 11/16/2024 Oximetry 99 % 11/16/2024 Blood pressure diastolic 70 mm Hg 11/16/2024 Height 63 in 11/16/2024 Blood pressure systolic 112 mm Hg 11/16/2024 Weight 158 lbs 11/16/2024 BMI 27.99 kg/m2 11/16/2024 Encounters Encounter Location Date Provider Diagnosis [place] [address] [id number] 02/04/2024 ZARIA GALLOWAY [place] [address] 08/23/2024 SULLY ISRAEL [place] [address] 09/20/2024 ZARIA GALLOWAY [address] 02/05/2024 ZARIA GALLOWAY Overweight (BMI 25.0-29.9) E66.3 and BMI 28.0-28.9,adult Z68.[address] 03/29/2024 ZARIAMARINO GALLOWAY Overweight (BMI 25.0-29.9) E66.3 ; BMI 28.0-28.9,adult Z68.28 and Dietary counseling and surveillance Z71.[address] [address] 06/01/2024 ZARIAMARINO VAZQUEZT Overweight (BMI 25.0-29.9) E66.3 ; BMI 27.0-27.9,adult Z68.27 and Dietary counseling and surveillance Z71.3 [place] [address] [address] 07/26/2024 ZARIAMARINO GALLOWAY BMI 27.0-27.9,adult Z68.27 ; Overweight (BMI 25.0-29.9) E66.3 and Dietary counseling and surveillance Z71.3 [place] [address] [address] 09/27/2024 ZARIA CORAZONHOT BMI 28.0-28.9,adult Z68.28 ; Overweight (BMI 25.0-29.9) E66.3 and Dietary counseling and surveillance Z71.[address] 11/16/2024 ZARIA BORHOT BMI 28.0-28.9,adult Z68.28 ; Overweight (BMI 25.0-29.9) E66.3 ; Dietary counseling and surveillance Z71.3 ; Hypothyroidism, unspecified type E03.9 and Dyslipidemia E78.[address] [address] 03/09/2024 ZARIA CROAZONHOT Overweight (BMI 25.0-29.9) E66.3 [place] [address] 03/16/2024 ZARIA BORHOT [address] [address] 03/30/2024 ZARIA CORAZONHOT Overweight (BMI 25.0-29.9) E66.[address] [address] 09/16/2024 ZARIA BORHOT [address] 09/22/2024 ZARIA VAZQUEZT ASSESSMENTS Encounter Date Diagnosis Assessment Notes Treatment Notes Treatment Clinical Notes Section Notes 03/29/2024 BMI 28.0-28.9,adult (ICD-10 - Z68.28) #Weight Management 03/29/2024 Check on status of appeal for PA Catie We stressed the importance of adequate protein intake at the level of 75 g a day Strength and resistance training as well as muscle building activities given decreasing muscle composition Pt is on Wegovy 2.4 mg weekly injectable. She is closing in on her target goal weight and we discussed maintenance dosing moving forward f/u in 4-6 weeks for further weight management and SECA scan Total time spent today was 30 minutes [...] mentioned above and not solely appetite suppression. We have discussed the mechanism of GLP-1's/GIP I think this would be fantastic option for her given her metabolic workup and body composition We have discussed the risks and benefits and side effects including/and not limited to Sarcopenia, intestinal obstruction, constipation, nausea, lethargy, headache There is no history of medullary thyroid cancer or multiple endocrine neoplasia There is also no history of cardiovascular disease, hypertension, palpitations, or arrhythmias In the setting of potential stimulant/amphetam ine use such as phentermine Patient was reassured and welcomed to the practice. We discussed that we stress a hollistic medical approach with emphasis on lifestyle modification. Patient was informed that a healthy lifestyle with exercise and good eating habits can help reduce his risk of medical complications. He is explained that obesity increases his risk of diabetes, cardiovascular disease, or organ damage. We spent a lot of time discussing the relationship between food, exercise, sleep, mental health and obesity. Patient was counseled on the importance EATING local, organic food when possible. Patient was educated on clean 15 and dirty dozen. I provided information about reading books called The Food Rules by Krunal Newberry and Eat Fat Get Lean by Dr Golden Lopez. Self education is important in the journey for weight management. Patient was offered diagnostic testing. We want to measure visceral adiposity, advanced body composition, adverse lipids, fatty acid balance, risk for heart disease and atherosclerosis, markers of inflammation and genetic susceptibility. Patient was counseled on weight management and was advised to lose weight using A. Meal Replacement Products Patient was educated on the replacement products called optifast. This is a good way of taking fixed amount of calories. It has been shown in studies to be ineffective weight management tool. This however has to be coupled with lifestyle intervention as well as laboratory data and EKG monitoring. It is impossible to know how a person will tolerate complete meal replacement. The side effects of meal replacement and weight loss could include syncopal attacks, dizziness, gallstones, potential cholecystectomy, possible heart attack and even . The benefits of meal replacement would be potential weight loss but no guarantees can be made. Meal replacement products are not covered by insurance. Once the patient has bought these products we cannot return them B. Lifestyle management which includes several strategies as below 1. Eat a low carbohydrate good fat good protein diet. Eliminate refined carbohydrates from the diet. Continue blood sugar and sugared beverages. Eat local organic when possible. Cook your own meals. Read food labels. None about healthy snacks. Portion control and food with low glycemic index 2. Exercise regularly. Try to get at least 6000 steps a day. Use a predominant to track activity level. Consider using apps like Tongal, Remember The [employer], lose it, stick as needed for self-monitoring and weight management. Consider group exercises. Consider hiring a personal development mentor. Regular exercise is kilgore to sustainable health and prevents as a buffer against weight regain 3. Sleep is most important for healing. Tried to sleep at least 8 hours a night. A good quality sleep needs a sleep ritual with ideal room temperature of around 68. It might help to take a shower and have no electronics in the room and sleep in a very dark room without artificial light. Start her sleep routine and get up early in the morning and go to bed on time 4. Make a social connection. Surround yourself with positive people with positive energy. Connect with friends and family. 5. Get into the habit of meditating and mindfulness while doing everything. 6. Go outside and connect with nature. C. Prescription medications Patient was educated on the use of prescription medications for medical weight loss. This is a growing list and includes phentermine, Topamax,Qsymia, contrave, belviq and saxenda. All prescription medications could have side effects including but not limited to kidney stones, seizure disorder cardiac arrhythmias heart attack pancreatitis etc. etc.. Patient was encouraged to read the prescription insert and have coaching with their pharmacist and make an informed decision about taking medication and know that these medications are being prescribed with good intentions and we do not know how a patient would react to her medication. Sudden medications are FDA approved for weight loss and there is also off label use depending on patient's inability to afford medications in an attempt to lose weight D. Behavioral counseling was done to establish a relationship between food and an mood. Patient was provided information about local counseling and psychiatry and Dr Villeda at [facility]. We would like to cover regular topics and build on low glycemic eating exercise mindful eating, using yoga and meditation along with deep breathing and connecting with friends and family. E. MASS PAT reviewed, Patient's current medications were reviewed and opinion was given on medication that can cause weight gain and can be substituted F. Patient was assessed for risk with obesity including and not limiting to atherosclerosis heart disease stroke kidney disease, restrictive lung disease, irritable bowel syndrome and overall mortality. Risk of developing prediabetes diabetes and metabolic syndrome was discussed G. Therapeutic plan: We have decided to make therapeutic plan which would include choosing wisely on calories restricting portion getting active, tracking weight, getting good quality sleep and working on time management H. Patient will follow up in (4) weeks for weight management Of note, some information is being carried forward from prior records for informational purposes only and is being cited so that efficiency, safety and quality of the patient's care is not compromised This note was prepared using voice recognition software and direct typing Please excuse inadvertent laborer cement gun placing or typing errors, or uncorrected word substitutions Although every attempt has been made by the provider to proofread this document, occasional misspellings and typographical errors may still be present Due to the previous pandemic, and the use of personal protective equipment (PPE) This may decrease voice recognition accuracy Inadvertent laborer cement gun placing errors may occur 03/29/2024 Overweight (BMI 25.0-29.9) (ICD-10 - E66.3) #Weight Management 03/29/2024 Check on status of appeal for PA Catie We stressed the importance of adequate protein intake at the level of 75 g a day Strength and resistance training as well as muscle building activities given decreasing muscle composition Pt is on Wegovy 2.4 mg weekly injectable. She is closing in on her target goal weight and we discussed maintenance dosing moving forward f/u in 4-6 weeks for further weight management and SECA scan Total time spent today was 30 minutes [...] mentioned above and not solely appetite suppression. We have discussed the mechanism of GLP-1's/GIP I think this would be fantastic option for her given her metabolic workup and body composition We have discussed the risks and benefits and side effects including/and not limited to Sarcopenia, intestinal obstruction, constipation, nausea, lethargy, headache There is no history of medullary thyroid cancer or multiple endocrine neoplasia There is also no history of cardiovascular disease, hypertension, palpitations, or arrhythmias In the setting of potential stimulant/amphetam ine use such as phentermine Patient was reassured and welcomed to the practice. We discussed that we stress a hollistic medical approach with emphasis on lifestyle modification. Patient was informed that a healthy lifestyle with exercise and good eating habits can help reduce his risk of medical complications. He is explained that obesity increases his risk of diabetes, cardiovascular disease, or organ damage. We spent a lot of time discussing the relationship between food, exercise, sleep, mental health and obesity. Patient was counseled on the importance EATING local, organic food when possible. Patient was educated on clean 15 and dirty dozen. I provided information about reading books called The Food Rules by Krunal Newberry and Eat Fat Get Lean by Dr Golden Lopez. Self education is important in the journey for weight management. Patient was offered diagnostic testing. We want to measure visceral adiposity, advanced body composition, adverse lipids, fatty acid balance, risk for heart disease and atherosclerosis, markers of inflammation and genetic susceptibility. Patient was counseled on weight management and was advised to lose weight using A. Meal Replacement Products Patient was educated on the replacement products called optifast. This is a good way of taking fixed amount of calories. It has been shown in studies to be ineffective weight management tool. This however has to be coupled with lifestyle intervention as well as laboratory data and EKG monitoring. It is impossible to know how a person will tolerate complete meal replacement. The side effects of meal replacement and weight loss could include syncopal attacks, dizziness, gallstones, potential cholecystectomy, possible heart attack and even . The benefits of meal replacement would be potential weight loss but no guarantees can be made. Meal replacement products are not covered by insurance. Once the patient has bought these products we cannot return them B. Lifestyle management which includes several strategies as below 1. Eat a low carbohydrate good fat good protein diet. Eliminate refined carbohydrates from the diet. Continue blood sugar and sugared beverages. Eat local organic when possible. Cook your own meals. Read food labels. None about healthy snacks. Portion control and food with low glycemic index 2. Exercise regularly. Try to get at least 6000 steps a day. Use a predominant to track activity level. Consider using apps like Tongal, Remember The [employer], lose it, stick as needed for self-monitoring and weight management. Consider group exercises. Consider hiring a personal development mentor. Regular exercise is kilgore to sustainable health and prevents as a buffer against weight regain 3. Sleep is most important for healing. Tried to sleep at least 8 hours a night. A good quality sleep needs a sleep ritual with ideal room temperature of around 68. It might help to take a shower and have no electronics in the room and sleep in a very dark room without artificial light. Start her sleep routine and get up early in the morning and go to bed on time 4. Make a social connection. Surround yourself with positive people with positive energy. Connect with friends and family. 5. Get into the habit of meditating and mindfulness while doing everything. 6. Go outside and connect with nature. C. Prescription medications Patient was educated on the use of prescription medications for medical weight loss. This is a growing list and includes phentermine, Topamax,Qsymia, contrave, belviq and saxenda. All prescription medications could have side effects including but not limited to kidney stones, seizure disorder cardiac arrhythmias heart attack pancreatitis etc. etc.. Patient was encouraged to read the prescription insert and have coaching with their pharmacist and make an informed decision about taking medication and know that these medications are being prescribed with good intentions and we do not know how a patient would react to her medication. Sudden medications are FDA approved for weight loss and there is also off label use depending on patient's inability to afford medications in an attempt to lose weight D. Behavioral counseling was done to establish a relationship between food and an mood. Patient was provided information about local counseling and psychiatry and Dr Villeda at [facility]. We would like to cover regular topics and build on low glycemic eating exercise mindful eating, using yoga and meditation along with deep breathing and connecting with friends and family. E. MASS PAT reviewed, Patient's current medications were reviewed and opinion was given on medication that can cause weight gain and can be substituted F. Patient was assessed for risk with obesity including and not limiting to atherosclerosis heart disease stroke kidney disease, restrictive lung disease, irritable bowel syndrome and overall mortality. Risk of developing prediabetes diabetes and metabolic syndrome was discussed G. Therapeutic plan: We have decided to make therapeutic plan which would include choosing wisely on calories restricting portion getting active, tracking weight, getting good quality sleep and working on time management H. Patient will follow up in (4) weeks for weight management Of note, some information is being carried forward from prior records for informational purposes only and is being cited so that efficiency, safety and quality of the patient's care is not compromised This note was prepared using voice recognition software and direct typing Please excuse inadvertent laborer cement gun placing or typing errors, or uncorrected word substitutions Although every attempt has been made by the provider to proofread this document, occasional misspellings and typographical errors may still be present Due to the previous pandemic, and the use of personal protective equipment (PPE) This may decrease voice recognition accuracy Inadvertent laborer cement gun placing errors may occur 03/30/2024 Overweight (BMI 25.0-29.9) (ICD-10 - E66.3) 02/05/2024 Overweight (BMI 25.0-29.9) (ICD-10 - E66.3) #Weight Management 02/05/2024 We stressed the importance of adequate protein intake at the level of 75 g a day Strength and resistance training as well as muscle building activities given decreasing muscle composition Pt is on Wegovy 2.4 mg weekly injectable. We have congratulated her on leaving the obesity world She is closing in on her target goal weight and we discussed maintenance dosing moving forward f/u in 4-6 weeks for further weight management and SECA scan Total time spent today was 30 minutes [...] mentioned above and not solely appetite suppression. We have discussed the mechanism of GLP-1's/GIP I think this would be fantastic option for her given her metabolic workup and body composition We have discussed the risks and benefits and side effects including/and not limited to Sarcopenia, intestinal obstruction, constipation, nausea, lethargy, headache There is no history of medullary thyroid cancer or multiple endocrine neoplasia There is also no history of cardiovascular disease, hypertension, palpitations, or arrhythmias In the setting of potential stimulant/amphetam ine use such as phentermine Patient was reassured and welcomed to the practice. We discussed that we stress a hollistic medical approach with emphasis on lifestyle modification. Patient was informed that a healthy lifestyle with exercise and good eating habits can help reduce his risk of medical complications. He is explained that obesity increases his risk of diabetes, cardiovascular disease, or organ damage. We spent a lot of time discussing the relationship between food, exercise, sleep, mental health and obesity. Patient was counseled on the importance EATING local, organic food when possible. Patient was educated on clean 15 and dirty dozen. I provided information about reading books called The Food Rules by Krunal Newberry and Eat Fat Get Lean by Dr Golden Lopez. Self education is important in the journey for weight management. Patient was offered diagnostic testing. We want to measure visceral adiposity, advanced body composition, adverse lipids, fatty acid balance, risk for heart disease and atherosclerosis, markers of inflammation and genetic susceptibility. Patient was counseled on weight management and was advised to lose weight using A. Meal Replacement Products Patient was educated on the replacement products called optifast. This is a good way of taking fixed amount of calories. It has been shown in studies to be ineffective weight management tool. This however has to be coupled with lifestyle intervention as well as laboratory data and EKG monitoring. It is impossible to know how a person will tolerate complete meal replacement. The side effects of meal replacement and weight loss could include syncopal attacks, dizziness, gallstones, potential cholecystectomy, possible heart attack and even . The benefits of meal replacement would be potential weight loss but no guarantees can be made. Meal replacement products are not covered by insurance. Once the patient has bought these products we cannot return them B. Lifestyle management which includes several strategies as below 1. Eat a low carbohydrate good fat good protein diet. Eliminate refined carbohydrates from the diet. Continue blood sugar and sugared beverages. Eat local organic when possible. Cook your own meals. Read food labels. None about healthy snacks. Portion control and food with low glycemic index 2. Exercise regularly. Try to get at least 6000 steps a day. Use a predominant to track activity level. Consider using apps like Tongal, myfitnesspal, lose it, stick as needed for self-monitoring and weight management. Consider group exercises. Consider hiring a personal development mentor. Regular exercise is kilgore to sustainable health and prevents as a buffer against weight regain 3. Sleep is most important for healing. Tried to sleep at least 8 hours a night. A good quality sleep needs a sleep ritual with ideal room temperature of around 68. It might help to take a shower and have no electronics in the room and sleep in a very dark room without artificial light. Start her sleep routine and get up early in the morning and go to bed on time 4. Make a social connection. Surround yourself with positive people with positive energy. Connect with friends and family. 5. Get into the habit of meditating and mindfulness while doing everything. 6. Go outside and connect with nature. C. Prescription medications Patient was educated on the use of prescription medications for medical weight loss. This is a growing list and includes phentermine, Topamax,Qsymia, contrave, belviq and saxenda. All prescription medications could have side effects including but not limited to kidney stones, seizure disorder cardiac arrhythmias heart attack pancreatitis etc. etc.. Patient was encouraged to read the prescription insert and have coaching with their pharmacist and make an informed decision about taking medication and know that these medications are being prescribed with good intentions and we do not know how a patient would react to her medication. Sudden medications are FDA approved for weight loss and there is also off label use depending on patient's inability to afford medications in an attempt to lose weight D. Behavioral counseling was done to establish a relationship between food and an mood. Patient was provided information about local counseling and psychiatry and Dr Villeda at [facility]. We would like to cover regular topics and build on low glycemic eating exercise mindful eating, using yoga and meditation along with deep breathing and connecting with friends and family. E. MASS PAT reviewed, Patient's current medications were reviewed and opinion was given on medication that can cause weight gain and can be substituted F. Patient was assessed for risk with obesity including and not limiting to atherosclerosis heart disease stroke kidney disease, restrictive lung disease, irritable bowel syndrome and overall mortality. Risk of developing prediabetes diabetes and metabolic syndrome was discussed G. Therapeutic plan: We have decided to make therapeutic plan which would include choosing wisely on calories restricting portion getting active, tracking weight, getting good quality sleep and working on time management H. Patient will follow up in (4) weeks for weight management Of note, some information is being carried forward from prior records for informational purposes only and is being cited so that efficiency, safety and quality of the patient's care is not compromised This note was prepared using voice recognition software and direct typing Please excuse inadvertent laborer cement gun placing or typing errors, or uncorrected word substitutions Although every attempt has been made by the provider to proofread this document, occasional misspellings and typographical errors may still be present Due to the previous pandemic, and the use of personal protective equipment (PPE) This may decrease voice recognition accuracy Inadvertent laborer cement gun placing errors may occur 03/09/2024 Overweight (BMI 25.0-29.9) (ICD-10 - E66.3) 06/01/2024 BMI 27.0-27.9,adult (ICD-10 - Z68.27) #Weight Management 06/01/2024 Will pull back to every other week maintenance dosing Discussed protein and muscle and's strength and resistance training Follow-up on labs in the fall with her PCP We stressed the importance of adequate protein intake at the level of 75 g a day Total time spent today was 30 minutes of which greater than 50% was spent on coordinating and counseling Patient has been found to be overweight with a BMI of (27). We are a board certified obesity and weight management practice Patient has trialed behavioral modification, dietary restrictions and exercise for a minimum of 6 months Patient counseled regarding effects of GLP/GIP-1 agonists, and other FDA approved wgt loss meds with regards to a multifactorial approach of weight loss as mentioned above and not solely appetite suppression. We have discussed the mechanism of GLP-1's/GIP I think this would be fantastic option for her given her metabolic workup and body composition We have discussed the risks and benefits and side effects including/and not limited to Sarcopenia, intestinal obstruction, constipation, nausea, lethargy, headache There is no history of medullary thyroid cancer or multiple endocrine neoplasia There is also no history of cardiovascular disease, hypertension, palpitations, or arrhythmias In the setting of potential stimulant/amphetam ine use such as phentermine Patient was reassured and welcomed to the practice. We discussed that we stress a hollistic medical approach with emphasis on lifestyle modification. Patient was informed that a healthy lifestyle with exercise and good eating habits can help reduce his risk of medical complications. He is explained that obesity increases his risk of diabetes, cardiovascular disease, or organ damage. We spent a lot of time discussing the relationship between food, exercise, sleep, mental health and obesity. Patient was counseled on the importance EATING local, organic food when possible. Patient was educated on clean 15 and dirty dozen. I provided information about reading books called The Food Rules by Krunal Newberry and Eat Fat Get Lean by Dr Golden Lopez. Self education is important in the journey for weight management. Patient was offered diagnostic testing. We want to measure visceral adiposity, advanced body composition, adverse lipids, fatty acid balance, risk for heart disease and atherosclerosis, markers of inflammation and genetic susceptibility. Patient was counseled on weight management and was advised to lose weight using A. Meal Replacement Products Patient was educated on the replacement products called optifast. This is a good way of taking fixed amount of calories. It has been shown in studies to be ineffective weight management tool. This however has to be coupled with lifestyle intervention as well as laboratory data and EKG monitoring. It is impossible to know how a person will tolerate complete meal replacement. The side effects of meal replacement and weight loss could include syncopal attacks, dizziness, gallstones, potential cholecystectomy, possible heart attack and even . The benefits of meal replacement would be potential weight loss but no guarantees can be made. Meal replacement products are not covered by insurance. Once the patient has bought these products we cannot return them B. Lifestyle management which includes several strategies as below 1. Eat a low carbohydrate good fat good protein diet. Eliminate refined carbohydrates from the diet. Continue blood sugar and sugared beverages. Eat local organic when possible. Cook your own meals. Read food labels. None about healthy snacks. Portion control and food with low glycemic index 2. Exercise regularly. Try to get at least 6000 steps a day. Use a predominant to track activity level. Consider using apps like Pur[employer], myAdmitlypal, lose it, stick as needed for self-monitoring and weight management. Consider group exercises. Consider hiring a personal development mentor. Regular exercise is kilgore to sustainable health and prevents as a buffer against weight regain 3. Sleep is most important for healing. Tried to sleep at least 8 hours a night. A good quality sleep needs a sleep ritual with ideal room temperature of around 68. It might help to take a shower and have no electronics in the room and sleep in a very dark room without artificial light. Start her sleep routine and get up early in the morning and go to bed on time 4. Make a social connection. Surround yourself with positive people with positive energy. Connect with friends and family. 5. Get into the habit of meditating and mindfulness while doing everything. 6. Go outside and connect with nature. C. Prescription medications Patient was educated on the use of prescription medications for medical weight loss. This is a growing list and includes phentermine, Topamax,Qsymia, contrave, belviq and saxenda. All prescription medications could have side effects including but not limited to kidney stones, seizure disorder cardiac arrhythmias heart attack pancreatitis etc. etc.. Patient was encouraged to read the prescription insert and have coaching with their pharmacist and make an informed decision about taking medication and know that these medications are being prescribed with good intentions and we do not know how a patient would react to her medication. Sudden medications are FDA approved for weight loss and there is also off label use depending on patient's inability to afford medications in an attempt to lose weight D. Behavioral counseling was done to establish a relationship between food and an mood. Patient was provided information about local counseling and psychiatry and Dr Villeda at [facility]. We would like to cover regular topics and build on low glycemic eating exercise mindful eating, using yoga and meditation along with deep breathing and connecting with friends and family. E. MASS PAT reviewed, Patient's current medications were reviewed and opinion was given on medication that can cause weight gain and can be substituted F. Patient was assessed for risk with obesity including and not limiting to atherosclerosis heart disease stroke kidney disease, restrictive lung disease, irritable bowel syndrome and overall mortality. Risk of developing prediabetes diabetes and metabolic syndrome was discussed G. Therapeutic plan: We have decided to make therapeutic plan which would include choosing wisely on calories restricting portion getting active, tracking weight, getting good quality sleep and working on time management H. Patient will follow up in (4) weeks for weight management Of note, some information is being carried forward from prior records for informational purposes only and is being cited so that efficiency, safety and quality of the patient's care is not compromised This note was prepared using voice recognition software and direct typing Please excuse inadvertent laborer cement gun placing or typing errors, or uncorrected word substitutions Although every attempt has been made by the provider to proofread this document, occasional misspellings and typographical errors may still be present Due to the previous pandemic, and the use of personal protective equipment (PPE) This may decrease voice recognition accuracy Inadvertent laborer cement gun placing errors may occur 06/01/2024 Overweight (BMI 25.0-29.9) (ICD-10 - E66.3) #Weight Management 06/01/2024 Will pull back to every other week maintenance dosing Discussed protein and muscle and's strength and resistance training Follow-up on labs in the fall with her PCP We stressed the importance of adequate protein intake at the level of 75 g a day Total time spent today was 30 minutes of which greater than 50% was spent on coordinating and counseling Patient has been found to be overweight with a BMI of (27). We are a board certified obesity and weight management practice Patient has trialed behavioral modification, dietary restrictions and exercise for a minimum of 6 months Patient counseled regarding effects of GLP/GIP-1 agonists, and other FDA approved wgt loss meds with regards to a multifactorial approach of weight loss as mentioned above and not solely appetite suppression. We have discussed the mechanism of GLP-1's/GIP I think this would be fantastic option for her given her metabolic workup and body composition We have discussed the risks and benefits and side effects including/and not limited to Sarcopenia, intestinal obstruction, constipation, nausea, lethargy, headache There is no history of medullary thyroid cancer or multiple endocrine neoplasia There is also no history of cardiovascular disease, hypertension, palpitations, or arrhythmias In the setting of potential stimulant/amphetam ine use such as phentermine Patient was reassured and welcomed to the practice. We discussed that we stress a hollistic medical approach with emphasis on lifestyle modification. Patient was informed that a healthy lifestyle with exercise and good eating habits can help reduce his risk of medical complications. He is explained that obesity increases his risk of diabetes, cardiovascular disease, or organ damage. We spent a lot of time discussing the relationship between food, exercise, sleep, mental health and obesity. Patient was counseled on the importance EATING local, organic food when possible. Patient was educated on clean 15 and dirty dozen. I provided information about reading books called The Food Rules by Krunal Newberry and Eat Fat Get Lean by Dr Golden Lopez. Self education is important in the journey for weight management. Patient was offered diagnostic testing. We want to measure visceral adiposity, advanced body composition, adverse lipids, fatty acid balance, risk for heart disease and atherosclerosis, markers of inflammation and genetic susceptibility. Patient was counseled on weight management and was advised to lose weight using A. Meal Replacement Products Patient was educated on the replacement products called optifast. This is a good way of taking fixed amount of calories. It has been shown in studies to be ineffective weight management tool. This however has to be coupled with lifestyle intervention as well as laboratory data and EKG monitoring. It is impossible to know how a person will tolerate complete meal replacement. The side effects of meal replacement and weight loss could include syncopal attacks, dizziness, gallstones, potential cholecystectomy, possible heart attack and even . The benefits of meal replacement would be potential weight loss but no guarantees can be made. Meal replacement products are not covered by insurance. Once the patient has bought these products we cannot return them B. Lifestyle management which includes several strategies as below 1. Eat a low carbohydrate good fat good protein diet. Eliminate refined carbohydrates from the diet. Continue blood sugar and sugared beverages. Eat local organic when possible. Cook your own meals. Read food labels. None about healthy snacks. Portion control and food with low glycemic index 2. Exercise regularly. Try to get at least 6000 steps a day. Use a predominant to track activity level. Consider using apps like Tongal, myfitMicroTransponderpal, lose it, stick as needed for self-monitoring and weight management. Consider group exercises. Consider hiring a personal development mentor. Regular exercise is kilgore to sustainable health and prevents as a buffer against weight regain 3. Sleep is most important for healing. Tried to sleep at least 8 hours a night. A good quality sleep needs a sleep ritual with ideal room temperature of around 68. It might help to take a shower and have no electronics in the room and sleep in a very dark room without artificial light. Start her sleep routine and get up early in the morning and go to bed on time 4. Make a social connection. Surround yourself with positive people with positive energy. Connect with friends and family. 5. Get into the habit of meditating and mindfulness while doing everything. 6. Go outside and connect with nature. C. Prescription medications Patient was educated on the use of prescription medications for medical weight loss. This is a growing list and includes phentermine, Topamax,Qsymia, contrave, belviq and saxenda. All prescription medications could have side effects including but not limited to kidney stones, seizure disorder cardiac arrhythmias heart attack pancreatitis etc. etc.. Patient was encouraged to read the prescription insert and have coaching with their pharmacist and make an informed decision about taking medication and know that these medications are being prescribed with good intentions and we do not know how a patient would react to her medication. Sudden medications are FDA approved for weight loss and there is also off label use depending on patient's inability to afford medications in an attempt to lose weight D. Behavioral counseling was done to establish a relationship between food and an mood. Patient was provided information about local counseling and psychiatry and Dr Villeda at [facility]. We would like to cover regular topics and build on low glycemic eating exercise mindful eating, using yoga and meditation along with deep breathing and connecting with friends and family. E. MASS PAT reviewed, Patient's current medications were reviewed and opinion was given on medication that can cause weight gain and can be substituted F. Patient was assessed for risk with obesity including and not limiting to atherosclerosis heart disease stroke kidney disease, restrictive lung disease, irritable bowel syndrome and overall mortality. Risk of developing prediabetes diabetes and metabolic syndrome was discussed G. Therapeutic plan: We have decided to make therapeutic plan which would include choosing wisely on calories restricting portion getting active, tracking weight, getting good quality sleep and working on time management H. Patient will follow up in (4) weeks for weight management Of note, some information is being carried forward from prior records for informational purposes only and is being cited so that efficiency, safety and quality of the patient's care is not compromised This note was prepared using voice recognition software and direct typing Please excuse inadvertent laborer cement gun placing or typing errors, or uncorrected word substitutions Although every attempt has been made by the provider to proofread this document, occasional misspellings and typographical errors may still be present Due to the previous pandemic, and the use of personal protective equipment (PPE) This may decrease voice recognition accuracy Inadvertent laborer cement gun placing errors may occur 09/27/2024 BMI 28.0-28.9,adult (ICD-10 - Z68.28) #Weight [...] software and direct typing Please excuse inadvertent laborer cement gun placing or typing errors, or uncorrected word substitutions Although every attempt has been made by the provider to proofread this document, occasional misspellings and typographical errors may still be present Due to the previous pandemic, and the use of personal protective equipment (PPE) This may decrease voice recognition accuracy Inadvertent laborer cement gun placing errors may occur 11/16/2024 BMI 28.0-28.9,adult (ICD-10 - Z68.28) #Weight [...] software and direct typing Please excuse inadvertent laborer cement gun placing or typing errors, or uncorrected word substitutions Although every attempt has been made by the provider to proofread this document, occasional misspellings and typographical errors may still be present Due to the previous pandemic, and the use of personal protective equipment (PPE) This may decrease voice recognition accuracy Inadvertent laborer cement gun placing errors may occur 07/26/2024 BMI 27.0-27.9,adult (ICD-10 - Z68.27) #Weight Management 07/26/2024 scheduled upcoming spinal surgery 08/31/2024, dc stopping GLP 10-14 days prior Discussed protein and muscle and's strength and resistance training *Follow-up on labs in the fall with her PCP We stressed the importance of adequate protein intake at the level of 75 g a day Total time spent today was 30 minutes of which greater than 50% was spent on coordinating and counseling Patient has been found to be overweight with a BMI of (27). We are a board certified obesity and weight management practice Patient has trialed behavioral modification, dietary restrictions and exercise for a minimum of 6 months Patient counseled regarding effects of GLP/GIP-1 agonists, and other FDA approved wgt loss meds with regards to a multifactorial approach of weight loss as mentioned above and not solely appetite suppression. We have discussed the mechanism of GLP-1's/GIP I think this would be fantastic option for her given her metabolic workup and body composition We have discussed the risks and benefits and side effects including/and not limited to Sarcopenia, intestinal obstruction, constipation, nausea, lethargy, headache There is no history of medullary thyroid cancer or multiple endocrine neoplasia There is also no history of cardiovascular disease, hypertension, palpitations, or arrhythmias In the setting of potential stimulant/amphetam ine use such as phentermine Patient was reassured and welcomed to the practice. We discussed that we stress a hollistic medical approach with emphasis on lifestyle modification. Patient was informed that a healthy lifestyle with exercise and good eating habits can help reduce his risk of medical complications. He is explained that obesity increases his risk of diabetes, cardiovascular disease, or organ damage. We spent a lot of time discussing the relationship between food, exercise, sleep, mental health and obesity. Patient was counseled on the importance EATING local, organic food when possible. Patient was educated on clean 15 and dirty dozen. I provided information about reading books called The Food Rules by Krunal Newberry and Eat Fat Get Lean by Dr Golden Lopez. Self education is important in the journey for weight management. Patient was offered diagnostic testing. We want to measure visceral adiposity, advanced body composition, adverse lipids, fatty acid balance, risk for heart disease and atherosclerosis, markers of inflammation and genetic susceptibility. Patient was counseled on weight management and was advised to lose weight using A. Meal Replacement Products Patient was educated on the replacement products called optifast. This is a good way of taking fixed amount of calories. It has been shown in studies to be ineffective weight management tool. This however has to be coupled with lifestyle intervention as well as laboratory data and EKG monitoring. It is impossible to know how a person will tolerate complete meal replacement. The side effects of meal replacement and weight loss could include syncopal attacks, dizziness, gallstones, potential cholecystectomy, possible heart attack and even . The benefits of meal replacement would be potential weight loss but no guarantees can be made. Meal replacement products are not covered by insurance. Once the patient has bought these products we cannot return them B. Lifestyle management which includes several strategies as below 1. Eat a low carbohydrate good fat good protein diet. Eliminate refined carbohydrates from the diet. Continue blood sugar and sugared beverages. Eat local organic when possible. Cook your own meals. Read food labels. None about healthy snacks. Portion control and food with low glycemic index 2. Exercise regularly. Try to get at least 6000 steps a day. Use a predominant to track activity level. Consider using apps like Tongal, [employer] InstrumentsfitMicroTransponderpal, lose it, stick as needed for self-monitoring and weight management. Consider group exercises. Consider hiring a personal development mentor. Regular exercise is kilgore to sustainable health and prevents as a buffer against weight regain 3. Sleep is most important for healing. Tried to sleep at least 8 hours a night. A good quality sleep needs a sleep ritual with ideal room temperature of around 68. It might help to take a shower and have no electronics in the room and sleep in a very dark room without artificial light. Start her sleep routine and get up early in the morning and go to bed on time 4. Make a social connection. Surround yourself with positive people with positive energy. Connect with friends and family. 5. Get into the habit of meditating and mindfulness while doing everything. 6. Go outside and connect with nature. C. Prescription medications Patient was educated on the use of prescription medications for medical weight loss. This is a growing list and includes phentermine, Topamax,Qsymia, contrave, belviq and saxenda. All prescription medications could have side effects including but not limited to kidney stones, seizure disorder cardiac arrhythmias heart attack pancreatitis etc. etc.. Patient was encouraged to read the prescription insert and have coaching with their pharmacist and make an informed decision about taking medication and know that these medications are being prescribed with good intentions and we do not know how a patient would react to her medication. Sudden medications are FDA approved for weight loss and there is also off label use depending on patient's inability to afford medications in an attempt to lose weight D. Behavioral counseling was done to establish a relationship between food and an mood. Patient was provided information about local counseling and psychiatry and Dr Villeda at [facility]. We would like to cover regular topics and build on low glycemic eating exercise mindful eating, using yoga and meditation along with deep breathing and connecting with friends and family. E. MASS PAT reviewed, Patient's current medications were reviewed and opinion was given on medication that can cause weight gain and can be substituted F. Patient was assessed for risk with obesity including and not limiting to atherosclerosis heart disease stroke kidney disease, restrictive lung disease, irritable bowel syndrome and overall mortality. Risk of developing prediabetes diabetes and metabolic syndrome was discussed G. Therapeutic plan: We have decided to make therapeutic plan which would include choosing wisely on calories restricting portion getting active, tracking weight, getting good quality sleep and working on time management H. Patient will follow up in (4) weeks for weight management Of note, some information is being carried forward from prior records for informational purposes only and is being cited so that efficiency, safety and quality of the patient's care is not compromised This note was prepared using voice recognition software and direct typing Please excuse inadvertent laborer cement gun placing or typing errors, or uncorrected word substitutions Although every attempt has been made by the provider to proofread this document, occasional misspellings and typographical errors may still be present Due to the previous pandemic, and the use of personal protective equipment (PPE) This may decrease voice recognition accuracy Inadvertent laborer cement gun placing errors may occur 07/26/2024 Overweight (BMI 25.0-29.9) (ICD-10 - E66.3) #Weight Management 07/26/2024 scheduled upcoming spinal surgery 08/31/2024, dc stopping GLP 10-14 days prior Discussed protein and muscle and's strength and resistance training *Follow-up on labs in the fall with her PCP We stressed the importance of adequate protein intake at the level of 75 g a day Total time spent today was 30 minutes of which greater than 50% was spent on coordinating and counseling Patient has been found to be overweight with a BMI of (27). We are a board certified obesity and weight management practice Patient has trialed behavioral modification, dietary restrictions and exercise for a minimum of 6 months Patient counseled regarding effects of GLP/GIP-1 agonists, and other FDA approved wgt loss meds with regards to a multifactorial approach of weight loss as mentioned above and not solely appetite suppression. We have discussed the mechanism of GLP-1's/GIP I think this would be fantastic option for her given her metabolic workup and body composition We have discussed the risks and benefits and side effects including/and not limited to Sarcopenia, intestinal obstruction, constipation, nausea, lethargy, headache There is no history of medullary thyroid cancer or multiple endocrine neoplasia There is also no history of cardiovascular disease, hypertension, palpitations, or arrhythmias In the setting of potential stimulant/amphetam ine use such as phentermine Patient was reassured and welcomed to the practice. We discussed that we stress a hollistic medical approach with emphasis on lifestyle modification. Patient was informed that a healthy lifestyle with exercise and good eating habits can help reduce his risk of medical complications. He is explained that obesity increases his risk of diabetes, cardiovascular disease, or organ damage. We spent a lot of time discussing the relationship between food, exercise, sleep, mental health and obesity. Patient was counseled on the importance EATING local, organic food when possible. Patient was educated on clean 15 and dirty dozen. I provided information about reading books called The Food Rules by Krunal Newberry and Eat Fat Get Lean by Dr Golden Lopez. Self education is important in the journey for weight management. Patient was offered diagnostic testing. We want to measure visceral adiposity, advanced body composition, adverse lipids, fatty acid balance, risk for heart disease and atherosclerosis, markers of inflammation and genetic susceptibility. Patient was counseled on weight management and was advised to lose weight using A. Meal Replacement Products Patient was educated on the replacement products called optifast. This is a good way of taking fixed amount of calories. It has been shown in studies to be ineffective weight management tool. This however has to be coupled with lifestyle intervention as well as laboratory data and EKG monitoring. It is impossible to know how a person will tolerate complete meal replacement. The side effects of meal replacement and weight loss could include syncopal attacks, dizziness, gallstones, potential cholecystectomy, possible heart attack and even . The benefits of meal replacement would be potential weight loss but no guarantees can be made. Meal replacement products are not covered by insurance. Once the patient has bought these products we cannot return them B. Lifestyle management which includes several strategies as below 1. Eat a low carbohydrate good fat good protein diet. Eliminate refined carbohydrates from the diet. Continue blood sugar and sugared beverages. Eat local organic when possible. Cook your own meals. Read food labels. None about healthy snacks. Portion control and food with low glycemic index 2. Exercise regularly. Try to get at least 6000 steps a day. Use a predominant to track activity level. Consider using apps like [employer], [employer], lose it, stick as needed for self-monitoring and weight management. Consider group exercises. Consider hiring a personal development mentor. Regular exercise is [place] to sustainable health and prevents as a buffer against weight regain 3. Sleep is most important for healing. Tried to sleep at least 8 hours a night. A good quality sleep needs a sleep ritual with ideal room temperature of around 68. It might help to take a shower and have no electronics in the room and sleep in a very dark room without artificial light. Start her sleep routine and get up early in the morning and go to bed on time 4. Make a social connection. Surround yourself with positive people with positive energy. Connect with friends and family. 5. Get into the habit of meditating and mindfulness while doing everything. 6. Go outside and connect with nature. C. Prescription medications Patient was educated on the use of prescription medications for medical weight loss. This is a growing list and includes phentermine, Topamax,Qsymia, contrave, belviq and saxenda. All prescription medications could have side effects including but not limited to kidney stones, seizure disorder cardiac arrhythmias heart attack pancreatitis etc. etc.. Patient was encouraged to read the prescription insert and have coaching with their pharmacist and make an informed decision about taking medication and know that these medications are being prescribed with good intentions and we do not know how a patient would react to her medication. Sudden medications are FDA approved for weight loss and there is also off label use depending on patient's inability to afford medications in an attempt to lose weight D. Behavioral counseling was done to establish a relationship between food and an mood. Patient was provided information about local counseling and psychiatry and Dr Villeda at [facility]. We would like to cover regular topics and build on low glycemic eating exercise mindful eating, using yoga and meditation along with deep breathing and connecting with friends and family. E. MASS PAT reviewed, Patient's current medications were reviewed and opinion was given on medication that can cause weight gain and can be substituted F. Patient was assessed for risk with obesity including and not limiting to atherosclerosis heart disease stroke kidney disease, restrictive lung disease, irritable bowel syndrome and overall mortality. Risk of developing prediabetes diabetes and metabolic syndrome was discussed G. Therapeutic plan: We have decided to make therapeutic plan which would include choosing wisely on calories restricting portion getting active, tracking weight, getting good quality sleep and working on time management H. Patient will follow up in (4) weeks for weight management Of note, some information is being carried forward from prior records for informational purposes only and is being cited so that efficiency, safety and quality of the patient's care is not compromised This note was prepared using voice recognition software and direct typing Please excuse inadvertent laborer cement gun placing or typing errors, or uncorrected word substitutions Although every attempt has been made by the provider to proofread this document, occasional misspellings and typographical errors may still be present Due to the previous pandemic, and the use of personal protective equipment (PPE) This may decrease voice recognition accuracy Inadvertent laborer cement gun placing errors may occur 09/27/2024 Dietary counseling and [...] software and direct typing Please excuse inadvertent laborer cement gun placing or typing errors, or uncorrected word substitutions Although every attempt has been made by the provider to proofread this document, occasional misspellings and typographical errors may still be present Due to the previous pandemic, and the use of personal protective equipment (PPE) This may decrease voice recognition accuracy Inadvertent laborer cement gun placing errors may occur 11/16/2024 Overweight (BMI 25.0-29.9) [...] software and direct typing Please excuse inadvertent laborer cement gun placing or typing errors, or uncorrected word substitutions Although every attempt has been made by the provider to proofread this document, occasional misspellings and typographical errors may still be present Due to the previous pandemic, and the use of personal protective equipment (PPE) This may decrease voice recognition accuracy Inadvertent laborer cement gun placing errors may occur 09/27/2024 Overweight (BMI 25.0-29.9) [...] software and direct typing Please excuse inadvertent laborer cement gun placing or typing errors, or uncorrected word substitutions Although every attempt has been made by the provider to proofread this document, occasional misspellings and typographical errors may still be present Due to the previous pandemic, and the use of personal protective equipment (PPE) This may decrease voice recognition accuracy Inadvertent laborer cement gun placing errors may occur 11/16/2024 Dietary counseling and [...] software and direct typing Please excuse inadvertent laborer cement gun placing or typing errors, or uncorrected word substitutions Although every attempt has been made by the provider to proofread this document, occasional misspellings and typographical errors may still be present Due to the previous pandemic, and the use of personal protective equipment (PPE) This may decrease voice recognition accuracy Inadvertent laborer cement gun placing errors may occur 03/29/2024 Dietary counseling and surveillance (ICD-10 - Z71.3) #Weight Management 03/29/2024 Check on status of appeal for [facility] Cat[facility] We stressed the importance of adequate protein intake at the level of 75 g a day Strength and resistance training as well as muscle building activities given decreasing muscle composition Pt is on Wegovy 2.4 mg weekly injectable. She is closing in on her target goal weight and we discussed maintenance dosing moving forward f/u in 4-6 weeks for further weight management and SECA scan Total time spent today was 30 minutes [...] mentioned above and not solely appetite suppression. We have discussed the mechanism of GLP-1's/GIP I think this would be fantastic option for her given her metabolic workup and body composition We have discussed the risks and benefits and side effects including/and not limited to Sarcopenia, intestinal obstruction, constipation, nausea, lethargy, headache There is no history of medullary thyroid cancer or multiple endocrine neoplasia There is also no history of cardiovascular disease, hypertension, palpitations, or arrhythmias In the setting of potential stimulant/amphetam ine use such as phentermine Patient was reassured and welcomed to the practice. We discussed that we stress a hollistic medical approach with emphasis on lifestyle modification. Patient was informed that a healthy lifestyle with exercise and good eating habits can help reduce his risk of medical complications. He is explained that obesity increases his risk of diabetes, cardiovascular disease, or organ damage. We spent a lot of time discussing the relationship between food, exercise, sleep, mental health and obesity. Patient was counseled on the importance EATING local, organic food when possible. Patient was educated on clean 15 and dirty dozen. I provided information about reading books called The Food Rules by Krunal Newberry and Eat Fat Get Lean by Dr Golden Lopez. Self education is important in the journey for weight management. Patient was offered diagnostic testing. We want to measure visceral adiposity, advanced body composition, adverse lipids, fatty acid balance, risk for heart disease and atherosclerosis, markers of inflammation and genetic susceptibility. Patient was counseled on weight management and was advised to lose weight using A. Meal Replacement Products Patient was educated on the replacement products called optifast. This is a good way of taking fixed amount of calories. It has been shown in studies to be ineffective weight management tool. This however has to be coupled with lifestyle intervention as well as laboratory data and EKG monitoring. It is impossible to know how a person will tolerate complete meal replacement. The side effects of meal replacement and weight loss could include syncopal attacks, dizziness, gallstones, potential cholecystectomy, possible heart attack and even . The benefits of meal replacement would be potential weight loss but no guarantees can be made. Meal replacement products are not covered by insurance. Once the patient has bought these products we cannot return them B. Lifestyle management which includes several strategies as below 1. Eat a low carbohydrate good fat good protein diet. Eliminate refined carbohydrates from the diet. Continue blood sugar and sugared beverages. Eat local organic when possible. Cook your own meals. Read food labels. None about healthy snacks. Portion control and food with low glycemic index 2. Exercise regularly. Try to get at least 6000 steps a day. Use a predominant to track activity level. Consider using apps like [employer], [employer], lose it, stick as needed for self-monitoring and weight management. Consider group exercises. Consider hiring a personal development mentor. Regular exercise is [place] to sustainable health and prevents as a buffer against weight regain 3. Sleep is most important for healing. Tried to sleep at least 8 hours a night. A good quality sleep needs a sleep ritual with ideal room temperature of around 68. It might help to take a shower and have no electronics in the room and sleep in a very dark room without artificial light. Start her sleep routine and get up early in the morning and go to bed on time 4. Make a social connection. Surround yourself with positive people with positive energy. Connect with friends and family. 5. Get into the habit of meditating and mindfulness while doing everything. 6. Go outside and connect with nature. C. Prescription medications Patient was educated on the use of prescription medications for medical weight loss. This is a growing list and includes phentermine, Topamax,Qsymia, contrave, belviq and saxenda. All prescription medications could have side effects including but not limited to kidney stones, seizure disorder cardiac arrhythmias heart attack pancreatitis etc. etc.. Patient was encouraged to read the prescription insert and have coaching with their pharmacist and make an informed decision about taking medication and know that these medications are being prescribed with good intentions and we do not know how a patient would react to her medication. Sudden medications are FDA approved for weight loss and there is also off label use depending on patient's inability to afford medications in an attempt to lose weight D. Behavioral counseling was done to establish a relationship between food and an mood. Patient was provided information about local counseling and psychiatry and Dr Vlileda at [facility]. We would like to cover regular topics and build on low glycemic eating exercise mindful eating, using yoga and meditation along with deep breathing and connecting with friends and family. E. MASS PAT reviewed, Patient's current medications were reviewed and opinion was given on medication that can cause weight gain and can be substituted F. Patient was assessed for risk with obesity including and not limiting to atherosclerosis heart disease stroke kidney disease, restrictive lung disease, irritable bowel syndrome and overall mortality. Risk of developing prediabetes diabetes and metabolic syndrome was discussed G. Therapeutic plan: We have decided to make therapeutic plan which would include choosing wisely on calories restricting portion getting active, tracking weight, getting good quality sleep and working on time management H. Patient will follow up in (4) weeks for weight management Of note, some information is being carried forward from prior records for informational purposes only and is being cited so that efficiency, safety and quality of the patient's care is not compromised This note was prepared using voice recognition software and direct typing Please excuse inadvertent laborer cement gun placing or typing errors, or uncorrected word substitutions Although every attempt has been made by the provider to proofread this document, occasional misspellings and typographical errors may still be present Due to the previous pandemic, and the use of personal protective equipment (PPE) This may decrease voice recognition accuracy Inadvertent laborer cement gun placing errors may occur 06/01/2024 Dietary counseling and surveillance (ICD-10 - Z71.3) #Weight Management 06/01/2024 Will pull back to every other week maintenance dosing Discussed protein and muscle and's strength and resistance training Follow-up on labs in the fall with her PCP We stressed the importance of adequate protein intake at the level of 75 g a day Total time spent today was 30 minutes of which greater than 50% was spent on coordinating and counseling Patient has been found to be overweight with a BMI of (27). We are a board certified obesity and weight management practice Patient has trialed behavioral modification, dietary restrictions and exercise for a minimum of 6 months Patient counseled regarding effects of GLP/GIP-1 agonists, and other FDA approved wgt loss meds with regards to a multifactorial approach of weight loss as mentioned above and not solely appetite suppression. We have discussed the mechanism of GLP-1's/GIP I think this would be fantastic option for her given her metabolic workup and body composition We have discussed the risks and benefits and side effects including/and not limited to Sarcopenia, intestinal obstruction, constipation, nausea, lethargy, headache There is no history of medullary thyroid cancer or multiple endocrine neoplasia There is also no history of cardiovascular disease, hypertension, palpitations, or arrhythmias In the setting of potential stimulant/amphetam ine use such as phentermine Patient was reassured and welcomed to the practice. We discussed that we stress a hollistic medical approach with emphasis on lifestyle modification. Patient was informed that a healthy lifestyle with exercise and good eating habits can help reduce his risk of medical complications. He is explained that obesity increases his risk of diabetes, cardiovascular disease, or organ damage. We spent a lot of time discussing the relationship between food, exercise, sleep, mental health and obesity. Patient was counseled on the importance EATING local, organic food when possible. Patient was educated on clean 15 and dirty dozen. I provided information about reading books called The Food Rules by Krunal Newberry and Eat Fat Get Lean by Dr Golden Lopez. Self education is important in the journey for weight management. Patient was offered diagnostic testing. We want to measure visceral adiposity, advanced body composition, adverse lipids, fatty acid balance, risk for heart disease and atherosclerosis, markers of inflammation and genetic susceptibility. Patient was counseled on weight management and was advised to lose weight using A. Meal Replacement Products Patient was educated on the replacement products called optifast. This is a good way of taking fixed amount of calories. It has been shown in studies to be ineffective weight management tool. This however has to be coupled with lifestyle intervention as well as laboratory data and EKG monitoring. It is impossible to know how a person will tolerate complete meal replacement. The side effects of meal replacement and weight loss could include syncopal attacks, dizziness, gallstones, potential cholecystectomy, possible heart attack and even . The benefits of meal replacement would be potential weight loss but no guarantees can be made. Meal replacement products are not covered by insurance. Once the patient has bought these products we cannot return them B. Lifestyle management which includes several strategies as below 1. Eat a low carbohydrate good fat good protein diet. Eliminate refined carbohydrates from the diet. Continue blood sugar and sugared beverages. Eat local organic when possible. Cook your own meals. Read food labels. None about healthy snacks. Portion control and food with low glycemic index 2. Exercise regularly. Try to get at least 6000 steps a day. Use a predominant to track activity level. Consider using apps like [employer], [employer], lose it, stick as needed for self-monitoring and weight management. Consider group exercises. Consider hiring a personal development mentor. Regular exercise is [place] to sustainable health and prevents as a buffer against weight regain 3. Sleep is most important for healing. Tried to sleep at least 8 hours a night. A good quality sleep needs a sleep ritual with ideal room temperature of around 68. It might help to take a shower and have no electronics in the room and sleep in a very dark room without artificial light. Start her sleep routine and get up early in the morning and go to bed on time 4. Make a social connection. Surround yourself with positive people with positive energy. Connect with friends and family. 5. Get into the habit of meditating and mindfulness while doing everything. 6. Go outside and connect with nature. C. Prescription medications Patient was educated on the use of prescription medications for medical weight loss. This is a growing list and includes phentermine, Topamax,Qsymia, contrave, belviq and saxenda. All prescription medications could have side effects including but not limited to kidney stones, seizure disorder cardiac arrhythmias heart attack pancreatitis etc. etc.. Patient was encouraged to read the prescription insert and have coaching with their pharmacist and make an informed decision about taking medication and know that these medications are being prescribed with good intentions and we do not know how a patient would react to her medication. Sudden medications are FDA approved for weight loss and there is also off label use depending on patient's inability to afford medications in an attempt to lose weight D. Behavioral counseling was done to establish a relationship between food and an mood. Patient was provided information about local counseling and psychiatry and Dr Villeda at [facility]. We would like to cover regular topics and build on low glycemic eating exercise mindful eating, using yoga and meditation along with deep breathing and connecting with friends and family. E. MASS PAT reviewed, Patient's current medications were reviewed and opinion was given on medication that can cause weight gain and can be substituted F. Patient was assessed for risk with obesity including and not limiting to atherosclerosis heart disease stroke kidney disease, restrictive lung disease, irritable bowel syndrome and overall mortality. Risk of developing prediabetes diabetes and metabolic syndrome was discussed G. Therapeutic plan: We have decided to make therapeutic plan which would include choosing wisely on calories restricting portion getting active, tracking weight, getting good quality sleep and working on time management H. Patient will follow up in (4) weeks for weight management Of note, some information is being carried forward from prior records for informational purposes only and is being cited so that efficiency, safety and quality of the patient's care is not compromised This note was prepared using voice recognition software and direct typing Please excuse inadvertent laborer cement gun placing or typing errors, or uncorrected word substitutions Although every attempt has been made by the provider to proofread this document, occasional misspellings and typographical errors may still be present Due to the previous pandemic, and the use of personal protective equipment (PPE) This may decrease voice recognition accuracy Inadvertent laborer cement gun placing errors may occur 02/05/2024 BMI 28.0-28.9,adult (ICD-10 - Z68.28) #Weight Management 02/05/2024 We stressed the importance of adequate protein intake at the level of 75 g a day Strength and resistance training as well as muscle building activities given decreasing muscle composition Pt is on Wegovy 2.4 mg weekly injectable. We have congratulated her on leaving the obesity world She is closing in on her target goal weight and we discussed maintenance dosing moving forward f/u in 4-6 weeks for further weight management and SECA scan Total time spent today was 30 minutes [...] mentioned above and not solely appetite suppression. We have discussed the mechanism of GLP-1's/GIP I think this would be fantastic option for her given her metabolic workup and body composition We have discussed the risks and benefits and side effects including/and not limited to Sarcopenia, intestinal obstruction, constipation, nausea, lethargy, headache There is no history of medullary thyroid cancer or multiple endocrine neoplasia There is also no history of cardiovascular disease, hypertension, palpitations, or arrhythmias In the setting of potential stimulant/amphetam ine use such as phentermine Patient was reassured and welcomed to the practice. We discussed that we stress a hollistic medical approach with emphasis on lifestyle modification. Patient was informed that a healthy lifestyle with exercise and good eating habits can help reduce his risk of medical complications. He is explained that obesity increases his risk of diabetes, cardiovascular disease, or organ damage. We spent a lot of time discussing the relationship between food, exercise, sleep, mental health and obesity. Patient was counseled on the importance EATING local, organic food when possible. Patient was educated on clean 15 and dirty dozen. I provided information about reading books called The Food Rules by Krunal Newberry and Eat Fat Get Lean by Dr Golden Lopez. Self education is important in the journey for weight management. Patient was offered diagnostic testing. We want to measure visceral adiposity, advanced body composition, adverse lipids, fatty acid balance, risk for heart disease and atherosclerosis, markers of inflammation and genetic susceptibility. Patient was counseled on weight management and was advised to lose weight using A. Meal Replacement Products Patient was educated on the replacement products called optifast. This is a good way of taking fixed amount of calories. It has been shown in studies to be ineffective weight management tool. This however has to be coupled with lifestyle intervention as well as laboratory data and EKG monitoring. It is impossible to know how a person will tolerate complete meal replacement. The side effects of meal replacement and weight loss could include syncopal attacks, dizziness, gallstones, potential cholecystectomy, possible heart attack and even . The benefits of meal replacement would be potential weight loss but no guarantees can be made. Meal replacement products are not covered by insurance. Once the patient has bought these products we cannot return them B. Lifestyle management which includes several strategies as below 1. Eat a low carbohydrate good fat good protein diet. Eliminate refined carbohydrates from the diet. Continue blood sugar and sugared beverages. Eat local organic when possible. Cook your own meals. Read food labels. None about healthy snacks. Portion control and food with low glycemic index 2. Exercise regularly. Try to get at least 6000 steps a day. Use a predominant to track activity level. Consider using apps like Tongal, [employer], lose it, stick as needed for self-monitoring and weight management. Consider group exercises. Consider hiring a personal development mentor. Regular exercise is kilgore to sustainable health and prevents as a buffer against weight regain 3. Sleep is most important for healing. Tried to sleep at least 8 hours a night. A good quality sleep needs a sleep ritual with ideal room temperature of around 68. It might help to take a shower and have no electronics in the room and sleep in a very dark room without artificial light. Start her sleep routine and get up early in the morning and go to bed on time 4. Make a social connection. Surround yourself with positive people with positive energy. Connect with friends and family. 5. Get into the habit of meditating and mindfulness while doing everything. 6. Go outside and connect with nature. C. Prescription medications Patient was educated on the use of prescription medications for medical weight loss. This is a growing list and includes phentermine, Topamax,Qsymia, contrave, belviq and saxenda. All prescription medications could have side effects including but not limited to kidney stones, seizure disorder cardiac arrhythmias heart attack pancreatitis etc. etc.. Patient was encouraged to read the prescription insert and have coaching with their pharmacist and make an informed decision about taking medication and know that these medications are being prescribed with good intentions and we do not know how a patient would react to her medication. Sudden medications are FDA approved for weight loss and there is also off label use depending on patient's inability to afford medications in an attempt to lose weight D. Behavioral counseling was done to establish a relationship between food and an mood. Patient was provided information about local counseling and psychiatry and Dr Villeda at [facility]. We would like to cover regular topics and build on low glycemic eating exercise mindful eating, using yoga and meditation along with deep breathing and connecting with friends and family. E. MASS PAT reviewed, Patient's current medications were reviewed and opinion was given on medication that can cause weight gain and can be substituted F. Patient was assessed for risk with obesity including and not limiting to atherosclerosis heart disease stroke kidney disease, restrictive lung disease, irritable bowel syndrome and overall mortality. Risk of developing prediabetes diabetes and metabolic syndrome was discussed G. Therapeutic plan: We have decided to make therapeutic plan which would include choosing wisely on calories restricting portion getting active, tracking weight, getting good quality sleep and working on time management H. Patient will follow up in (4) weeks for weight management Of note, some information is being carried forward from prior records for informational purposes only and is being cited so that efficiency, safety and quality of the patient's care is not compromised This note was prepared using voice recognition software and direct typing Please excuse inadvertent laborer cement gun placing or typing errors, or uncorrected word substitutions Although every attempt has been made by the provider to proofread this document, occasional misspellings and typographical errors may still be present Due to the previous pandemic, and the use of personal protective equipment (PPE) This may decrease voice recognition accuracy Inadvertent laborer cement gun placing errors may occur 07/26/2024 Dietary counseling and surveillance (ICD-10 - Z71.3) #Weight Management 07/26/2024 scheduled upcoming spinal surgery 08/31/2024, dc stopping GLP 10-14 days prior Discussed protein and muscle and's strength and resistance training *Follow-up on labs in the fall with her PCP We stressed the importance of adequate protein intake at the level of 75 g a day Total time spent today was 30 minutes of which greater than 50% was spent on coordinating and counseling Patient has been found to be overweight with a BMI of (27). We are a board certified obesity and weight management practice Patient has trialed behavioral modification, dietary restrictions and exercise for a minimum of 6 months Patient counseled regarding effects of GLP/GIP-1 agonists, and other FDA approved wgt loss meds with regards to a multifactorial approach of weight loss as mentioned above and not solely appetite suppression. We have discussed the mechanism of GLP-1's/GIP I think this would be fantastic option for her given her metabolic workup and body composition We have discussed the risks and benefits and side effects including/and not limited to Sarcopenia, intestinal obstruction, constipation, nausea, lethargy, headache There is no history of medullary thyroid cancer or multiple endocrine neoplasia There is also no history of cardiovascular disease, hypertension, palpitations, or arrhythmias In the setting of potential stimulant/amphetam ine use such as phentermine Patient was reassured and welcomed to the practice. We discussed that we stress a hollistic medical approach with emphasis on lifestyle modification. Patient was informed that a healthy lifestyle with exercise and good eating habits can help reduce his risk of medical complications. He is explained that obesity increases his risk of diabetes, cardiovascular disease, or organ damage. We spent a lot of time discussing the relationship between food, exercise, sleep, mental health and obesity. Patient was counseled on the importance EATING local, organic food when possible. Patient was educated on clean 15 and dirty dozen. I provided information about reading books called The Food Rules by Krunal Newberry and Eat Fat Get Lean by Dr Golden Lopez. Self education is important in the journey for weight management. Patient was offered diagnostic testing. We want to measure visceral adiposity, advanced body composition, adverse lipids, fatty acid balance, risk for heart disease and atherosclerosis, markers of inflammation and genetic susceptibility. Patient was counseled on weight management and was advised to lose weight using A. Meal Replacement Products Patient was educated on the replacement products called optifast. This is a good way of taking fixed amount of calories. It has been shown in studies to be ineffective weight management tool. This however has to be coupled with lifestyle intervention as well as laboratory data and EKG monitoring. It is impossible to know how a person will tolerate complete meal replacement. The side effects of meal replacement and weight loss could include syncopal attacks, dizziness, gallstones, potential cholecystectomy, possible heart attack and even . The benefits of meal replacement would be potential weight loss but no guarantees can be made. Meal replacement products are not covered by insurance. Once the patient has bought these products we cannot return them B. Lifestyle management which includes several strategies as below 1. Eat a low carbohydrate good fat good protein diet. Eliminate refined carbohydrates from the diet. Continue blood sugar and sugared beverages. Eat local organic when possible. Cook your own meals. Read food labels. None about healthy snacks. Portion control and food with low glycemic index 2. Exercise regularly. Try to get at least 6000 steps a day. Use a predominant to track activity level. Consider using apps like Tongal, [employer], lose it, stick as needed for self-monitoring and weight management. Consider group exercises. Consider hiring a personal development mentor. Regular exercise is kilgore to sustainable health and prevents as a buffer against weight regain 3. Sleep is most important for healing. Tried to sleep at least 8 hours a night. A good quality sleep needs a sleep ritual with ideal room temperature of around 68. It might help to take a shower and have no electronics in the room and sleep in a very dark room without artificial light. Start her sleep routine and get up early in the morning and go to bed on time 4. Make a social connection. Surround yourself with positive people with positive energy. Connect with friends and family. 5. Get into the habit of meditating and mindfulness while doing everything. 6. Go outside and connect with nature. C. Prescription medications Patient was educated on the use of prescription medications for medical weight loss. This is a growing list and includes phentermine, Topamax,Qsymia, contrave, belviq and saxenda. All prescription medications could have side effects including but not limited to kidney stones, seizure disorder cardiac arrhythmias heart attack pancreatitis etc. etc.. Patient was encouraged to read the prescription insert and have coaching with their pharmacist and make an informed decision about taking medication and know that these medications are being prescribed with good intentions and we do not know how a patient would react to her medication. Sudden medications are FDA approved for weight loss and there is also off label use depending on patient's inability to afford medications in an attempt to lose weight D. Behavioral counseling was done to establish a relationship between food and an mood. Patient was provided information about local counseling and psychiatry and Dr Villeda at [facility]. We would like to cover regular topics and build on low glycemic eating exercise mindful eating, using yoga and meditation along with deep breathing and connecting with friends and family. E. MASS PAT reviewed, Patient's current medications were reviewed and opinion was given on medication that can cause weight gain and can be substituted F. Patient was assessed for risk with obesity including and not limiting to atherosclerosis heart disease stroke kidney disease, restrictive lung disease, irritable bowel syndrome and overall mortality. Risk of developing prediabetes diabetes and metabolic syndrome was discussed G. Therapeutic plan: We have decided to make therapeutic plan which would include choosing wisely on calories restricting portion getting active, tracking weight, getting good quality sleep and working on time management H. Patient will follow up in (4) weeks for weight management Of note, some information is being carried forward from prior records for informational purposes only and is being cited so that efficiency, safety and quality of the patient's care is not compromised This note was prepared using voice recognition software and direct typing Please excuse inadvertent laborer cement gun placing or typing errors, or uncorrected word substitutions Although every attempt has been made by the provider to proofread this document, occasional misspellings and typographical errors may still be present Due to the previous pandemic, and the use of personal protective equipment (PPE) This may decrease voice recognition accuracy Inadvertent laborer cement gun placing errors may occur 11/16/2024 Hypothyroidism, unspecified type [...] software and direct typing Please excuse inadvertent laborer cement gun placing or typing errors, or uncorrected word substitutions Although every attempt has been made by the provider to proofread this document, occasional misspellings and typographical errors may still be present Due to the previous pandemic, and the use of personal protective equipment (PPE) This may decrease voice recognition accuracy Inadvertent laborer cement gun placing errors may occur 11/16/2024 Dyslipidemia (ICD-10 - [...] software and direct typing Please excuse inadvertent laborer cement gun placing or typing errors, or uncorrected word substitutions Although every attempt has been made by the provider to proofread this document, occasional misspellings and typographical errors may still be present Due to the previous pandemic, and the use of personal protective equipment (PPE) This may decrease voice recognition accuracy Inadvertent laborer cement gun placing errors may occur PLAN OF TREATMENT Pending Test Test Name Order Date LIPID PANEL, STANDARD 09/27/2024 LIPID PANEL, STANDARD 11/16/2024 COMPREHENSIVE METABOLIC PANEL 09/27/2024 CBC (INCLUDES DIFF/PLT) 09/27/2024 URINALYSIS, COMPLETE 09/27/2024 HEMOGLOBIN A1c 09/27/2024 T4 (THYROXINE), TOTAL 11/16/2024 TSH 11/16/2024 TSH 09/27/2024 VITAMIN D,25-OH,TOTAL,IA 09/27/2024 Next Appt Details Provider Name:ZARIA GALLOWAY, 12/27/2024 01:30:00 PM, [address] [facility], [place] [address], [place], [id number], Provider Name:ZARIA GALLOWAY 12/29/2024 01:00:00 PM, [address] [facility], [facility] [address], [place], [id number], Insurance Providers Payer Name Payer Address Payer Phone Subscriber Number Group Number Insured Name Patient Relationship to Insured Coverage Start Date Coverage End Date [employer] [address] [address] [place] [address] [id number] HEATHER STOVALL Self - patient is the insured MEDICATIONS ADMINISTERED Medication Instructions Date of Administration Dosage Notes MICC B12 INJECTION 09/05/2023 1 mL MEDICAL (GENERAL) HISTORY Medical History History ICD Code headache gallbladder disease Surgical History Surgery Date(Month/Year) gastric sleeve gallbladder removal lumbar fusion
== END 2024-12-24 15:48 | disposition home or self-care (01) ==
PROVIDERS: PCP Internal Medicine; Visit Provider Physician Assistant
DX: M41.20 Other idiopathic scoliosis, site unspecified (principal)
CPT/HCPCS: 99213

== ENCOUNTER → 2024-12-24 14:48 | Outpatient (BNVA) | payer OTHER, SELFPAY | PROVIDERS: PCP Internal Medicine; Visit Provider Neurological Surgery ==

== ENCOUNTER 2025-02-15 08:59 | Outpatient (BNV) | payer OTHER, SELFPAY | END 2025-02-16 08:30 | PROVIDERS: Admitting Provider Neurological Surgery; Visit Provider Radiology Diagnostic Radiology | DX: M41.86 Other forms of scoliosis, lumbar region (principal) | CPT/HCPCS: 72100 ==

== ENCOUNTER 2025-02-15 08:59 | Inpatient (IN) | payer OTHER, SELFPAY ==
[2025-02-02 11:55] VITALS: BP 123/72; PULSE 84; RESP 16; O2SAT 97; BMI 29.2
--- NOTE | 2025-02-02 12:15 | P.CONAN_ITS ---
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 Limited physical activity d/t pain Anesthesia Pre-Procedure Meds Is the patient on any of the following meds?: GLP1/DPP4 PMFSH Active Problems Active Problems: All Active Problems Scoliosis (and kyphoscoliosis), idiopathic (Acute) Past Medical History Medical History Wears contact lenses Kyphoscoliosis HLD (hyperlipidemia) Family History Family history of problems with anesthesia: No Surgical History Surgical History Hx of colonoscopy History of Hx laparoscopic cholecystectomy Hx of bariatric surgery (~2015) Hx of spinal surgery (2007) History of Problems with Anesthesia: No Social History Social History Are you a primary career development coordinator/teacher to a significant other at home: No Do you presently have visiting nurse or other home services: No Patient Tobacco Use Status: Never used Tobacco Use of substances other than those prescribed or required for medical reasons: No Have you been hit, kicked, punched, or otherwise hurt by someone within the past year? If so, by whom?: No Are you DNR?: No Advance Directives: No Advance Directives Information Provided: Yes Advance Directives on File: No Patient : No FDLMP: 2020 Poor oral hygiene: No Meds Allergies Allergy/AdvReac Type Severity Reaction Status Date / Time codeine Allergy Vomiting Verified 02/15/25 09:16 Penicillins Allergy Swelling, Verified 02/15/25 09:16 vomitting Home Medications ?Medication ?Instructions ?Recorded ?Confirmed ?Last Taken ?Type atorvastatin 40 mg tablet 40 mg PO DAILY 02/02/25 02/15/25 Unknown History biotin 10,000 mcg capsule 10,000 mcg PO DAILY 02/02/25 02/15/25 Unknown History multivitamin 1 tab PO DAILY 02/02/25 02/15/25 Unknown History semaglutide (weight loss) 2.4 2.4 mg subcut .QWEEKONFRIDAY 02/02/25 02/15/25 Unknown History mg/0.75 mL subcutaneous pen injector (Catie) Exam Height,Weight and Vital Signs: Height 5 ft 3 in Weight 74.843 kg Last Vital Signs Pulse 84 02/02/25 11:55 Resp 16 02/02/25 11:55 BP 123/72 02/02/25 11:55 Pulse Ox 97 02/02/25 11:55 O2 Del Method Room Air 02/02/25 11:55 Pertinent Lab Results Pertinent Lab Results: Lab Results 02/02/25 02/02/25 Range/Units 12:42 12:46 WBC 4.6 L (4.8-10.8) X10*3/uL RBC 4.12 L (4.20-5.50) X10*6/uL Hgb 12.0 (12.0-16.0) g/dl Hct 35.9 L (37.0-47.0) % MCV 87.1 (80.0-98.0) fL MCH 29.1 (27.0-33.0) pg MCHC 33.4 (31.0-35.0) g/dl RDW 12.0 (11.0-16.0) % Plt Count 310 (160-400) X10*3/uL MPV 9.5 (9.4-12.3) fL Absolute Nucleated RBC 0.000 (0.0-0.012) X10*3/uL Nucleated RBC % (auto) 0.0 (0.0-0.2) /100WBC Sodium 141 (135-145) mmol/L Potassium 3.3 (3.3-5.1) mmol/L Chloride 108 (96-108) mmol/L Carbon Dioxide 23 (22-29) mmol/L Anion Gap 13 (12-20) BUN 11 (9-16) mg/dL Creatinine 0.61 (0.5-1.4) mg/dL Estim Creat Clear Calc 103.3 Estimated GFR > 60 Random Glucose 102 (60-115) mg/dL Calcium 9.4 (8.4-10.2) mg/dL Blood Type A Positive Antibody Screen NEGATIVE Airway Mallampati Class: I TM Dist: >3cm Neck ROM: Full Loose/Missing/Broken Teeth: Yes (Premolars extract) Heart: RRR Lungs: CTAB Assessment and Plan Assessment Anesthesia Assessment: Anesthesia Plan Discussed and PAT Visit Final Anesthetic Review Family History of Problems with Anesthesia: No History of Problems with Anesthesia: No Documented by User: Stephany Soto MD 02/15/25 11:01 PMFSH Past Medical History Medical History Wears contact lenses Kyphoscoliosis HLD (hyperlipidemia) Surgical History Surgical History Hx of colonoscopy History of Hx laparoscopic cholecystectomy Hx of bariatric surgery (~2015) Hx of spinal surgery (2007) Social History Social History Are you a primary career development coordinator/teacher to a significant other at home: No Do you presently have visiting nurse or other home services: No Patient Tobacco Use Status: Never used Tobacco Use of substances other than those prescribed or required for medical reasons: No Have you been hit, kicked, punched, or otherwise hurt by someone within the past year? If so, by whom?: No Are you DNR?: No Advance Directives: No Advance Directives Information Provided: Yes Advance Directives on File: No Patient : No FDLMP: 2020 Poor oral hygiene: No Meds Allergies Allergy/AdvReac Type Severity Reaction Status Date / Time codeine Allergy Vomiting Verified 02/15/25 09:16 Penicillins Allergy Swelling, Verified 02/15/25 09:16 vomitting Home Medications ?Medication ?Instructions ?Recorded ?Confirmed ?Last Taken ?Type atorvastatin 40 mg tablet 40 mg PO DAILY 02/02/25 02/15/25 Unknown History biotin 10,000 mcg capsule 10,000 mcg PO DAILY 02/02/25 02/15/25 Unknown History multivitamin 1 tab PO DAILY 02/02/25 02/15/25 Unknown History semaglutide (weight loss) 2.4 2.4 mg subcut .QWEEKONFRIDAY 02/02/25 02/15/25 Unknown History mg/0.75 mL subcutaneous pen injector (Wegovy) Assessment and Plan Final Anesthetic Review NPO: Yes ASA Class: II Final Preanesthetic Review: No Changes in Pt Med Stat, Meds/Allgs Chart Reviewed, Consent Obtained/Reviewed and Anes Risks/Benef Reviewed Patient Risk: Intermediate Procedure Risk: Intermediate Anesthetic Plan Anesthetic Plan: GA Disposition: Standard PACU
[2025-02-02 13:10] LABS: Hematocrit 35.9 % (37.0-47.0); Mean Corpuscular HGB Conc 33.4 g/dl (31.0-35.0); Mean Corpuscular Hemoglobin 29.1 pg (27.0-33.0); Mean Corpuscular Volume 87.1 fL (80.0-98.0); Mean Platelet Volume 9.5 fL (9.4-12.3); Platelet Count 310 X10*3/uL (160-400); Red Blood Count 4.12 X10*6/uL (4.20-5.50); White Blood Count 4.6 X10*3/uL (4.8-10.8)
[2025-02-02 13:45] LABS: Anion Gap 13 (12-20); Blood Urea Nitrogen 11 mg/dL (9-16); Calcium 9.4 mg/dL (8.4-10.2); Carbon Dioxide 23 mmol/L (22-29); Chloride 108 mmol/L (96-108); Creatinine Clr Calc Pharmacy 103.3; Estimated Glomerular Filt Rate > 60; Glucose Random 102 mg/dL (60-115); Potassium 3.3 mmol/L (3.3-5.1); Sodium 141 mmol/L (135-145)
[2025-02-15] VITALS (8 sets, daily range): BP systolic 120–154; BP diastolic 69–78; PULSE 72–110; RESP 12–16; TEMP 36–36.9; O2SAT 98–100; BMI 29.7; BMI 32.6
--- NOTE | ~2025-02-15 | XR_ITS ---
EXAMINATION: XR LUMBOSACRAL SPINE CLINICAL INFORMATION: s/p L2-5 OLIF yesterday COMPARISON: None available. TECHNIQUE: 2 views of the lumbar spine. FINDINGS: Transpedicular screws, bilaterally from L2 to L5. Proximal connecting the chest pedicle screws bilaterally. Intervertebral disc spacer placement from L2-3 to L5-S1. Mild endplate sclerosis and marginal osteophyte formation and decreased intervertebral disc height at L1-2. Marginal osteophyte formation and L4-5. Levoconvex curvature apex at L2. Vascular clips right upper hemiabdomen and epigastric region. XR/XR lumbar spine 2-3V IMPRESSION: Levoconvex scoliosis apex at L2. Status post posterior lumbar fusion and intervertebral disc spacer placement, L2 L5. Spondylosis, mild, L1-2. Electronically signed by: Jaleel Ramos MD 02/16/2025 08:59 AM EDT
--- NOTE | ~2025-02-15 | FL_ITS ---
EXAMINATION: XR FLUOROSCOPY WITH IMAGES CLINICAL INFORMATION: L3-L5 OLIF COMPARISON: None available. TECHNIQUE: Fluoroscopy provided to: Dr. Dash Fluoroscopy time: 6 minutes, 28 seconds DAP: 79.4 uGycm2 Images: 5 FINDINGS: 5 fluoroscopic spot images obtained during instrumented fusion of L3-L5 . Please refer to the full operative report for details. FL/FL guidance in OR IMPRESSION: Fluoroscopic guidance. Electronically signed by: Albert Quintanilla MD 02/16/2025 08:02 AM EDT
[2025-02-15] MEDS: Lactated Ringers 1,000 ML 100 ML IVCONT (09:19)
[2025-02-15] MEDS: methocarbamoL 750 MG TABLET PO (09:19)
[2025-02-15] MEDS: Gabapentin 300 MG CAPSULE PO (09:19)
[2025-02-15] MEDS: vancomycin HCL 1,000 MG in 0.9 % Sodium Chloride 250 ML 270 MG IV ×2 (09:29→20:36)
--- OUTSIDE RECORDS SUMMARY | 2025-02-15 09:41 | XMS_ITS ---
Author Organization [facility] Address [address] [place] [address] Care Team Providers Care Tar Distillation Supervisor Name Role Phone NILESH ZARIA Unavailable [phone] ALLERGIES Allergen (clinical drug ingredient) Drug/Non Drug Allergy documented on EMR Reaction Allergy Type Onset Date Status codeine Codeine Unknown Drug Allergy Active Penicillin Unknown Drug Allergy Active REASON FOR VISIT Pt here for weight management follow up, SECA done. MEDICATIONS Medication SIG (Take, Route, Frequency, Duration) Notes Start Date End Date Status Atorvastatin Calcium 40 MG 1 tablet Oral ly Once a day for 90 days Active Wegovy 2.4 MG/0.75ML 2.4mg Subcutaneous weekly for 30 days Active SOCIAL HISTORY Tobacco Use: Social History Observation Description Date Details (start date - stop date) Never Smoker NA - NA Sex Assigned At : Social History Observation Description Sex Assigned At Unknown Tobacco Use/Smoking Question Answer Notes Are you a nonsmoker VITAL SIGNS Blood pressure systolic 118 mm Hg 01/27/20 25 Blood pressure diastolic 76 mm Hg 025 Heart Rate 86 /min 01/26/2025 Height 63 in 01/26/2025 Weight 168 lbs 01/26/2025 BMI 29.76 kg/m2 01/26/2025 Oximetry 99 % 01/26/2025 Encounters Encounter Location Date Provider Diagnosis [facility] [address] [facility] [address] [facility] [address] [place] [address] 01/26/2025 ZARIA GALLOWAY BMI 29.0-29.9,adult Z68.29 ; Overweight (BMI 25.0-29.9) E66.3 ; Dietary counseling and surveillance Z71.3 ; Hypothyroidism, unspecified type E03.9 ; Dyslipidemia E78.5 ; Levoscoliosis of lumbar spine M41.86 and Post-menopausal Z78.0 ASSESSMENTS Encounter Date Diagnosis Assessment Notes Treatment Notes Treatment Clinical Notes Section Notes 01/26/2025 BMI 29.0-29.9,adult (ICD-10 - Z68.29) #Weight Management 01/26/2025 Labs reviewed Chemically euthyroid Continue statin, update lipid panel prior to next visit Discussed coronary calcium CT, strongly recommend given family history. Patient will consider following surgery. Continue Wegovy 2.4 Spinal surgery this month Discussed preoperative guidelines Discussed protein and muscle and's strength and resistance training We stressed the importance of adequate protein intake at the level of 75 g a day Total time spent today was 30 minutes of which greater than 50% was spent on coordinating and counseling Patient has been found to be overweight with a BMI of (29). We are a board certified obesity and weight management practice Of note, some information is being carried forward from prior records for informational purposes only and is being cited so that efficiency, safety and quality of the patient's care is not compromised This note was prepared using voice recognition software and direct typing Please excuse inadvertent mass spectroscopist or typing errors, or uncorrected word substitutions Although every attempt has been made by the provider to proofread this document, occasional misspellings and typographical errors may still be present Due to the previous pandemic, and the use of personal protective equipment (PPE) This may decrease voice recognition accuracy Inadvertent mass spectroscopist errors may occur 01/26/2025 Overweight (BMI 25.0-29.9) (ICD-10 - E66.3) #Weight Management 01/26/2025 Labs reviewed Chemically euthyroid Continue statin, update lipid panel prior to next visit Discussed coronary calcium CT, strongly recommend given family history. Patient will consider following surgery. Continue Wegovy 2.4 Spinal surgery this month Discussed preoperative guidelines Discussed protein and muscle and's strength and resistance training We stressed the importance of adequate protein intake at the level of 75 g a day Total time spent today was 30 minutes of which greater than 50% was spent on coordinating and counseling Patient has been found to be overweight with a BMI of (29). We are a board certified obesity and weight management practice Of note, some information is being carried forward from prior records for informational purposes only and is being cited so that efficiency, safety and quality of the patient's care is not compromised This note was prepared using voice recognition software and direct typing Please excuse inadvertent mass spectroscopist or typing errors, or uncorrected word substitutions Although every attempt has been made by the provider to proofread this document, occasional misspellings and typographical errors may still be present Due to the previous pandemic, and the use of personal protective equipment (PPE) This may decrease voice recognition accuracy Inadvertent mass spectroscopist errors may occur 01/26/2025 Dietary counseling and surveillance (ICD-10 - Z71.3) #Weight Management 01/26/2025 Labs reviewed Chemically euthyroid Continue statin, update lipid panel prior to next visit Discussed coronary calcium CT, strongly recommend given family history. Patient will consider following surgery. Continue Wegovy 2.4 Spinal surgery this month Discussed preoperative guidelines Discussed protein and muscle and's strength and resistance training We stressed the importance of adequate protein intake at the level of 75 g a day Total time spent today was 30 minutes of which greater than 50% was spent on coordinating and counseling Patient has been found to be overweight with a BMI of (29). We are a board certified obesity and weight management practice Of note, some information is being carried forward from prior records for informational purposes only and is being cited so that efficiency, safety and quality of the patient's care is not compromised This note was prepared using voice recognition software and direct typing Please excuse inadvertent mass spectroscopist or typing errors, or uncorrected word substitutions Although every attempt has been made by the provider to proofread this document, occasional misspellings and typographical errors may still be present Due to the previous pandemic, and the use of personal protective equipment (PPE) This may decrease voice recognition accuracy Inadvertent mass spectroscopist errors may occur 01/26/2025 Hypothyroidism, unspecified type (ICD-10 - E03.9) #Weight Management 01/26/2025 Labs reviewed Chemically euthyroid Continue statin, update lipid panel prior to next visit Discussed coronary calcium CT, strongly recommend given family history. Patient will consider following surgery. Continue Wegovy 2.4 Spinal surgery this month Discussed preoperative guidelines Discussed protein and muscle and's strength and resistance training We stressed the importance of adequate protein intake at the level of 75 g a day Total time spent today was 30 minutes of which greater than 50% was spent on coordinating and counseling Patient has been found to be overweight with a BMI of (29). We are a board certified obesity and weight management practice Of note, some information is being carried forward from prior records for informational purposes only and is being cited so that efficiency, safety and quality of the patient's care is not compromised This note was prepared using voice recognition software and direct typing Please excuse inadvertent mass spectroscopist or typing errors, or uncorrected word substitutions Although every attempt has been made by the provider to proofread this document, occasional misspellings and typographical errors may still be present Due to the previous pandemic, and the use of personal protective equipment (PPE) This may decrease voice recognition accuracy Inadvertent mass spectroscopist errors may occur 01/26/2025 Dyslipidemia (ICD-10 - E78.5) #Weight Management 01/26/2025 Labs reviewed Chemically euthyroid Continue statin, update lipid panel prior to next visit Discussed coronary calcium CT, strongly recommend given family history. Patient will consider following surgery. Continue Wegovy 2.4 Spinal surgery this month Discussed preoperative guidelines Discussed protein and muscle and's strength and resistance training We stressed the importance of adequate protein intake at the level of 75 g a day Total time spent today was 30 minutes of which greater than 50% was spent on coordinating and counseling Patient has been found to be overweight with a BMI of (29). We are a board certified obesity and weight management practice Of note, some information is being carried forward from prior records for informational purposes only and is being cited so that efficiency, safety and quality of the patient's care is not compromised This note was prepared using voice recognition software and direct typing Please excuse inadvertent mass spectroscopist or typing errors, or uncorrected word substitutions Although every attempt has been made by the provider to proofread this document, occasional misspellings and typographical errors may still be present Due to the previous pandemic, and the use of personal protective equipment (PPE) This may decrease voice recognition accuracy Inadvertent mass spectroscopist errors may occur 01/26/2025 Levoscoliosis of lumbar spine (ICD-10 - M41.86) #Weight Management 01/26/2025 Labs reviewed Chemically euthyroid Continue statin, update lipid panel prior to next visit Discussed coronary calcium CT, strongly recommend given family history. Patient will consider following surgery. Continue Wegovy 2.4 Spinal surgery this month Discussed preoperative guidelines Discussed protein and muscle and's strength and resistance training We stressed the importance of adequate protein intake at the level of 75 g a day Total time spent today was 30 minutes of which greater than 50% was spent on coordinating and counseling Patient has been found to be overweight with a BMI of (29). We are a board certified obesity and weight management practice Of note, some information is being carried forward from prior records for informational purposes only and is being cited so that efficiency, safety and quality of the patient's care is not compromised This note was prepared using voice recognition software and direct typing Please excuse inadvertent mass spectroscopist or typing errors, or uncorrected word substitutions Although every attempt has been made by the provider to proofread this document, occasional misspellings and typographical errors may still be present Due to the previous pandemic, and the use of personal protective equipment (PPE) This may decrease voice recognition accuracy Inadvertent mass spectroscopist errors may occur 01/26/2025 Post-menopausal (ICD-10 - Z78.0) #Weight Management 01/26/2025 Labs reviewed Chemically euthyroid Continue statin, update lipid panel prior to next visit Discussed coronary calcium CT, strongly recommend given family history. Patient will consider following surgery. Continue Wegovy 2.4 Spinal surgery this month Discussed preoperative guidelines Discussed protein and muscle and's strength and resistance training We stressed the importance of adequate protein intake at the level of 75 g a day Total time spent today was 30 minutes of which greater than 50% was spent on coordinating and counseling Patient has been found to be overweight with a BMI of (29). We are a board certified obesity and weight management practice Of note, some information is being carried forward from prior records for informational purposes only and is being cited so that efficiency, safety and quality of the patient's care is not compromised This note was prepared using voice recognition software and direct typing Please excuse inadvertent mass spectroscopist or typing errors, or uncorrected word substitutions Although every attempt has been made by the provider to proofread this document, occasional misspellings and typographical errors may still be present Due to the previous pandemic, and the use of personal protective equipment (PPE) This may decrease voice recognition accuracy Inadvertent mass spectroscopist errors may occur PLAN OF TREATMENT Medication Medication Name Sig Start Date Stop Date Notes Atorvastatin Calcium 40 MG 1 tablet Oral ly Once a day for 90 days Wegovy 2.4 MG/0.75ML 2.4mg Subcutaneous weekly for 30 days Pending Test Test Name Order Date LIPID PANEL, STANDARD 01/26/2025 Next Appt Details Provider Name:ZARIA VAZQUEZT, 03/14/2025 08:15:00 AM, [address] [facility], [address], [place], [address], Progress Notes * SIAETHANCESAROB:1970 ([age] yo F)Acc No.[id number]:01/26/2025 Patient:??ALLISON STOVALLLYN Provider:??ZARIA GALLOWAY NP :1970?Age:54 Y?Sex:Fe male Date:01/26/2025 Address:[address] [place], [id number] Subjective: * Chief Complaints: * ?1. Pt here for weight management follow up, SECA done.. * HPI: ?Constitutional:? Patient is here today for weight management follow-up visit ?Patient seen and examined. ? Full past medical history, social history, family history, ?allergies and current medications were reviewed and updated. ?Body composition analysis reviewed today ?#Weight Management ?01/26/2025 ?Patient is a dual weight management and primary care patient of our practice ?Patient was finally able to shredder picker her Wegovy and had her first injection in 2 months on Friday. ? Denies any side effects, tolerating well. ?finally She is scheduled to have Spinal surgery L3-L5 this month, ?candice placement, postural correction ?with [facility] on 02/15/2025 ?Discussed preoperative discontinuation guidelines for GLP-1 ?Updated thyroid function as of December 28, 2024 ?TSH within normal limits at 0.83 ?Total T4, also normal at 6.6 ?Has returned to 2.4mg Wegovy weekly maintenance ?Significant family history of cardiovascular disease ?Her sister has significant carotid plaque ?Father had AK ?Her LDL is in the 170s ?She is now on statin ?We also discussed coronary calcium CT ?Sx- hx- bariatric sx (sleeve) ?Denies any side effects and thriving. ? Pt states that for the most part her appetite is suppressed. ?Patient continues to try to add protein in her diet, but she says it could be better. ?Exercise/Strength and resistance training is becoming more frequent ?as she has been riding her daughter's horse. ?Pt is walking regularly, however, does not do resistance training at the moment. ?Discussed the importance of this ?Takes Biotin and Multivitamin ?Is taking women's daily multivitamin and biotin 5000 mg daily supplement. ?Exercise: Currently 5-7k steps daily ?Discussed adding some form of resistance training to maintain muscle mass. ?Allergies- codeine, Penicillin V ?01/26/2025, Weight 168.5 , BMI 28.9 (+3.5lbs) ?12/27/2024, Weight 165lbs , BMI 29 (+7lbs) ?11/16/2024, Weight 158lbs , BMI 28 ?09/27/2024, [...] BMI (-10lbs) ?03/18/2023: Weight 212lbs, BMI 37.6 ?Health maintenance ?Mammography 04/2024, BIRADS 2 Negative ?Colorectal screening: Had one @ age 51, told 10 years. 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 ?Highest weight: 270 lbs ?Lowest weight: 193 lbs ?Goal weight: 150-170 lbs ?IVON screening, refused. ?Comprehensive labs October 2024 ?CBC mostly stable ?Total cholesterol 254, LDL 177, HDL 59, triglycerides 92 ?Vitamin D 26 ?TSH 0.37 ?Total T4, ?Renal function electrolytes LFTs are stable ?Hemoglobin A1c of 5.2 ?Tobacco: denies ?ETOH use: denies. * ROS:?Review of systems negative unless otherwise stated in HPI. * Medical History:??Headache, Gallbladder disease. * Surgical History:??gastric s leeve , gallbladder removal , lumbar fusion . * Family History:??Father: dec eased.??Mother: .??2 sister(s) . .?? mother cancer father-emphysema. * Social History:?Tobacco Use:??Tobacco Use/Smoking??Are you a??nonsmoker.?? * Medications:??Taking Wegovy 2.4 MG/0.75ML Solution Auto-injector 2.4mg Subcutaneous weekly , Taking Atorvastatin Calcium 40 MG Tablet 1 tablet Orally Once a day , Medication List reviewed and reconciled with the patient * Allergies:??Penicillin, Code ine. Objective: * Vitals:??HR:86/min, BP:118/7 6mm Hg, Wt:168lbs, BMI:29.76Index, Ht: 63 in, Oxygen sat %:99%. * [...] 1.??Overweight (BMI 25.0-29. 9) - E66.3 (Primary)??2.??BMI 29.0-29.9,adult - Z68.29??3.??Dietary counseling and surveillance - Z71.3??4.??Hypothyroidism, unspecified type - E03.9??5.??Dyslipidemia - E78.5??6.??Levoscoliosis of lumbar spine - M41.86??7.??Post-menopausal - Z78.0?? #Weight Management 01/26/2025 Labs reviewed Chemically euthyroid Continue statin, update lipid panel prior to next visit Discussed coronary calcium CT, strongly recommend given family history. Patient will consider following surgery. Continue Wegovy 2.4 Spinal surgery this month Discussed preoperative guidelines Discussed protein and muscle and's strength and resistance training We stressed the importance of adequate protein intake at the level of 75 g a day Total time spent today was 30 minutes of which greater than 50% was spent on coordinating and counseling Patient has been found to be overweight with a BMI of (29). We are a board certified obesity and weight management practice Of note, some information is being carried forward from prior records for informational purposes only and is being cited so that efficiency, safety and quality of the patient's care is not compromised This note was prepared using voice recognition software and direct typing Please excuse inadvertent mass spectroscopist or typing errors, or uncorrected word substitutions Although every attempt has been made by the provider to proofread this document, occasional misspellings and typographical errors may still be present Due to the previous pandemic, and the use of personal protective equipment (PPE) This may decrease voice recognition accuracy Inadvertent mass spectroscopist errors may occur. Plan: * Treatment: * Labs:?? * ?Lab: LIPID PANEL, STANDARD * Procedure Codes:??22693 P/M HIGH WIRE ARTIST, INDIV 15 MIN, Modifiers: 33 , SA * Images: Billing Information: * Visit Code:?? 71872 Office Visit, Est Pt., Level 4. Modifiers: SA * Procedure Codes:?? 02076 P/M HIGH WIRE ARTIST, INDIV 15 MIN. Modifiers: 33, SA * Sign off status: Completed true * Provider:??ZARIA GALLOWAY NP Date:??11/2024 History and Physical Notes * HPI (History of Present Illness) Category Sub-Category Detail Notes Category Not es Constitutional Patient is here today for weight management follow-up visit Patient seen and examined. Full past medical history, social history, family history, allergies and current medications were reviewed and updated. Body composition analysis reviewed today #Weight Management 01/26/2025 Patient is a dual weight management and primary care patient of our practice Patient was finally able to shredder picker her Wegovy and had her first injection in 2 months on Friday. Denies any side effects, tolerating well. finally She is scheduled to have Spinal surgery L3-L5 this month, candice placement, postural correction with Hardy @ [employer] on 02/15/2025 Discussed preoperative discontinuation guidelines for GLP-1 Updated thyroid function as of December 28, 2024 TSH within normal limits at 0.83 Total T4, also normal at 6.6 Has returned to 2.4mg Wegovy weekly maintenance Significant family history of cardiovascular disease Her sister has significant carotid plaque Father had AK Her LDL is in the 170s She is now on statin We also discussed coronary calcium CT Sx- hx- bariatric sx (sleeve) Denies any side effects and thriving. Pt states that for the most part her appetite is suppressed. Patient continues to try to add protein in her diet, but she says it could be better. Exercise/Strength and resistance training is becoming more frequent as she has been riding her daughter's horse. Pt is walking regularly, however, does not do resistance training at the moment. Discussed the importance of this Takes Biotin and Multivitamin Is taking women's daily multivitamin and biotin 5000 mg daily supplement. Exercise: Currently 5-7k steps daily Discussed adding some form of resistance training to maintain muscle mass. Allergies- codeine, Penicillin V 01/26/2025, Weight 168.5 , BMI 28.9 (+3.5lbs) 12/27/2024, Weight 165lbs , BMI 29 (+7lbs) 11/16/2024, Weight 158lbs , BMI 28 09/27/2024, [...] BMI (-10lbs) 03/18/2023: Weight 212lbs, BMI 37.6 Health maintenance Mammography 04/2024, BIRADS 2 Negative Colorectal screening: Had one @ age 51, told 10 years. 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 Highest weight: 270 lbs Lowest weight: 193 lbs Goal weight: 150-170 lbs IVON screening, refused. Comprehensive labs October 2024 CBC mostly stable Total cholesterol 254, LDL 177, HDL 59, triglycerides 92 Vitamin D 26 TSH 0.37 Total T4, Renal function electrolytes LFTs are stable Hemoglobin [...]
--- OUTSIDE RECORDS SUMMARY | 2025-02-15 09:41 | XMS_ITS | Encounter Summary ---
Author Organization [facility] Address [address] [place] [address] Care Team Providers Care Weigh And Charge Worker Name Role Phone Maria Luisa Perez MD Primary Care Provider [phone] Encounter Details Date Type Department Care Team (Latest Contact Info) Description 09/09/2024 Lab Requisition [facility] [address] [place] [address] Deniz Jones MD [address] [address] Encounter for gynecological examination (general) [...] lesion or malignancy 09/14/2024 9:29 AM EST [facility] [place] General Categorization Negative 09/14/2024 9:29 AM [facility] Specimen Adequacy Satisfactory for evaluation, endocervical/barnett sformation zone component present 09/14/2024 9:29 AM [facility] Pap Methodology Liquid Based Pap Test 09/14/2024 9:29 AM [facility] Disclaimer The Pap test is a screening test which carries an inherent false negative rate. These test results should be correlated with the patient's clinical findings and history. This Pap test was processed using an automated screening system. Technical cytopathology services provided by [facility], at [address] [place] [id number] (CLIA # [id number]/Dano Dukes MD, Chip Unloader.) 09/14/2024 9:29 AM [facility] Console Pap Interpretation Reported 09/14/2024 9:29 AM [facility] Brushing/Spatula Cervix uteri structure / Unknown 09/09/2024 09/09/2024 3:30 PM EST us Deniz Jones MD LAB CYTOLOGY ORDERABLES Final Result Performing Organization Address City/State/[facility] Co de Phone Number [facility] [address] [place] [address], documented in this encounter Visit Diagnoses Diagnosis Encounter for gynecological examination (general) (routine) without abnormal findings documented in this encounter Care Teams Weigh And Charge Worker Relationship Specialty Start Date End Date Maria Luisa Perez MD [address] [facility] [address] [place] [address] PCP - General Internal Medicine 11/10/24 documented as of this encounter
--- OUTSIDE RECORDS SUMMARY | 2025-02-15 09:41 | XMS_ITS ---
Author Organization [id number] Address [address] [place] [address] Care Team Providers Care Inspector Timers Name Role Phone ZARIA GALLOWAY Unavailable [phone] ALLERGIES Allergen (clinical drug ingredient) Drug/Non Drug Allergy documented on EMR Reaction Allergy Type Onset Date Status codeine Codeine Unknown Drug Allergy Active Penicillin Unknown Drug Allergy Active REASON FOR VISIT Pt here for weight management follow up, SECA done. MEDICATIONS Medication SIG (Take, Route, Frequency, Duration) Notes Start Date End Date Status Wegovy 2.4 MG/0.75ML 2.4mg Subcutaneous weekly for 30 days 12/27/2024 Active Wegovy 2.4 MG/0.75ML USE TO INJECT 2.4MG INTO THE SKIN ONCE WEEKLY 28 DAYS for 28 Not-Taking Atorvastatin Calcium 40 MG 1 tablet Orally Once a day for 90 days 12/27/2024 Active SOCIAL HISTORY Tobacco Use: Social History Observation Description Date Details (start date - stop date) Never Smoker NA - NA Sex Assigned At : Social History Observation Description Sex Assigned At Unknown Tobacco Use/Smoking Question Answer Notes Are you a nonsmoker VITAL SIGNS Blood pressure systolic 118 mm Hg 12/28/19 25 Blood pressure diastolic 70 mm Hg 025 Heart Rate 78 /min 12/27/2024 Height 63 in 12/27/2024 Weight 165 lbs 12/27/2024 BMI 29.23 kg/m2 12/27/2024 Oximetry 98 % 12/27/2024 Encounters Encounter Location Date Provider Diagnosis [facility] [address] [address] 12/27/2024 ZARIA GALLOWAY BMI 29.0-29.9,adult Z68.29 ; Overweight (BMI 25.0-29.9) E66.3 ; Dietary counseling and surveillance Z71.3 ; Hypothyroidism, unspecified type E03.9 and Dyslipidemia E78.5 ASSESSMENTS Encounter Date Diagnosis Assessment Notes Treatment Notes Treatment Clinical Notes Section Notes 12/27/2024 BMI 29.0-29.9,adult (ICD-10 - Z68.29) #Weight Management 12/27/2024 Labs reviewed Discussed lipids and subclinical TSH Follow-up on TSH and total T4 Will start the patient on atorvastatin given her lipids and family history Discussed coronary calcium CT Will check on the status of Wegovy I have given him 0.25 samples in the interim Spinal surgery on hold temporarily pending insurance authorization Discussed preoperative guidelines Discussed protein and muscle and's strength and resistance training We stressed the importance of adequate protein intake at the level of 75 g a day Will see her back later this week for PCP new patient visit Total time spent today was 30 minutes [...] software and direct typing Please excuse inadvertent tooling inspector or typing errors, or uncorrected word substitutions Although every attempt has been made by the provider to proofread this document, occasional misspellings and typographical errors may still be present Due to the previous pandemic, and the use of personal protective equipment (PPE) This may decrease voice recognition accuracy Inadvertent tooling inspector errors may occur 12/27/2024 Overweight (BMI 25.0-29.9) (ICD-10 - E66.3) #Weight Management 12/27/2024 Labs reviewed Discussed lipids and subclinical TSH Follow-up on TSH and total T4 Will start the patient on atorvastatin given her lipids and family history Discussed coronary calcium CT Will check on the status of Wegovy I have given him 0.25 samples in the interim Spinal surgery on hold temporarily pending insurance authorization Discussed preoperative guidelines Discussed protein and muscle and's strength and resistance training We stressed the importance of adequate protein intake at the level of 75 g a day Will see her back later this week for PCP new patient visit Total time spent today was 30 minutes [...] software and direct typing Please excuse inadvertent tooling inspector or typing errors, or uncorrected word substitutions Although every attempt has been made by the provider to proofread this document, occasional misspellings and typographical errors may still be present Due to the previous pandemic, and the use of personal protective equipment (PPE) This may decrease voice recognition accuracy Inadvertent tooling inspector errors may occur 12/27/2024 Dietary counseling and surveillance (ICD-10 - Z71.3) #Weight Management 12/27/2024 Labs reviewed Discussed lipids and subclinical TSH Follow-up on TSH and total T4 Will start the patient on atorvastatin given her lipids and family history Discussed coronary calcium CT Will check on the status of Wegovy I have given him 0.25 samples in the interim Spinal surgery on hold temporarily pending insurance authorization Discussed preoperative guidelines Discussed protein and muscle and's strength and resistance training We stressed the importance of adequate protein intake at the level of 75 g a day Will see her back later this week for PCP new patient visit Total time spent today was 30 minutes [...] software and direct typing Please excuse inadvertent tooling inspector or typing errors, or uncorrected word substitutions Although every attempt has been made by the provider to proofread this document, occasional misspellings and typographical errors may still be present Due to the previous pandemic, and the use of personal protective equipment (PPE) This may decrease voice recognition accuracy Inadvertent tooling inspector errors may occur 12/27/2024 Hypothyroidism, unspecified type (ICD-10 - E03.9) #Weight Management 12/27/2024 Labs reviewed Discussed lipids and subclinical TSH Follow-up on TSH and total T4 Will start the patient on atorvastatin given her lipids and family history Discussed coronary calcium CT Will check on the status of Wegovy I have given him 0.25 samples in the interim Spinal surgery on hold temporarily pending insurance authorization Discussed preoperative guidelines Discussed protein and muscle and's strength and resistance training We stressed the importance of adequate protein intake at the level of 75 g a day Will see her back later this week for PCP new patient visit Total time spent today was 30 minutes [...] software and direct typing Please excuse inadvertent tooling inspector or typing errors, or uncorrected word substitutions Although every attempt has been made by the provider to proofread this document, occasional misspellings and typographical errors may still be present Due to the previous pandemic, and the use of personal protective equipment (PPE) This may decrease voice recognition accuracy Inadvertent tooling inspector errors may occur 12/27/2024 Dyslipidemia (ICD-10 - E78.5) #Weight Management 12/27/2024 Labs reviewed Discussed lipids and subclinical TSH Follow-up on TSH and total T4 Will start the patient on atorvastatin given her lipids and family history Discussed coronary calcium CT Will check on the status of Wegovy I have given him 0.25 samples in the interim Spinal surgery on hold temporarily pending insurance authorization Discussed preoperative guidelines Discussed protein and muscle and's strength and resistance training We stressed the importance of adequate protein intake at the level of 75 g a day Will see her back later this week for PCP new patient visit Total time spent today was 30 minutes [...] software and direct typing Please excuse inadvertent tooling inspector or typing errors, or uncorrected word substitutions Although every attempt has been made by the provider to proofread this document, occasional misspellings and typographical errors may still be present Due to the previous pandemic, and the use of personal protective equipment (PPE) This may decrease voice recognition accuracy Inadvertent tooling inspector errors may occur PLAN OF TREATMENT Medication Medication Name Sig Start Date Stop Date Notes Wegovy 2.4 MG/0.75ML 2.4mg Subcutaneous weekly for 30 days 12/27/2024 Atorvastatin Calcium 40 MG 1 tablet Oral ly Once a day for 90 days 12/27/2024 Next Appt Details Provider Name:ZARIA GALLOWAY, 03/14/2025 08:15:00 AM, [address] [facility], [facility] [address], [place], [address], Progress Notes * BARB STOVALLOB:1970 (6 3 yo F)Acc No.[id number]:12/27/2024 Patient:??HEATHER STOVALL Provider:??ZARIA GALLOWAY NP :1970?Age:54 Y?Sex:Fe male Date:12/27/2024 Address:[address] [place], [id number] Subjective: * Chief Complaints: * ?1. Pt here for weight management follow up, SECA done.. * HPI: ?Constitutional:? Patient is here today for a weight management followup visit ?Patient seen and examined. ? Full past medical history, social history, family history, ?allergies and current medications were reviewed and updated. ?Body composition analysis reviewed today ?#Weight Management ?12/27/2024 ?She will be seeing us this Friday for primary care establishment services ?Comprehensive labs reviewed, discussed lipids as well as subclinical TSH ?At target goal weight ?Patient unfortunately has been off of her weight loss medications for a month now ?She went to garbage pick up worker her most recent prescription and was told it was a $400 co-pay ?Not surprisingly she has gained some weight and her appetite has revved up ?was on 2.4mg Wegovy weekly maintenance ?Significant family history of cardiovascular disease ?Her sister has significant carotid plaque ?Father had MD ?Her LDL is in the 170s ?She needs a statin definitively ?We also discussed coronary calcium CT ?was scheduled to have Spinal surgery L3-L5, candice placement, postural correction ?with [facility] @ [facility] on 08/31/2024 ? this is STILL on [...] maintain muscle mass. ?Allergies- codeine, Penicillin V ?12/27/2024, Weight 165lbs , BMI 29 (+7lbs) [...] Maria Luisa Perez MD. 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 ?Highest weight: 270 lbs [...] Social History:?Tobacco Use:??Tobacco Use/Smoking??Are you a??nonsmoker.?? * Medications:??Not-Taking Weg ovy 2.4 MG/0.75ML Solution Auto-injector USE TO INJECT 2.4MG INTO THE SKIN ONCE WEEKLY 28 DAYS , Medication List reviewed and reconciled with the patient * Allergies:??Penicillin, Code ine. Objective: * Vitals:??HR:78/min, BP:118/7 0mm Hg, Wt:165lbs, BMI:29.23Index, Ht: 63 in, Oxygen sat %:98%. * Examination: ?General Examination: ?GENERAL APPEARANCE:??in no [...] type - E03.9??5.??Dyslipidemia - E78.5?? #Weight Management 12/27/2024 Labs reviewed Discussed lipids and subclinical TSH Follow-up on TSH and total T4 Will start the patient on atorvastatin given her lipids and family history Discussed coronary calcium CT Will check on the status of Wegovy I have given him 0.25 samples in the interim Spinal surgery on hold temporarily pending insurance authorization Discussed preoperative guidelines Discussed protein and muscle and's strength and resistance training We stressed the importance of adequate protein intake at the level of 75 g a day Will see her back later this week for PCP new patient visit Total time spent today was 30 minutes [...] software and direct typing Please excuse inadvertent tooling inspector or typing errors, or uncorrected word substitutions Although every attempt has been made by the provider to proofread this document, occasional misspellings and typographical errors may still be present Due to the previous pandemic, and the use of personal protective equipment (PPE) This may decrease voice recognition accuracy Inadvertent tooling inspector errors may occur. Plan: * Treatment: * Procedure Codes:??05792 P/M SEASONER HAND, INDIV 15 MIN * Images: Billing Information: * Visit Code:?? 42764 Office Visit, Est Pt., Level 4. Modifiers: 25, SA * Procedure Codes:?? 35541 P/M SEASONER HAND, INDIV 15 MIN. * Sign off status: Completed true * Provider:??ZARIA GALLOWAY NP Date:??12/2024 History and Physical Notes * HPI (History of Present Illness) Category Sub-Category Detail Notes Category Not es Constitutional Patient is here today for a weight management followup visit Patient seen and examined. Full past medical history, social history, family history, allergies and current medications were reviewed and updated. Body composition analysis reviewed today #Weight Management 12/27/2024 She will be seeing us this Friday for primary care establishment services Comprehensive labs reviewed, discussed lipids as well as subclinical TSH At target goal weight Patient unfortunately has been off of her weight loss medications for a month now She went to garbage pick up worker her most recent prescription and was told it was a $400 co-pay Not surprisingly she has gained some weight and her appetite has revved up was on 2.4mg Wegovy weekly maintenance Significant family history of cardiovascular disease Her sister has significant carotid plaque Father had MD Her LDL is in the 170s She needs a statin definitively We also discussed coronary calcium CT was scheduled to have Spinal surgery L3-L5, candice placement, postural correction with [facility] @ [facility] on 08/31/2024 this is STILL on hold [...] maintain muscle mass. Allergies- codeine, Penicillin V 12/27/2024, Weight 165lbs , BMI 29 (+7lbs) [...] Maria Luisa Perez MD. 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 Highest weight: 270 lbs [...]
--- OUTSIDE RECORDS SUMMARY | 2025-02-15 09:41 | XMS_ITS | Clinical Summary ---
Author Organization [facility] Address [address] [place] [address] Care Team Providers Care Marine Pipefitter Name Role Phone Maria Luisa Perez MD Primary Care Provider [phone] Allergies Active Allergy Reactions Criticality Noted Date [...] age to complete this topic Care Teams Marine Pipefitter Relationship Specialty Start Date End Date Maria Luisa Perez MD [address] [facility] [address] [place] [address] PCP - General Internal Medicine 09/05/20
--- OUTSIDE RECORDS SUMMARY | 2025-02-15 09:41 | XMS_ITS | Patient Health Record ---
Author Organization [employer] [facility] Address [address] [facility] [place] [address] Care Team Providers Care Tie Worker Name Role Phone ZARIA GALLOWAY Unavailable [phone] SULLY ISRAEL Unavailable [phone] ALLERGIES Allergen (clinical drug ingredient) Drug/Non Drug [...] 09:48:13 AM Interpretation: Performing Lab: Notes/Report: Specific [place] Urine 1.022 1.003-1.030 pH, Urine 5.0 5.0-8.0 pH Leukocytes, Urine Small Negative Nitrite, Urine Negative Negative Protein, Urine Negative <=Trace mg/dL Glucose, Urine Negative Negative mg/dL Ketones, Urine Negative Negative mg/dL Urobilinogen, Urine 0.2 0.2-1.0 mg/dL Bilirubin, Urine Negative Negative Blood, Urine Negative Negative THYROID STIMULATING HORMONE Reviewed date:12/28/2024 11:55:01 AM Interpretation: Performing Lab: Notes/Report: TSH 0.83 0.40-4.00 mcIU/mL THYROXINE TOTAL Reviewed date:12/28/2024 11:55:01 AM Interpretation: Performing Lab: Notes/Report: add on T4 T4, Total 6.6 4.5-10.9 mcg/dL BD BONE DENSITY DXA AXIAL SK [facility] Reviewed date:01/21/2025 11:10:22 AM Interpretation: Performing Lab: Notes/Report: Note See Note [facility], a member of [employer] Patient Name: HEATHER STOVALL Date of : 1970 Reason for Exam: OSTEOPOROSIS Exam Date: 01/21/2025 [id number] EST Report Status: Final Ordering Provider: ZARIA GALLOWAY PCP: KHALIDA ROYAL HISTORY: The patient is a 54-year-old postmenopausal female with clinical concern for metabolic bone disease. FINDINGS: Dual energ y x-ray absorptiometry of the lumbar spine and femurs is performed. The mean bone mineral density at L1-L4 is 1.266 gm/cm2 which is 108% of that of young normals and 111% of that of age matched controls. This yields a T-score of 0.8 and a Z-score of 1.1 and there is therefore no evidence of osteoporosis or osteopenia here. The mean bone minera l density of the femurs bilaterally is 1.029 gm/cm2 which is 102% of that of young normals and 106% of that of age matched controls. This yields a T-score of 0.2 and a Z-score of 0.5 and there is therefore no evidence of osteoporosis or osteopenia here. IMPRESSION: 1. There is no evide nce of osteoporosis or osteopenia. 2. FRAX analysis [place] lds a 10-year probability of major osteoporotic fracture of 2.5% and a 10-year probability of hip fracture of 0.0%. Code 02228 -------- FINAL REPOR T -------- Dictated By: Phillip Lane Dictated Date: 01/21/2025 10:43 ET Assigned Physician: Phillip Lane Reviewed and Electronically Signed By: Phillip Lane Signed Date: 025 10:44 ET Workstation ID: [id number] Transcribed By: Self Edit Transcribed Date: 01/21/2025 10:43 ET REASON FOR REFERRAL No Information MEDICATIONS Medication SIG (Take, Route, Frequency, Duration) [...] unspecified (E55.9) Active confirmed Vitamin D deficiency (42287055) Problem Other obesity due to excess calories (E66.09) Active confirmed 956869571 Problem Encounter for screening for lipoid disorders (Z13.220) Active confirmed Lipid screening (660621604) Problem Encounter for screening for osteoporosis (Z13.820) Active confirmed Screening for osteoporosis (267076635) Problem Adult general medical exam (Z00.00) Active confirmed Adult health examination (473444502) Problem Hypothyroidism, unspecified type (E03.9) Active confirmed Hypothyroidism (94735523) Problem Diabetes mellitus screening (Z13.1) Active confirmed Diabetes mellit us screening (577603719) Problem Body mass index [BMI] 37.0-37.9, adult (Z68.37) Active confirmed 248508085 Problem Dyslipidemia (E78.5) Active confirmed 094661008 Problem BMI 35.0-35.9,adult (Z68.35) Active confirmed 967637351 Problem BMI 31.0-31.9,adult (Z68.31) Active confirmed 475362100 Problem Overweight (BMI 25.0-29.9) (E66.3) Active confirmed Overweight (546058923) Problem Encounter for screening for endocrine disorder (Z13.29) Active confirmed Endocrine/metab ol ic screening (114029190) VITAL SIGNS Heart Rate 86 /min 01/26/2025 Oximetry 99 % 01/26/2025 Blood pressure diastolic 76 mm Hg 01/26/2025 Height 63 in 01/26/2025 Blood pressure systolic 118 mm Hg 01/26/2025 Weight 168 lbs 01/26/2025 BMI 29.76 kg/m2 01/26/2025 Encounters Encounter Location Date Provider Diagnosis [place] [address] [address] 08/23/2024 SULLY ISRAEL [place] [address] 09/20/2024 ZARIA GALLOWAY [place] [address] 03/29/2024 ZARIA GALLOWAY Overweight (BMI 25.0-29.9) E66.3 ; BMI 28.0-28.9,adult Z68.28 and Dietary counseling and surveillance Z71.3 [place] [address] 06/01/2024 ZARIA GALLOWAY Overweight (BMI 25.0-29.9) E66.3 ; BMI 27.0-27.9,adult Z68.27 and Dietary counseling and surveillance Z71.3 [place] [address] 07/26/2024 ZARIA GALLOWAY BMI 27.0-27.9,adult Z68.27 ; Overweight (BMI 25.0-29.9) E66.3 and Dietary counseling and surveillance Z71.3 [place] [address] 09/27/2024 ZARIA BORHOT BMI 28.0-28.9,adult Z68.28 ; Overweight (BMI 25.0-29.9) E66.3 and Dietary counseling and surveillance Z71.[address] 11/16/2024 ZARIA BORHOT BMI 28.0-28.9,adult Z68.28 ; Overweight (BMI 25.0-29.9) E66.3 ; Dietary counseling and surveillance Z71.3 ; Hypothyroidism, unspecified type E03.9 and Dyslipidemia E78.[address] 12/27/2024 ZARIA BORHOT BMI 29.0-29.9,adult Z68.29 ; Overweight (BMI 25.0-29.9) E66.3 ; Dietary counseling and surveillance Z71.3 ; Hypothyroidism, unspecified type E03.9 and Dyslipidemia E78.[address] 12/29/2024 ZARIA BORHOT BMI 29.0-29.9,adult Z68.29 ; Overweight (BMI 25.0-29.9) E66.3 ; Dietary counseling and surveillance Z71.3 ; Hypothyroidism, unspecified type E03.9 ; Dyslipidemia E78.5 ; Levoscoliosis of lumbar spine M41.86 ; Post-menopausal Z78.0 and Encounter for screening for osteoporosis Z13.[address] 01/26/2025 ZARIA BORHOT BMI 29.0-29.9,adult Z68.29 ; Overweight (BMI 25.0-29.9) E66.3 ; Dietary counseling and surveillance Z71.3 ; Hypothyroidism, unspecified type E03.9 ; Dyslipidemia E78.5 ; Levoscoliosis of lumbar spine M41.86 and Post-menopausal Z78.[address] 03/09/2024 ZARIA BORHOT Overweight (BMI 25.0-29.9) E66.[address] [phone] 03/16/2024 ZARIA VAZQUEZT [place] [address] [address] 03/30/2024 ZARIA GALLOWAY Overweight (BMI 25.0-29.9) E66.3 [place] [address] [address] 09/16/2024 ZARIA VAZQUEZT [place] [address] 09/22/2024 ZARIA GALLOWAY ASSESSMENTS Encounter Date Diagnosis Assessment Notes Treatment Notes Treatment Clinical Notes Section Notes 03/29/2024 BMI 28.0-28.9,adult (ICD-10 - Z68.28) #Weight Management 03/29/2024 Check on status of appeal for PA Wejosselyn We stressed the importance of adequate protein [...] track activity level. Consider using apps like [employer], myfitnesspal, lose it, stick as needed for self-monitoring and weight management. Consider group exercises. Consider hiring a personal health coach. Regular exercise is [place] to sustainable health [...] counseling and psychiatry and Dr Villeda at [facility]. We would like to cover regular topics [...] software and direct typing Please excuse inadvertent farmworker fruit or typing errors, or uncorrected word substitutions Although every attempt has been made by the provider to proofread this document, occasional misspellings and typographical errors may still be present Due to the previous pandemic, and the use of personal protective equipment (PPE) This may decrease voice recognition accuracy Inadvertent farmworker fruit errors may occur 03/29/2024 Overweight (BMI 25.0-29.9) [...] track activity level. Consider using apps like [employer], [employer], lose it, stick as needed for self-monitoring and weight management. Consider group exercises. Consider hiring a personal health coach. Regular exercise is [place] to sustainable health [...] counseling and psychiatry and Dr Villeda at [facility]. We would like to cover regular topics [...] software and direct typing Please excuse inadvertent farmworker fruit or typing errors, or uncorrected word substitutions Although every attempt has been made by the provider to proofread this document, occasional misspellings and typographical errors may still be present Due to the previous pandemic, and the use of personal protective equipment (PPE) This may decrease voice recognition accuracy Inadvertent farmworker fruit errors may occur 03/30/2024 Overweight (BMI 25.0-29.9) (ICD-10 - E66.3) 03/09/2024 Overweight (BMI 25.0-29.9) (ICD-10 - E66.3) [...] track activity level. Consider using apps like [employer], [employer], lose it, stick as needed for self-monitoring and weight management. Consider group exercises. Consider hiring a personal health coach. Regular exercise is kil[place] to sustainable health [...] counseling and psychiatry and Dr Villeda at [facility]. We would like to cover regular topics [...] software and direct typing Please excuse inadvertent farmworker fruit or typing errors, or uncorrected word substitutions Although every attempt has been made by the provider to proofread this document, occasional misspellings and typographical errors may still be present Due to the previous pandemic, and the use of personal protective equipment (PPE) This may decrease voice recognition accuracy Inadvertent farmworker fruit errors may occur 06/01/2024 Overweight (BMI 25.0-29.9) [...] track activity level. Consider using apps like [employer], [employer], lose it, stick as needed for self-monitoring and weight management. Consider group exercises. Consider hiring a personal health coach. Regular exercise is [place] to sustainable health [...] counseling and psychiatry and Dr Villeda at [facility]. We would like to cover regular topics [...] software and direct typing Please excuse inadvertent farmworker fruit or typing errors, or uncorrected word substitutions Although every attempt has been made by the provider to proofread this document, occasional misspellings and typographical errors may still be present Due to the previous pandemic, and the use of personal protective equipment (PPE) This may decrease voice recognition accuracy Inadvertent farmworker fruit errors may occur 09/27/2024 BMI 28.0-28.9,adult (ICD-10 [...] software and direct typing Please excuse inadvertent farmworker fruit or typing errors, or uncorrected word substitutions Although every attempt has been made by the provider to proofread this document, occasional misspellings and typographical errors may still be present Due to the previous pandemic, and the use of personal protective equipment (PPE) This may decrease voice recognition accuracy Inadvertent farmworker fruit errors may occur 11/16/2024 BMI 28.0-28.9,adult (ICD-10 [...] software and direct typing Please excuse inadvertent farmworker fruit or typing errors, or uncorrected word substitutions Although every attempt has been made by the provider to proofread this document, occasional misspellings and typographical errors may still be present Due to the previous pandemic, and the use of personal protective equipment (PPE) This may decrease voice recognition accuracy Inadvertent farmworker fruit errors may occur 07/26/2024 BMI 27.0-27.9,adult (ICD-10 [...] track activity level. Consider using apps like [employer], [employer], lose it, stick as needed for self-monitoring and weight management. Consider group exercises. Consider hiring a personal health coach. Regular exercise is [place] to sustainable health [...] counseling and psychiatry and Dr Villeda at [facility]. We would like to cover regular topics [...] software and direct typing Please excuse inadvertent farmworker fruit or typing errors, or uncorrected word substitutions Although every attempt has been made by the provider to proofread this document, occasional misspellings and typographical errors may still be present Due to the previous pandemic, and the use of personal protective equipment (PPE) This may decrease voice recognition accuracy Inadvertent farmworker fruit errors may occur 12/27/2024 BMI 29.0-29.9,adult (ICD-10 - Z68.29) #Weight [...] software and direct typing Please excuse inadvertent farmworker fruit or typing errors, or uncorrected word substitutions Although every attempt has been made by the provider to proofread this document, occasional misspellings and typographical errors may still be present Due to the previous pandemic, and the use of personal protective equipment (PPE) This may decrease voice recognition accuracy Inadvertent farmworker fruit errors may occur 12/29/2024 BMI 29.0-29.9,adult (ICD-10 - Z68.29) Acute Concerns/Problem List: 12/29/2024 Labs reviewed Normal thyroid function on repeat labs Will start the patient on atorvastatin given her lipids and family history Discussed coronary calcium CT _update DEXA Will check on the status of Wegovy [...] software and direct typing Please excuse inadvertent farmworker fruit or typing errors, or uncorrected word substitutions Although every attempt has been made by the provider to proofread this document, occasional misspellings and typographical errors may still be present Due to the previous pandemic, and the use of personal protective equipment (PPE) This may decrease voice recognition accuracy Inadvertent farmworker fruit errors may occur 01/26/2025 BMI 29.0-29.9,adult (ICD-10 - Z68.29) #Weight [...] software and direct typing Please excuse inadvertent farmworker fruit or typing errors, or uncorrected word substitutions Although every attempt has been made by the provider to proofread this document, occasional misspellings and typographical errors may still be present Due to the previous pandemic, and the use of personal protective equipment (PPE) This may decrease voice recognition accuracy Inadvertent farmworker fruit errors may occur 01/26/2025 Overweight (BMI 25.0-29.9) [...] software and direct typing Please excuse inadvertent farmworker fruit or typing errors, or uncorrected word substitutions Although every attempt has been made by the provider to proofread this document, occasional misspellings and typographical errors may still be present Due to the previous pandemic, and the use of personal protective equipment (PPE) This may decrease voice recognition accuracy Inadvertent farmworker fruit errors may occur 12/29/2024 Overweight (BMI 25.0-29.9) (ICD-10 - E66.3) Acute Concerns/Problem List: 12/29/2024 Labs reviewed Normal thyroid function on repeat labs Will start the patient on atorvastatin given her lipids and family history Discussed coronary calcium CT _update DEXA Will check on the status of Wegovy [...] software and direct typing Please excuse inadvertent farmworker fruit or typing errors, or uncorrected word substitutions Although every attempt has been made by the provider to proofread this document, occasional misspellings and typographical errors may still be present Due to the previous pandemic, and the use of personal protective equipment (PPE) This may decrease voice recognition accuracy Inadvertent farmworker fruit errors may occur 01/26/2025 Dietary counseling and [...] software and direct typing Please excuse inadvertent farmworker fruit or typing errors, or uncorrected word substitutions Although every attempt has been made by the provider to proofread this document, occasional misspellings and typographical errors may still be present Due to the previous pandemic, and the use of personal protective equipment (PPE) This may decrease voice recognition accuracy Inadvertent farmworker fruit errors may occur 12/29/2024 Dietary counseling and surveillance (ICD-10 - Z71.3) Acute Concerns/Problem List: 12/29/2024 Labs reviewed Normal thyroid function on repeat labs Will start the patient on atorvastatin given her lipids and family history Discussed coronary calcium CT _update DEXA Will check on the status of Wejosselyn I have given him 0.25 samples in [...] software and direct typing Please excuse inadvertent farmworker fruit or typing errors, or uncorrected word substitutions Although every attempt has been made by the provider to proofread this document, occasional misspellings and typographical errors may still be present Due to the previous pandemic, and the use of personal protective equipment (PPE) This may decrease voice recognition accuracy Inadvertent farmworker fruit errors may occur 12/27/2024 Overweight (BMI 25.0-29.9) [...] software and direct typing Please excuse inadvertent farmworker fruit or typing errors, or uncorrected word substitutions Although every attempt has been made by the provider to proofread this document, occasional misspellings and typographical errors may still be present Due to the previous pandemic, and the use of personal protective equipment (PPE) This may decrease voice recognition accuracy Inadvertent farmworker fruit errors may occur 07/26/2024 Overweight (BMI 25.0-29.9) [...] track activity level. Consider using apps like [employer], [employer], lose it, stick as needed for self-monitoring and weight management. Consider group exercises. Consider hiring a personal health coach. Regular exercise is [place] to sustainable health [...] counseling and psychiatry and Dr Villeda at [facility]. We would like to cover regular topics [...] software and direct typing Please excuse inadvertent farmworker fruit or typing errors, or uncorrected word substitutions Although every attempt has been made by the provider to proofread this document, occasional misspellings and typographical errors may still be present Due to the previous pandemic, and the use of personal protective equipment (PPE) This may decrease voice recognition accuracy Inadvertent farmworker fruit errors may occur 09/27/2024 Dietary counseling and [...] software and direct typing Please excuse inadvertent farmworker fruit or typing errors, or uncorrected word substitutions Although every attempt has been made by the provider to proofread this document, occasional misspellings and typographical errors may still be present Due to the previous pandemic, and the use of personal protective equipment (PPE) This may decrease voice recognition accuracy Inadvertent farmworker fruit errors may occur 11/16/2024 Overweight (BMI 25.0-29.9) [...] software and direct typing Please excuse inadvertent farmworker fruit or typing errors, or uncorrected word substitutions Although every attempt has been made by the provider to proofread this document, occasional misspellings and typographical errors may still be present Due to the previous pandemic, and the use of personal protective equipment (PPE) This may decrease voice recognition accuracy Inadvertent farmworker fruit errors may occur 12/27/2024 Dietary counseling and surveillance (ICD-10 - Z71.3) #Weight Management 12/27/2024 Labs reviewed Discussed lipids and subclinical TSH Follow-up on TSH and total T4 Will start the patient on atorvastatin given her lipids and family history Discussed coronary calcium CT Will check on the status of Catie I have given him 0.25 samples in [...] software and direct typing Please excuse inadvertent farmworker fruit or typing errors, or uncorrected word substitutions Although every attempt has been made by the provider to proofread this document, occasional misspellings and typographical errors may still be present Due to the previous pandemic, and the use of personal protective equipment (PPE) This may decrease voice recognition accuracy Inadvertent farmworker fruit errors may occur 09/27/2024 Overweight (BMI 25.0-29.9) [...] software and direct typing Please excuse inadvertent farmworker fruit or typing errors, or uncorrected word substitutions Although every attempt has been made by the provider to proofread this document, occasional misspellings and typographical errors may still be present Due to the previous pandemic, and the use of personal protective equipment (PPE) This may decrease voice recognition accuracy Inadvertent farmworker fruit errors may occur 11/16/2024 Dietary counseling and [...] software and direct typing Please excuse inadvertent farmworker fruit or typing errors, or uncorrected word substitutions Although every attempt has been made by the provider to proofread this document, occasional misspellings and typographical errors may still be present Due to the previous pandemic, and the use of personal protective equipment (PPE) This may decrease voice recognition accuracy Inadvertent farmworker fruit errors may occur 03/29/2024 Dietary counseling and surveillance (ICD-10 - Z71.3) #Weight Management 03/29/2024 Check on status of appeal for ANDREW Haddad We stressed the importance of adequate protein [...] track activity level. Consider using apps like [employer], [employer]itnesspal, lose it, stick as needed for self-monitoring and weight management. Consider group exercises. Consider hiring a personal health coach. Regular exercise is [place] to sustainable health [...] counseling and psychiatry and Dr Villeda at [facility]. We would like to cover regular topics [...] software and direct typing Please excuse inadvertent farmworker fruit or typing errors, or uncorrected word substitutions Although every attempt has been made by the provider to proofread this document, occasional misspellings and typographical errors may still be present Due to the previous pandemic, and the use of personal protective equipment (PPE) This may decrease voice recognition accuracy Inadvertent farmworker fruit errors may occur 06/01/2024 Dietary counseling and [...] track activity level. Consider using apps like [employer], [employer], lose it, stick as needed for self-monitoring and weight management. Consider group exercises. Consider hiring a personal health coach. Regular exercise is [place] to sustainable health [...] counseling and psychiatry and Dr Villeda at [facility]. We would like to cover regular topics [...] software and direct typing Please excuse inadvertent farmworker fruit or typing errors, or uncorrected word substitutions Although every attempt has been made by the provider to proofread this document, occasional misspellings and typographical errors may still be present Due to the previous pandemic, and the use of personal protective equipment (PPE) This may decrease voice recognition accuracy Inadvertent farmworker fruit errors may occur 07/26/2024 Dietary counseling and [...] track activity level. Consider using apps like [employer], [employer], lose it, stick as needed for self-monitoring and weight management. Consider group exercises. Consider hiring a personal health coach. Regular exercise is [place] to sustainable health [...] counseling and psychiatry and Dr Villeda at [facility]. We would like to cover regular topics [...] software and direct typing Please excuse inadvertent farmworker fruit or typing errors, or uncorrected word substitutions Although every attempt has been made by the provider to proofread this document, occasional misspellings and typographical errors may still be present Due to the previous pandemic, and the use of personal protective equipment (PPE) This may decrease voice recognition accuracy Inadvertent farmworker fruit errors may occur 11/16/2024 Hypothyroidism, unspecified type [...] software and direct typing Please excuse inadvertent farmworker fruit or typing errors, or uncorrected word substitutions Although every attempt has been made by the provider to proofread this document, occasional misspellings and typographical errors may still be present Due to the previous pandemic, and the use of personal protective equipment (PPE) This may decrease voice recognition accuracy Inadvertent farmworker fruit errors may occur 12/27/2024 Hypothyroidism, unspecified type [...] software and direct typing Please excuse inadvertent farmworker fruit or typing errors, or uncorrected word substitutions Although every attempt has been made by the provider to proofread this document, occasional misspellings and typographical errors may still be present Due to the previous pandemic, and the use of personal protective equipment (PPE) This may decrease voice recognition accuracy Inadvertent farmworker fruit errors may occur 12/29/2024 Hypothyroidism, unspecified type (ICD-10 - E03.9) Acute Concerns/Problem List: 12/29/2024 Labs reviewed Normal thyroid function on repeat labs Will start the patient on atorvastatin given her lipids and family history Discussed coronary calcium CT _update DEXA Will check on the status of Wegovy [...] software and direct typing Please excuse inadvertent farmworker fruit or typing errors, or uncorrected word substitutions Although every attempt has been made by the provider to proofread this document, occasional misspellings and typographical errors may still be present Due to the previous pandemic, and the use of personal protective equipment (PPE) This may decrease voice recognition accuracy Inadvertent farmworker fruit errors may occur 01/26/2025 Hypothyroidism, unspecified type [...] software and direct typing Please excuse inadvertent farmworker fruit or typing errors, or uncorrected word substitutions Although every attempt has been made by the provider to proofread this document, occasional misspellings and typographical errors may still be present Due to the previous pandemic, and the use of personal protective equipment (PPE) This may decrease voice recognition accuracy Inadvertent farmworker fruit errors may occur 01/26/2025 Dyslipidemia (ICD-10 - [...] software and direct typing Please excuse inadvertent farmworker fruit or typing errors, or uncorrected word substitutions Although every attempt has been made by the provider to proofread this document, occasional misspellings and typographical errors may still be present Due to the previous pandemic, and the use of personal protective equipment (PPE) This may decrease voice recognition accuracy Inadvertent farmworker fruit errors may occur 12/29/2024 Dyslipidemia (ICD-10 - E78.5) Acute Concerns/Problem List: 12/29/2024 Labs reviewed Normal thyroid function on repeat labs Will start the patient on atorvastatin given her lipids and family history Discussed coronary calcium CT _update DEXA Will check on the status of Wegovy [...] software and direct typing Please excuse inadvertent farmworker fruit or typing errors, or uncorrected word substitutions Although every attempt has been made by the provider to proofread this document, occasional misspellings and typographical errors may still be present Due to the previous pandemic, and the use of personal protective equipment (PPE) This may decrease voice recognition accuracy Inadvertent farmworker fruit errors may occur 12/27/2024 Dyslipidemia (ICD-10 - [...] software and direct typing Please excuse inadvertent farmworker fruit or typing errors, or uncorrected word substitutions Although every attempt has been made by the provider to proofread this document, occasional misspellings and typographical errors may still be present Due to the previous pandemic, and the use of personal protective equipment (PPE) This may decrease voice recognition accuracy Inadvertent farmworker fruit errors may occur 11/16/2024 Dyslipidemia (ICD-10 - [...] software and direct typing Please excuse inadvertent farmworker fruit or typing errors, or uncorrected word substitutions Although every attempt has been made by the provider to proofread this document, occasional misspellings and typographical errors may still be present Due to the previous pandemic, and the use of personal protective equipment (PPE) This may decrease voice recognition accuracy Inadvertent farmworker fruit errors may occur 12/29/2024 Levoscoliosis of lumbar spine (ICD-10 - M41.86) Acute Concerns/Problem List: 12/29/2024 Labs reviewed Normal thyroid function on repeat labs Will start the patient on atorvastatin given her lipids and family history Discussed coronary calcium CT _update DEXA Will check on the status of Wegovy [...] software and direct typing Please excuse inadvertent farmworker fruit or typing errors, or uncorrected word substitutions Although every attempt has been made by the provider to proofread this document, occasional misspellings and typographical errors may still be present Due to the previous pandemic, and the use of personal protective equipment (PPE) This may decrease voice recognition accuracy Inadvertent farmworker fruit errors may occur 01/26/2025 Levoscoliosis of lumbar [...] software and direct typing Please excuse inadvertent farmworker fruit or typing errors, or uncorrected word substitutions Although every attempt has been made by the provider to proofread this document, occasional misspellings and typographical errors may still be present Due to the previous pandemic, and the use of personal protective equipment (PPE) This may decrease voice recognition accuracy Inadvertent farmworker fruit errors may occur 01/26/2025 Post-menopausal (ICD-10 - [...] software and direct typing Please excuse inadvertent farmworker fruit or typing errors, or uncorrected word substitutions Although every attempt has been made by the provider to proofread this document, occasional misspellings and typographical errors may still be present Due to the previous pandemic, and the use of personal protective equipment (PPE) This may decrease voice recognition accuracy Inadvertent farmworker fruit errors may occur 12/29/2024 Post-menopausal (ICD-10 - Z78.0) Acute Concerns/Problem List: 12/29/2024 Labs reviewed Normal thyroid function on repeat labs Will start the patient on atorvastatin given her lipids and family history Discussed coronary calcium CT _update DEXA Will check on the status of Wegovy [...] software and direct typing Please excuse inadvertent farmworker fruit or typing errors, or uncorrected word substitutions Although every attempt has been made by the provider to proofread this document, occasional misspellings and typographical errors may still be present Due to the previous pandemic, and the use of personal protective equipment (PPE) This may decrease voice recognition accuracy Inadvertent farmworker fruit errors may occur 12/29/2024 Encounter for screening for osteoporosis (ICD-10 - Z13.820) Acute Concerns/Problem List: 12/29/2024 Labs reviewed Normal thyroid function on repeat labs Will start the patient on atorvastatin given her lipids and family history Discussed coronary calcium CT _update DEXA Will check on the status of Wegovy [...] software and direct typing Please excuse inadvertent farmworker fruit or typing errors, or uncorrected word substitutions Although every attempt has been made by the provider to proofread this document, occasional misspellings and typographical errors may still be present Due to the previous pandemic, and the use of personal protective equipment (PPE) This may decrease voice recognition accuracy Inadvertent farmworker fruit errors may occur PLAN OF TREATMENT Pending Test Test Name Order Date Bone Density 12/29/2024 LIPID PANEL, STANDARD 01/26/2025 LIPID PANEL, STANDARD 09/27/2024 LIPID PANEL, STANDARD 11/16/2024 COMPREHENSIVE METABOLIC PANEL 09/27/2024 CBC (INCLUDES DIFF/PLT) 09/27/2024 URINALYSIS, COMPLETE 09/27/2024 HEMOGLOBIN A1c 09/27/2024 T4 (THYROXINE), TOTAL 11/16/2024 TSH 11/16/2024 TSH 09/27/2024 VITAMIN D,25-OH,TOTAL,IA 09/27/2024 Next Appt Details Provider Name:ZARIA GALLOWAY, 03/14/2025 08:15:00 AM, [address] [facility], [facility] [address], [place], [address], Insurance Providers Payer Name Payer Address Payer Phone Subscriber Number Group Number Insured Name Patient Relationship to Insured Coverage Start Date Coverage End Date [employer] [address] [address] [place] [address] [id number] HEATHER STOVALL Self - patient is the insured MEDICATIONS ADMINISTERED Medication Instructions Date of Administration Dosage Notes MICC B12 INJECTION 09/05/2023 1 mL MEDICAL (GENERAL) HISTORY Medical History History ICD Code headache gallbladder disease Surgical History Surgery Date(Month/Year) gastric sleeve gallbladder removal lumbar fusion
--- OUTSIDE RECORDS SUMMARY | 2025-02-15 09:42 | XMS_ITS ---
Author Name [facility] Organization Unknown Encounters Encounter Type Encounter Reason Primary Diagnosis Location Date Ambulatory [facility] [place] 03/10/2023
--- OUTSIDE RECORDS SUMMARY | 2025-02-15 09:42 | XMS_ITS ---
Author Organization [facility] Address [address] [place] [address] Care Team Providers Care Research And Evaluation Analyst Name Role Phone NILESH ZARIA Unavailable [phone] ALLERGIES Allergen (clinical drug ingredient) Drug/Non Drug Allergy documented on EMR Reaction Allergy Type Onset Date Status codeine Codeine Unknown Drug Allergy Active Penicillin Unknown Drug Allergy Active REASON FOR VISIT Pt here for new pt visit to establish care for pcp. MEDICATIONS Medication SIG (Take, Route, Frequency, Duration) Notes Start Date End Date Status Wegovy 2.4 MG/0.75ML 2.4mg Subcutaneous weekly for 30 days Active Atorvastatin Calcium 40 MG 1 tablet Oral ly Once a day for 90 days Active SOCIAL HISTORY Tobacco Use: Social History Observation Description Date Details (start date - stop date) Never Smoker NA - NA Sex Assigned At : Social History Observation Description Sex Assigned At Unknown Tobacco Use/Smoking Question Answer Notes Are you a nonsmoker VITAL SIGNS Blood pressure systolic 118 mm Hg 12/30/19 25 Blood pressure diastolic 76 mm Hg 025 Heart Rate 82 /min 12/29/2024 Height 63 in 12/29/2024 Weight 165 lbs 12/29/2024 BMI 29.23 kg/m2 12/29/2024 Oximetry 98 % 12/29/2024 Encounters Encounter Location Date Provider Diagnosis [facility] [address] [facility] [address] [facility] [address] [place] [address] 12/29/2024 ZARIA GALLOWAY BMI 29.0-29.9,adult Z68.29 ; Overweight (BMI 25.0-29.9) E66.3 ; Dietary counseling and surveillance Z71.3 ; Hypothyroidism, unspecified type E03.9 ; Dyslipidemia E78.5 ; Levoscoliosis of lumbar spine M41.86 ; Post-menopausal Z78.0 and Encounter for screening for osteoporosis Z13.820 ASSESSMENTS Encounter Date Diagnosis Assessment Notes Treatment Notes Treatment Clinical Notes Section Notes 12/29/2024 BMI 29.0-29.9,adult (ICD-10 - Z68.29) Acute [...] software and direct typing Please excuse inadvertent violin teacher or typing errors, or uncorrected word substitutions Although every attempt has been made by the provider to proofread this document, occasional misspellings and typographical errors may still be present Due to the previous pandemic, and the use of personal protective equipment (PPE) This may decrease voice recognition accuracy Inadvertent violin teacher errors may occur 12/29/2024 Overweight (BMI 25.0-29.9) [...] software and direct typing Please excuse inadvertent violin teacher or typing errors, or uncorrected word substitutions Although every attempt has been made by the provider to proofread this document, occasional misspellings and typographical errors may still be present Due to the previous pandemic, and the use of personal protective equipment (PPE) This may decrease voice recognition accuracy Inadvertent violin teacher errors may occur 12/29/2024 Dietary counseling and [...] software and direct typing Please excuse inadvertent violin teacher or typing errors, or uncorrected word substitutions Although every attempt has been made by the provider to proofread this document, occasional misspellings and typographical errors may still be present Due to the previous pandemic, and the use of personal protective equipment (PPE) This may decrease voice recognition accuracy Inadvertent violin teacher errors may occur 12/29/2024 Hypothyroidism, unspecified type [...] software and direct typing Please excuse inadvertent violin teacher or typing errors, or uncorrected word substitutions Although every attempt has been made by the provider to proofread this document, occasional misspellings and typographical errors may still be present Due to the previous pandemic, and the use of personal protective equipment (PPE) This may decrease voice recognition accuracy Inadvertent violin teacher errors may occur 12/29/2024 Dyslipidemia (ICD-10 - E78.5) Acute Concerns/Problem List: 12/29/2024 Labs reviewed Normal thyroid function on repeat labs Will start the patient on atorvastatin given her lipids and family history Discussed coronary calcium CT _update DEXA Will check on the status of Catie [...] software and direct typing Please excuse inadvertent violin teacher or typing errors, or uncorrected word substitutions Although every attempt has been made by the provider to proofread this document, occasional misspellings and typographical errors may still be present Due to the previous pandemic, and the use of personal protective equipment (PPE) This may decrease voice recognition accuracy Inadvertent violin teacher errors may occur 12/29/2024 Levoscoliosis of lumbar [...] software and direct typing Please excuse inadvertent violin teacher or typing errors, or uncorrected word substitutions Although every attempt has been made by the provider to proofread this document, occasional misspellings and typographical errors may still be present Due to the previous pandemic, and the use of personal protective equipment (PPE) This may decrease voice recognition accuracy Inadvertent violin teacher errors may occur 12/29/2024 Post-menopausal (ICD-10 - [...] software and direct typing Please excuse inadvertent violin teacher or typing errors, or uncorrected word substitutions Although every attempt has been made by the provider to proofread this document, occasional misspellings and typographical errors may still be present Due to the previous pandemic, and the use of personal protective equipment (PPE) This may decrease voice recognition accuracy Inadvertent violin teacher errors may occur 12/29/2024 Encounter for screening [...] software and direct typing Please excuse inadvertent violin teacher or typing errors, or uncorrected word substitutions Although every attempt has been made by the provider to proofread this document, occasional misspellings and typographical errors may still be present Due to the previous pandemic, and the use of personal protective equipment (PPE) This may decrease voice recognition accuracy Inadvertent violin teacher errors may occur PLAN OF TREATMENT Medication Medication Name Sig Start Date Stop Date Notes Wegovy 2.4 MG/0.75ML 2.4mg Subcutaneous weekly for 30 days Atorvastatin Calcium 40 MG 1 tablet Oral ly Once a day for 90 days Pending Test Test Name Order Date Bone Density 12/29/2024 Next Appt Details Provider Name:ZARIA NILESH, 03/14/2025 08:15:00 AM, [address], [facility] [address], [place], [address], Progress Notes * BARB STOVALLOB:1970 (6 3 yo F)Acc No.[id number]:12/29/2024 Progress Notes Patient:??ETHAN STOVALLN Provider:??ZARIA GALLOWAY NP :1970?Age:54 Y?Sex:Fe male Date:12/29/2024 Address:[place], [id number] Subjective: * Chief Complaints: * ?1. Pt here for new pt visit to establish care for pcp.. * HPI: ?Constitutional:? Patient is here today for New patient visit and primary care establishment ?Patient seen and examined. ? Full past medical history, social history, family history, ?allergies and current medications were reviewed and updated. ?Body composition analysis reviewed today ?#Weight Management ?12/29/2024 ?Patient is a dual weight management and primary care patient of our practice ?Comprehensive labs reviewed, discussed lipids as well as subclinical TSH ?Updated thyroid function as of yesterday December 28, 2024 ?TSH within normal limits at 0.83 ?Total T4, also normal at 6.6 ?At target goal weight ?Patient unfortunately has been off of her weight loss medications for a month now ?She went to [facility] load and unload her most recent prescription and was told it was a $400 co-pay ?Not surprisingly she has gained some weight and her appetite has revved up ?was on 2.4mg Wegovy weekly maintenance ?Significant family history of cardiovascular disease ?Her sister has significant carotid plaque ?Father had HI ?Her LDL is in the 170s ?She needs a statin definitively ?We also discussed coronary calcium CT ?was scheduled to have Spinal surgery L3-L5, candice placement, postural correction ?with [facility]ada on 08/31/2024 ? this is STILL on hold for insurance authorization ?MRI of the lumbar spine without February 2024 ordered by neurosurgery ?L5-S1 anterior fusion ?No spinal or foraminal stenosis ?Moderate levoscoliosis with degenerative changes of the endplates and facet joint ?Sx- hx- bariatric sx (sleeve) ?Denies any [...] [facility] ?Flu 2023: Yes ?COVID mRNA: x3 ?Menopausal: LMP was 3 years ago. 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 ?Highest weight: 270 lbs [...] 1 tablet Orally Once a day , Discontinued Wegovy 2.4 MG/0.75ML Solution Auto-injector USE TO INJECT 2.4MG INTO THE SKIN ONCE WEEKLY 28 DAYS , Medication List reviewed and reconciled with the patient * Allergies:??Penicillin, Code ine. Objective: * Vitals:??HR:82/min, BP:118/7 6mm Hg, Wt:165lbs, BMI:29.23Index, Ht: 63 in, Oxygen [...] E78.5??6.??Levoscoliosis of lumbar spine - M41.86??7.??Post-menopausal - Z78.0??8.??Encounter for screening for osteoporosis - Z13.820?? Acute Concerns/Problem List: 12/29/2024 Labs reviewed Normal [...] software and direct typing Please excuse inadvertent violin teacher or typing errors, or uncorrected word substitutions Although every attempt has been made by the provider to proofread this document, occasional misspellings and typographical errors may still be present Due to the previous pandemic, and the use of personal protective equipment (PPE) This may decrease voice recognition accuracy Inadvertent violin teacher errors may occur. Plan: * Treatment: * Imaging:?? * ?Imaging: Bone Dens ity * Images: Billing Information: * Visit Code:?? 31013 Office Visit, Est Pt., Level 4. Modifiers: 25, SA * Procedure Codes:?? * Sign off status: Completed true * Provider:??ZARIA GALLOWAY NP Date:??03/0 02/2025 History and Physical Notes * HPI (History of Present Illness) Category Sub-Category Detail Notes Category Not es Constitutional Patient is here today for New patient visit and primary care establishment Patient seen and examined. Full past medical history, social history, family history, allergies and current medications were reviewed and updated. Body composition analysis reviewed today #Weight Management 12/29/2024 Patient is a dual weight management and primary care patient of our practice Comprehensive labs reviewed, discussed lipids as well as subclinical TSH Updated thyroid function as of yesterday December 28, 2024 TSH within normal limits at 0.83 Total T4, also normal at 6.6 At target goal weight Patient unfortunately has been off of her weight loss medications for a month now She went to [facility] load and unload her most recent prescription and was told it was a $400 co-pay Not surprisingly she has gained some weight and her appetite has revved up was on 2.4mg Wegovy weekly maintenance Significant family history of cardiovascular disease Her sister has significant carotid plaque Father had HI Her LDL is in the 170s She needs a statin definitively We also discussed coronary calcium CT was scheduled to have Spinal surgery L3-L5, candice [facility] this is STILL on hold for insurance authorization MRI of the lumbar spine without February 2024 ordered by neurosurgery L5-S1 anterior fusion No spinal or foraminal stenosis Moderate levoscoliosis with degenerative changes of the endplates and facet joint Sx- hx- bariatric sx (sleeve) Denies any [...] Aquino Shingrix: None yet, will go to [employer] Flu 2023: Yes COVID mRNA: x3 Menopausal: LMP was 3 years ago. 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 Highest weight: 270 lbs [...] General Examination GENERAL APPEARANCE: in no ac tetlin distress, well developed, well nourished HEAD: normocephalic, [...]
--- OUTSIDE RECORDS SUMMARY | 2025-02-15 09:42 | XMS_ITS | Clinical Summary ---
Author Organization [address] Address [address] [place] [address] Phone Care Team Providers Care Subscription Agent Name Role Phone Maria Luisa Perez MD Primary Care Provider [phone] Allergies Active Allergy Reactions Criticality Noted Date Comments Codeine Nausea And Vomiting 12/13/2005 Penicillin V Potassium 12/13/2005 Medications mv,Ca,min-iron [id number] 1 mg iron-66.7 mcg-1,000 mcg tablet Take [...] Lipoma of skin and subcutaneous tissue 6 Encounters Date Type Department Care Team Description 01/21/2025 10:21 AM EDT - 01/21/2025 11:59 PM EDT Hospital Encounter [facility] Bone Density [address] [place] [address] Encounter for screening for osteoporosis Discharge Disposition: Home or Self Care from Last 3 Months Immunizations Name Administration Dates Next Due Influenza [...] of 2) 2021 COVID-19 Vaccine (4 - season) 2024 11/28/2021, 11/06/2020, 10/17/2020 Influenza Vaccine (Season Ended) 2025 08/12/2023, 08/14/2021, 07/26/2020, Additional history exists Hypertension/CHF/CAD Annual BMP Blood Test 11/10/2025 11/10/2024, 07/23/2023 Breast Cancer Screening 05/12/2026 05/12/20 24, 04/10/2023, 04/09/2022, Additional history exists Cervical Cancer Screening: Pap Smear 09/09/2027 09/09/2024, 03/27/2022 Cholesterol Screening (Lipid Panel) 11/10/2029 11/10/2024, 07/23/2023 Colorectal Cancer Screening: Colonoscopy 07/23/2032 07/23/2022 Osteoporosis Screening (Bone Density Screening) 01/21/2035 01/21/2025, 01/21/2025 HIB Vaccines Aged Out No longer eligi [...] age to complete this topic Meningococcal B Vaccine Aged Out No l onger eligible based on patient's age to complete [...] Procedure Name Priority Date/Time Associated Diagnosis Comments BD BONE DENSITY DXA AXIAL SKELETON Routine 01/21/2025 10:40 AM EDT Encounter for screening for osteoporosis EXTERNAL DEXA REPORT 01/21/2025 THYROID STIMULATING HORMONE Routine 12/28/2024 10:01 AM EST Myxedema heart disease THYROXINE TOTAL Routine 12/28/2024 10:01 AM EST Hypothyroidism, unspecified type COMPREHENSIVE METABOLIC PANEL Routine 11/10/2024 7:58 AM [...] Recently Relevant to Health Maintenance Results * BD Bone Density DXA Axial Skeleton (01/21/2025 10:40 AM EDT) Anatomical Region Laterality Modality Wrist, Hip, L-spine Bone Densito metry 01/21/2025 10:4 3 AM EDT Impressions 01/21/2025 10:44 AM EDT 1. There is no evidence of osteoporosis or osteopenia. 2. FRAX analysis yields a 10-year probability of major osteoporotic fracture of 2.5% and a 10-year probability of hip fracture of 0.0%. Code 78594 -------- FINAL REPORT -------- Dictated By: Phillip Lane Dictated Date: 01/21/2025 10:43 ET Assigned Physician: Phillip Lane Reviewed and Electronically Signed By: Phillip Lane Signed Date: 01/21/2025 10:44 ET Workstation ID: [id number] Transcribed By: Self Edit Transcribed Date: 01/21/2025 10:43 ET Narrative 01/21/2025 10:44 AM EDT HISTORY: ??The patient is a 54-year-old postmenopausal female with clinical concern for metabolic bone disease. FINDINGS: ??Dual energy x-ray absorptiometry of the lumbar spine and femurs is performed. The mean bone mineral density at L1-L4 is 1.266 gm/cm2 which is 108% of that of young normals and 111% of that of age matched controls. This yields a T- score of 0.8 and a Z-score of 1.1 and there is therefore no evidence of osteoporosis or osteopenia here. The mean bone mineral density of the femurs bilaterally is 1.029 gm/cm2 which is 102% of that of young normals and 106% of that of age matched controls. ??This yields a T-score of 0.2 and a Z-score of 0.5 and there is therefore no evidence of osteoporosis or osteopenia here. Procedure Note Phillip Lane MD - 01/21/2025 HISTORY: The patient is a 54-year-old postmenopausal female with clinicalconcern for metabolic bone disease. FINDINGS: Dual energy x-ray absorptiometry of the lumbar spine and femursis performed. The mean bone mineral density at L1-L4 is 1.266 gm/cm2 whichis 108% of that of young normals and 111% of that of age matched controls.This yields a T- score of 0.8 and a Z-score of 1.1 and there is thereforeno evidence of osteoporosis or osteopenia here. The mean bone mineral density of the femurs bilaterally is 1.029 gm/nm1nuwzq is 102% of that of young normals and 106% of that of age matchedcontrols. This yields a T-score of 0.2 and a Z-score of 0.5 and there istherefore no evidence of osteoporosis or osteopenia here. IMPRESSION: 1. There is no evidence of osteoporosis or osteopenia. 2. FRAX analysis yields a 10-year probability of major osteoporoticfracture of 2.5% and a 10-year probability of hip fracture of 0.0%. Code 76135 -------- FINAL REPORT -------- Dictated By: Phillip Lane Dictated Date: 01/21/2025 10:43 ET Assigned Physician: Phillip Lane Reviewed and Electronically Signed By: Phillip Lane Signed Date: 01/21/2025 10:44 ET Workstation ID: [id number] Transcribed By: Self Edit Transcribed Date: 01/21/2025 10:43 ET Elidia Cadena [employer] TE[employer]ER[employer] ASSISTANT IMG DXA PROCEDURES Final Resu lt * External Dexa Report (01/21/2025) Anatomical Region Laterality Modality Bone Densitometr y Provider [facility] IMG DXA PROCEDURES Final Result * Thyroid stimulating hormone (12/28/2024 10:01 AM EST) TSH 0.83 0.40 - 4.00 mcIU/mL LAB CHEMISTRY METHOD 12/28/2024 11:24 AM EST [facility] Blood Venous blood specimen / Unknown Venipuncture / Unknown 12/28/2024 10:01 AM EST 12/28/2024 10:38 AM EST Elidia Cadena NP LAB BLOOD ORDERABLES Final Re sult Performing Organization Address [facility] de Phone Number [facility] [address] [place] [address], * T4 (12/28/2024 10:01 AM EST) T4, Total 6.6 4.5 - 10.9 mcg/dL LAB CHEMISTRY METHOD 12/28/2024 11:23 AM EST [facility] Blood Venous blood specimen / Unknown Venipuncture / Unknown 12/28/2024 10:01 AM EST 12/28/2024 10:38 AM EST Elidia Cadena NP LAB BLOOD ORDERABLES Final Re sult [facility] [address] [place] [address], [place] [phone] * (ABNORMAL) Lipid panel with reflex to direct LDL (11/10/2024 7:58 AM EST) Cholesterol 254(H) 0 - 200 mg/dL LAB CHEMISTRY METHOD 11/10/2024 10:05 AM EST [facility] Triglycerides 92 0 - 150 mg/dL LAB CHEMISTRY METHOD 11/10/2024 10:05 AM [facility] HDL 59 >=40 mg/dL LAB CHEMISTRY METHOD 11/10/2024 10:05 AM [facility] LDL Calculated 177(H) 0 - 100 mg/dL LAB CHEMISTRY METHOD 11/10/2024 10:05 AM [facility] VLDL Cholesterol Elliot 18.4 mg/dL LAB CHEMISTRY METHOD 11/10/2024 10:05 AM [facility] Non HDL Chol. (LDL+VLDL) 195(H) <145 mg/dL LAB CHEMISTRY METHOD 11/10/2024 10:05 AM EST [facility] Chol/HDL Ratio 4.3 0.0 - 4.4 LAB CHEMISTRY METHOD 11/10/2024 10:05 AM [facility] Blood Venous blood specimen / Unknown Venipuncture / Unknown 11/10/2024 7:58 AM EST 11/10/2024 8:54 AM EST us Elidia Cadena [employer]CHO[employer] TE[employer]ER'S ASSISTANT LAB BLOOD ORDERABLES Final Re sult [facility] [address] [place] [address], [place] [phone] * Comprehensive metabolic panel (11/10/2024 7:58 AM EST) Sodium 139 133 - 145 mmol/L LAB CHEMISTRY METHOD 11/10/2024 10:05 AM [facility] Potassium 4.0 3.5 - 5.5 mmol/L LAB CHEMISTRY METHOD 11/10/2024 10:05 AM [facility] Chloride 106 96 - 110 mmol/L LAB CHEMISTRY METHOD 11/10/2024 10:05 AM [facility] CO2 26 21 - 32 mmol/L LAB CHEMISTRY METHOD 11/10/2024 10:05 AM [facility] Anion Gap 7 3 - 11 LAB CHEMISTRY METHOD 11/10/2024 10:05 AM [facility] Glucose 76 70 - 100 mg/dL LAB CHEMISTRY METHOD 11/10/2024 10:05 AM [facility] BUN 13 5 - 25 mg/dL LAB CHEMISTRY METHOD 11/10/2024 10:05 AM [facility] Creatinine 0.54 0.50 - 1.10 mg/dL LAB CHEMISTRY METHOD 11/10/2024 10:05 AM [facility] eGFR 110 >=60 mL/min/1. 73m2 LAB CHEMISTRY METHOD 11/10/2024 10:05 AM [facility] Comment:Calculation based on the??Chronic Kidney Disease Epidemiology Collaboration (CKD-EPI) equation refit??without adjustment for race. BUN/Creatinine Ratio 24.1 LAB CHEMISTRY METHOD 11/10/2024 10:05 AM [facility] Calcium 9.3 8.5 - 10.5 mg/dL LAB CHEMISTRY METHOD 11/10/2024 10:05 AM [facility] AST (SGOT) 14 10 - 42 unit/L LAB CHEMISTRY METHOD 11/10/2024 10:05 AM [facility] ALT (SGPT) 23 10 - 60 unit/L LAB CHEMISTRY METHOD 11/10/2024 10:05 AM [facility] Alkaline Phosphatase 50 42 - 121 unit/L LAB CHEMISTRY METHOD 11/10/2024 10:05 AM [facility] Total Protein 7.5 6.0 - 8.0 g/dL LAB CHEMISTRY METHOD 11/10/2024 10:05 AM [facility] Albumin 3.9 3.2 - 5.0 g/dL LAB CHEMISTRY METHOD 11/10/2024 10:05 AM [facility] Total Bilirubin 0.7 0.0 - 1.4 mg/dL LAB CHEMISTRY METHOD 11/10/2024 10:05 AM [facility] Blood Venous blood specimen / Unknown Venipuncture / Unknown 11/10/2024 7:58 AM EST 11/10/2024 8:54 AM EST us Elidia Cadena NP LAB BLOOD ORDERABLES Final Re sult [facility] [address] [place] [id number], * Pap smear (09/09/2024 12:00 AM EST) Interpretation Negative for intraepithelial lesion or malignancy 09/14/2024 9:29 AM [facility] General Categorization Negative 09/14/2024 9:29 [...] screening system. Technical cytopathology services provided by [facility], at [address] [place] [id number] (CLIA # [id number]/Dano Dukes MD, Briar Cutter.) 09/14/2024 9:29 AM [facility] Console Pap Interpretation Reported 09/14/2024 9:29 AM EST [facility] Brushing/Spatula Cervix uteri structure / Unknown 09/09/2024 09/09/2024 3:30 PM EST us Deniz Jones MD LAB CYTOLOGY ORDERABLES Final Result [facility] [address] [place] [address], * CAR SCREENING DIGITAL (05/12/2024 3:17 PM EDT) Anatomical Region Laterality Modality Mammography 05/12/2024 10:0 4 AM EDT Narrative 05/12/2024 3:17 PM EDT [facility] Diagnostic Imaging Department [address] [place] [address] Patient: ??GENIE STOVALL ?/Age/Sex: 1970 - 53 - F Unit#: ??[id number] ? Location/Status: ??SPDIMAM/REG CLI ? Mnemonic/Ordering Site: ??DIGSC/SPMAM Ordering Physician: ??MARIA LUISA PEREZ MD Car Screening Digital - 05/12/24 - 1027 Report Status:Signed EXAM: Car Screening Digital EXAM DATE AND TIME: 05/12/2024 10:27 AM HISTORY: ??Screening. Paternal aunt had breast carcinoma. COMPARISON: ??04/10/23, 04/09/22, 04/06/21 TECHNIQUE: Bilateral digital breast tomosynthesis was performed in the CC and MLO projections. Computer aided detection with [employer] 3D 3.1 was employed. TISSUE DENSITY: a. [...] Signed by: ??KAY CROSS MD Dic Date/Time: ??05/12/24 1515 Sign date/Time: ??05/12/24 1517 Procedure Note Kay Cross MD - 08/11/2024 [facility] Diagnostic Imaging Department [address] [place], [place] [id number] Patient: GENIE STOVALL.O.B./Age/Sex: 1970 - 53 - F Unit#: [id number] Location/Status: SPDIMA/REG CLI Mnemonic/Ordering Site: [facility] Ordering Physician: MARIA LUISA PEREZ MD [facility] Screening Digital - 05/12/24 - 1027 Report Status:Signed EXAM: [facility] Screening Digital EXAM DATE AND TIME: 05/12/2024 10:27 AM HISTORY: Screening. Paternal aunt had breast carcinoma. COMPARISON: 04/10/23, 04/09/22, 04/06/21 TECHNIQUE: Bilateral digital breast tomosynthesis was performed in the CCand MLO projections. Computer aided detection with [employer] 3D 3.1was employed. TISSUE DENSITY: a. The [...] Signed by: KAY CROSS MD Dic Date/Time: 05/12/24 1515 Sign date/Time: 05/12/24 151 Maria Luisa Perez MD IMG BI PROCEDURES Final Result * Colonoscopy (07/23/2022) Colonoscopy Negative Anatomical Region Laterality Modality Other Historical Provider HEALTH MAINTENANCE Final Result from Last 3 Months or Most Recently Relevant to Health Maintenance Insurance [employer] Care Teams Subscription Agent Relationship Specialty Start Date End Date Maria Luisa Perez MD [address] [address] PCP - General Internal Medicine 11/10/24
--- NOTE | 2025-02-15 10:23 | MHC.SHP ---
Pre-Procedural Eval Section A - 24 Hr Update-Section A only Date of Service: 02/15/25 The patient is an INPATIENT: No Changes since office visit: No Cold of Flu in the past 2 weeks, No New Medical Problems, No Changes in Medication and No Patient answered all questions The patient has been examined within 24 hours of the surgical procedure. The History & Physical has been completed within 30 days and I have reviewed it.: No Section B - Complete if H&P > 30 days Chief Complaint: s/p L3-5 OLIF Allergies: Allergies Allergy/AdvReac Type Severity Reaction Status Date / Time codeine Allergy Vomiting Verified 02/15/25 09:16 Penicillins Allergy Swelling, Verified 02/15/25 09:16 vomitting Review of Systems Sugical H&P ROS: Negative: Constitution, Cardiovascular, Respiratory, Neurological, Psychiatric, Hem-Onc, Allergic/Immunologic, Gastrointestinal, Genitourinary, Musculoskeletal, Integumentary, Endocrine and Eyes/Ears/Nose/Throat Exam Surgical H&P Exam: Normal: HEENT, Normal: Heart, Normal: Lungs, Normal: Extremities, Normal: Abdomen, Normal: Skin and Normal: Neurological (awake, alert,oriented x 3) Plan Diagnosis/Plan: Unchanged L3-4, L4-5 Oblique lumbar interbody fusion, L2-3 transkambin interbody fusion Time Spent With Patient Time: Total time managing care of this patient today _6___ minutes.
--- NOTE | 2025-02-15 16:25 | P.OP_ITS ---
Operative Note Operative Note Date of Service: 02/15/25 Narrative: Preop Diagnosis: 1.) Lumbar degenerative scoliosis Procedure: 1) L2-3, L3-4 and L4-5 discectomy, arthrodesis and implantation cage through an anterolateral, retroperitoneal approach 2) L2-L5 posterior instrumented fusion 3) Allograft 4) Injection of 10 cc of Exparel at the transverse process for a muscular erector spinae block and additional Exparel in paravertebral tissue for postop management Consent Informed Consent was obtained for this operation. I have explained the nature, purpose and benefits of the operation. I have discussed the risks and benefit of the operation including possible complications or adverse events with patient/family. Alternative(s) were discussed with the patient with their relative benefits and risks as well as the consequences of not accepting the operation were included in obtaining consent. Surgeon: BOB MCWILLIAMS MD, PHD Procedure Assisted By: katty Villeda Description of Procedure This patient is status post L5-S1 anterior lumbar interbody fusion in the past in another institution. She presented with intractable low back pain. Imaging reviews a lumbar degenerative scoliosis with the apex at L2-3.; L3-4 lateral listhesis and severe degenerative disc disease L4-5. The patient was offered a 3 level oblique lumbar interbody fusion L2-L5 to correct the degenerative scoliosis. The procedure and complications were explained. The patient was consented. The patient was brought to the operating room and endotracheally intubated. The patient was turned in a lateral position with the left side up. Prep and drape was done followed by timeout. A small incision was made in the left lower abdominal quadrant. The muscle fascia was opened after which the 3 muscle layer was split to enter the retroperitoneal space. Dilators were docked in the anterior one third of the L4-5 disc space followed by a retractor. The retractor was opened. The L4-5 disc space was exposed. An annulotomy was done after which an elevator Mckinley was used to release the disc material from its endplates and to perforate the contralateral side. A partial discectomy was done. An 8 mm and 10 mm height trial implant was inserted. The discectomy was completed. The endplates were prepared. An 10 x 45 mm with 6 degree lordosis 4 web cage filled with allograft was inserted into the disc space under fluoroscopic guidance. Then attention was turned to the L3-4 level where similar procedure was done. When the diskectomy was completed and the endplates were prepared a 10 x 45 and 0 degree lordosis 4 web cage filled with allograft was inserted into this disc space on fluoroscopic guidance. The final level was L2-3. The retractor was moved up to the L2-3 region. Annulotomy was done. The disc was released from its endplate with an elevator Mckinley. A diskectomy was done followed by endplate preparation. Again, a 10 mm x 45 mm and 0 degree lordosis cage filled with allograft was inserted into the disc space. The retractor was removed. Hemostasis was done. The incision was closed in 2 layers. Steri-Strips used to approximate incision. An OpSite with Tegaderm was used to cover the incision. This marked first part of the procedure. The patient was turned prone on the Colby spine table. 2C arms were installed for fluoroscopy. Prep and drape was done followed by a second timeout. Injection of 10 cc of Exparel at the bilateral L3 transverse processi for a muscular e angelina spinae block. Paramedian incisions were made lateral from the L2, L3, L4 and L5 pedicles. The muscle fascia was opened after which the muscle layer was split bluntly to expose the posterolateral gutter. The following steps were taken. A pediguard tap was used to create a transpedicular trajectory into the vertebral body. A K wire was placed. A specially designed instrument was advanced over the K wire to decorticate the posterolateral gutter in preparation for the posterolateral fusion. A pedicle screw was advanced over the K wire and the K wire was removed. The steps were done for the bilateral L2-L5 pedicles. A total of 8 screws of CTL [employer] were placed with a diameter of 6.5 x 45 mm. Pedicle screws were connected with 120 mm candice on the left side and a 110 mm candice on the right side and locked down with locking caps. The extension towers were removed. The posterolateral gutter was filled with allograft to complete the posterolateral L2-L5 fusion. Hemostasis was done and the incision was closed in 2 layers. Steri-Strips were used to approximate the incision. An OpSite with tegaderm was used to cover the incision. All sponge and needle counts were correct. Patient was extubated and transferred in stable is to recovery room. Overall, the anatomy was challenging for the anterior and posterior parts with significantly added to the operative time. Especially the pedicle screws were challenging due to the deformity. Anesthesia: General Estimated Blood Loss (ml): 200 Duration of Surgery: 5 hours Complications: None Postoperative Plan: Admit to inpatient for clinical observation
[2025-02-15] MEDS: Acetaminophen 1,000 MG/100 ML PIGGYBACK 400 MG IV ×2 (17:58→23:58)
--- NOTE | 2025-02-15 18:25 | PHA.MEDREC ---
Addendum entered by [facility] located [facility] 02/15/25 20:22: med rec reviewed Original Note: Pharmacy Consult ? Medication Reconciliation Pharmacy has reviewed the medication reconciliation done by nursing.
[2025-02-15] MEDS: 0.9 % Sodium Chloride 1,000 ML 75 ML IVCONT (18:28)
[2025-02-15] MEDS: HYDROmorphone HCl 1 MG/ML SYRINGE IVPUSH (18:42)
[2025-02-15] MEDS: Docusate Sodium 100 MG CAPSULE PO (20:39)
[2025-02-15] MEDS: ondansetron HCL 4 MG/2 ML VIAL IVPUSH (22:52)
[2025-02-15] MEDS: Ketorolac Tromethamine 15 MG/ML VIAL IVPUSH (22:54)
[2025-02-16] MEDS: Ketorolac Tromethamine 15 MG/ML VIAL IVPUSH ×2 (04:47→10:36)
[2025-02-16] MEDS: Acetaminophen 1,000 MG/100 ML PIGGYBACK 400 MG IV (05:31)
[2025-02-16] MEDS: 0.9 % Sodium Chloride 1,000 ML 75 ML IVCONT (05:31)
[2025-02-16 06:00] VITALS: BP 112/58; PULSE 89; RESP 16; TEMP 37.1; O2SAT 100
--- NOTE | 2025-02-16 07:03 | HO.NEUROPN_ITS ---
Neurosurgery Operative Note Date of Service: 02/16/25 Narrative: POD: 1 Procedure: L2-5 OLIF Morning rounds: Genie is a pleasant 54-year-old female who underwent L2-[address] Dash. She was seen this morning for postoperative evaluation. She reports she is up OOB, walking around is otherwise doing well. She continues to report the intractable low back pain that she had prior to surgery. Thankfully despite this she was able to get up and ambulate with physical therapy this morning and complete stairs. Ferguson was removed this morning & she is tolerating her current diet. Late morning / afternoon rounds: Genie was seen again later in the day to evaluate progress with pain control. She reports that her pain feels much better than it did this morning, and she requested to be discharged home. Afebrile, vital signs stable. Full strength 5/5 LE's. Back dressings have some staining without signs of hematoma. No active sanguineous drainage. Area is dry. Plan: Meera 54-year-old female who underwent L2-[address] Dash. After visiting her for the 2nd time today she reports that her pain is much better controlled and requested to be discharged home. We discussed postoperative pain control, wound care, and restrictions. I reviewed her x-ray imaging which shows stable placement posterior instrumentation. Patient meets criteria to be medically discharged home. I will send in a prescription for oxycodone to the pharmacy here at [facility]. I provided her with a paper prescription for a front wheeled walker. Dallin Dash MD,PhD [facility]
--- NOTE | 2025-02-16 07:05 | PM.DS ---
DS: Providers Provider Date of Service: 02/16/25 Date of admission: 02/15/25 08:59 Date of discharge: 02/16/25 Primary care physician: Unknown Physician DS: Summary Time Attestation Discharge Coordination Time (in mins): 12 Quality: Safe Use of Opioids Does Pt have an Active Cancer Diagnosis on the Problem List?: No Quality: Stroke Does the patient have a stroke diagnosis?: No Physical Exam Vital Signs: Vital Signs: Last Vital Signs Temp 98.8 F 02/16/25 06:00 Pulse 89 02/16/25 06:00 Resp 16 02/16/25 06:00 BP 112/58 L 02/16/25 06:00 Pulse Ox 100 02/16/25 06:00 O2 Del Method Nasal Cannula 02/16/25 06:00 O2 Flow Rate 0.5 02/16/25 06:00 BMI result Body Mass Index 32.6 Discharge Plan Discharge Anticipated Discharge Date/Time: 02/16/25 07:05 Patient Disposition: Home, Self-Care Discharge Diagnosis: s/p L2-5 OLIF Referrals: Physician,Unknown J [Primary Care Provider] - 1 Week Discharge Medications: New oxycodone 5 mg tablet See Rx Instructions .ROUTE .COMPLEX PRN (Reason: pain) Qty: 30 0RF Rx Instructions: Take 1-2 tablets by mouth every 4 hours as needed for pain. Partial Fill upon patient request. Continued multivitamin Tablet 1 tab PO DAILY atorvastatin 40 mg tablet 40 mg PO DAILY biotin 10,000 mcg Capsule 10,000 mcg PO DAILY Wegovy 2.4 mg/0.75 mL pen injector 2.4 mg SUBCUT FR Discharge Orders: Discharge Order (Routine); Ordered 02/16/25 Ordered By: Dallin Pate Diet: Advance to usual diet Activity on Discharge: As tolerated Stand Alone Forms: Patient Portal Discharge page Print Language: Urdu Activity Restrictions/Additional Instructions: After your spinal surgery we ask you to observe the following restrictions/guidelines: Activity: It is normal to feel some discomfort as you increase your activity, but that will improve with time. We ask you avoid heavy lifting or acitivities that cause pain. As a general rule, 8lbs is a safe limit for lifting right after surgery. Walk as much as you feel comfortable but not to exhaustion. You will feel extra tired the first few days after surgery. Stay well hydrated. It is OK to walk up and down stairs You may return to driving when you are off narcotics (such as vicodin, oxycodone, dilaudid, etc), and you are back to normal functional capacity. If you have any concerns please check with office before driving. Return to work is specific to each patient and each surgery, so please speak with your doctor/PA at first follow up. Please bring paperwork such as FMLA at that time if you need it filled out. Medications: We recommend you take 1,000mg Tylenol every 8 hours for the first few weeks after surgery, if you do not have any liver issues and can tolerate this medication. Do not exceed 4,000mg daily. We will give you a short supply of narcotics after surgery (usually one weeks worth). If you need more please call the office but do not use more than prescribed. You will need to give our office 48 hours notice if you need narcotics refilled and we do not fill narcotics on weekends or evenings. If you are on a narcotic, it is a good idea to take a stool softener such as colace or senna to avoid constipation If you take blood thinner such as aspirin, Plavix, Coumadin, Effient, Eliquis etc for conditions such as Afib, DVT, Pulmonary embolus, coronary disease, stents etc please speak with your surgeon about specific details as to when you can resume these medications. You can resume NSAIDs on post op day 1 (eg: Motrin, Naproxen, etc). Follow up: Please call the office, , after surgery to arrange a 3 week follow up for wound check. Wound Care: You may remove your dressing on the first day after surgery. ?You may ?leave open to air. Please do not remove the steri strips underneath. they will fall off on their own in one week. IT IS NORMAL FOR THE WOUND TO OOZE OR BE BLOODY FOR A FEW DAYS AFTER SURGERY. ?IF THIS HAPPENS JUST PLACE NEW DRESSING OVER IT TO AVOID STAINING CLOTHES. You may shower on post op day # 1 We ask that you do not let the water soak the wound. If it does get wet, just towel dry lightly. Please do not scrub your incision or place any type of chemical/ointment on the wound. No tub baths, pools or jacuzzis for one month. If you have any leaking or redness from your wound, or fevers, please call the office. Care Plan Goals: Return to normal activity as tolerated Health Concerns: None Plan of Treatment: Follow-up in clinic in 2-3 weeks. Assessment: POD: 1 Procedure: L2-5 OLIF Morning rounds: Genie is a pleasant 54-year-old female who underwent L2-[address] Dash. She was seen this morning for postoperative evaluation. She reports she is up OOB, walking around is otherwise doing well. She continues to report the intractable low back pain that she had prior to surgery. Thankfully despite this she was able to get up and ambulate with physical therapy this morning and complete stairs. Ferguson was removed this morning & she is tolerating her current diet. Late morning / afternoon rounds: Genie was seen again later in the day to evaluate progress with pain control. She reports that her pain feels much better than it did this morning, and she requested to be discharged home. Afebrile, vital signs stable. Full strength 5/5 LE's. Back dressings have some staining without signs of hematoma. No active sanguineous drainage. Area is dry. Plan: Meera 54-year-old female who underwent L2-[address] Dash. After visiting her for the 2nd time today she reports that her pain is much better controlled and requested to be discharged home. We discussed postoperative pain control, wound care, and restrictions. I reviewed her x-ray imaging which shows stable placement posterior instrumentation. Patient meets criteria to be medically discharged home. I will send in a prescription for oxycodone to the pharmacy here at [facility]. I provided her with a paper prescription for a front wheeled walker. Dallin Dash MD,PhD [facility]
[2025-02-16] MEDS: ondansetron HCL 4 MG/2 ML VIAL IVPUSH (07:17)
[2025-02-16 07:36] VITALS: BP 108/67; PULSE 87; RESP 16; TEMP 36.8; O2SAT 95
[2025-02-16 07:39] VITALS: BP 108/67; PULSE 87; O2SAT 93
--- NOTE | 2025-02-16 07:43 | HO.POSTANES ---
Post Anesthesia Evaluation Post Anesthesia Evaluation Date of Service: 02/16/25 Vital Signs: Vital Signs Temp Pulse Resp BP Pulse Ox O2 Del Method O2 Flow Rate 02/16/25 07:36 98.3 F 87 16 108/67 95 Room Air 02/16/25 06:00 98.8 F 89 16 112/58 L 100 Nasal Cannula 0.5 02/15/25 21:45 97.0 F 99 16 135/78 100 Nasal Cannula 0.5 Anesthesia: General Endotracheal-GETA Mental Status: Awake Pain Control: Satisfactory Nausea/Vomiting: None Hydration: Adequate Anesthesia-Related Issues: No Anes. Related Issues
[2025-02-16] MEDS: Atorvastatin Calcium 40 MG TABLET PO (08:02)
[2025-02-16] MEDS: Docusate Sodium 100 MG CAPSULE PO (08:02)
[2025-02-16] MEDS: Multivitamin TABLET 1 TAB PO (08:02)
[2025-02-16] MEDS: HYDROmorphone HCl 2 MG TABLET PO (08:02)
--- NOTE | 2025-02-16 09:41 | MHC.CM.PN ---
Addendum entered by Sabine Randle 02/16/25 11:39: DP: PT HAS BEEN MEDICALLY CLEARED FOR DC HOME, NO SERVICES. PT'S FAMILY WILL TRANSPORT Original Note: CM MET WITH PT AT BEDSIDE. PT IS FUNCTIONALLY INDEP AND EMPLOYED F/T. NO SERVICES OR DME. + HCP (COPY AT HOME) PCP DP: HOME, NO SERVICES IS THE GOAL. FAMILY WILL TRANSPORT HOME.
== END 2025-02-16 11:56 | disposition home or self-care (01) | DRG 458 ==
LOC: HO.SSSA 12:46 → HO.S3 17:50
PROVIDERS: Nurse Practitioner; Admitting Provider Neurological Surgery; PCP Internal Medicine; Visit Provider Neurological Surgery
PROC: 0SG10A0 Fusion of 2 or more Lumbar Vertebral Joints with Interbody Fusion Device, Anterior Approach, Anterior Column, Open Approach (ICD-10-PCS; principal; 2025-02-15 11:30)
DX: M51.369 Other intervertebral disc degeneration, lumbar region without mention of lumbar back pain or lower extremity pain (principal); M41.56 Other secondary scoliosis, lumbar region; Z79.85 Long-term (current) use of injectable non-insulin antidiabetic drugs; Z79.899 Other long term (current) drug therapy
CPT/HCPCS: 36415; 72100; 80048; 85027; 86850; 86900; 86901; 97161; C1713; C1889; J0131; J0665; J0666; J1100; J1171; J1885; J2003; J2405; J2704; J3010; J3370; L8699

== ENCOUNTER → 2025-02-15 08:59 | Outpatient (BNV) | payer OTHER, SELFPAY | PROVIDERS: Admitting Provider Neurological Surgery; Visit Provider Neurological Surgery | DX: M41.26 Other idiopathic scoliosis, lumbar region (principal) | CPT/HCPCS: 20930; 22558; 22585; 22612; 22614; 22842; 22853; 99024; 99499 ==

== ENCOUNTER 2025-03-08 14:05 | Outpatient (AMB) | payer OTHER, SELFPAY ==
--- NOTE | 2025-03-08 14:07 | A.SPINEOV_ITS ---
Intake Visit Reasons: 1st post op Intake Note: Ms. Ortiz is here today for her 1st post op appointment. Fitness/Wellness Director Required: No Allergies codeine Allergy (Verified 03/08/25 14:07) Vomiting Penicillins Allergy (Verified 03/08/25 14:07) Swelling, vomitting Assessment & Plan Assessment & Plan (1) S/P lumbar spinal fusion: Code(s): Z98.1 - Arthrodesis status Category: Surgical Plan Diana is a pleasant 54 year old female who comes in today for her 1st postoperative visit after having L2-3, L3-4 and L4-[address] Dash a few weeks ago. She reports that overall she has been doing very well since the surgery. She has been struggling to get a good night's sleep as she does not have any more for pain medication. She does report that she has continued to have some low back pain and some feeling of paresthesia over her left anterior thigh near her OLIF incision site. She also has some pains in this area. We discussed how this is likely a result of the surgical approach, and should self resolve on its own. She asked several questions regarding the postoperative healing course, all of which I answered to the best of my ability. No new neurological deficits. The patient ambulates well and rises from seated position without difficulty. She does not use any assistive devices. Her lateral and posterior incision sites are closed and well healing with no evidence of drainage or swelling. I would like to follow up with the patient again in 6 weeks and obtain a set of x-rays for review. I will send in a short supply of oxycodone 5 mg to help her with her continued pain. Dallin Dash MD,PhD [facility] Medications: New oxycodone Partial Fill upon patient request. 5 mg PO BID PRN 14 tabs 0RF pain Discontinued oxycodone Discontinued Reason: Doctor's Order Take 1-2 tablets by mouth every 4 hours as needed for pain. Partial Fill upon patient request. 30 tabs 0RF pain Coding Level of Care Code Global (76753) Diagnoses S/P lumbar spinal fusion Z98.1
--- OUTSIDE RECORDS SUMMARY | 2025-03-08 15:17 | XMS_ITS ---
Author Organization [facility] Address [address] [place] [address] Care Team Providers Care Manager [employer] Name Role Phone ZARIA GALLOWAY Unavailable [phone] ALLERGIES Allergen (clinical drug ingredient) Drug/Non Drug [...] 12/27/2024 Encounters Encounter Location Date Provider Diagnosis [facility] [address] [address] 12/27/2024 ZARIA GALLOWAY BMI 29.0-29.9,adult Z68.29 ; [...] software and direct typing Please excuse inadvertent bend sorter or typing errors, or uncorrected word substitutions Although every attempt has been made by the provider to proofread this document, occasional misspellings and typographical errors may still be present Due to the previous pandemic, and the use of personal protective equipment (PPE) This may decrease voice recognition accuracy Inadvertent bend sorter errors may occur 12/27/2024 Overweight (BMI 25.0-29.9) [...] software and direct typing Please excuse inadvertent bend sorter or typing errors, or uncorrected word substitutions Although every attempt has been made by the provider to proofread this document, occasional misspellings and typographical errors may still be present Due to the previous pandemic, and the use of personal protective equipment (PPE) This may decrease voice recognition accuracy Inadvertent bend sorter errors may occur 12/27/2024 Dietary counseling and [...] software and direct typing Please excuse inadvertent bend sorter or typing errors, or uncorrected word substitutions Although every attempt has been made by the provider to proofread this document, occasional misspellings and typographical errors may still be present Due to the previous pandemic, and the use of personal protective equipment (PPE) This may decrease voice recognition accuracy Inadvertent bend sorter errors may occur 12/27/2024 Hypothyroidism, unspecified type [...] software and direct typing Please excuse inadvertent bend sorter or typing errors, or uncorrected word substitutions Although every attempt has been made by the provider to proofread this document, occasional misspellings and typographical errors may still be present Due to the previous pandemic, and the use of personal protective equipment (PPE) This may decrease voice recognition accuracy Inadvertent bend sorter errors may occur 12/27/2024 Dyslipidemia (ICD-10 - [...] software and direct typing Please excuse inadvertent bend sorter or typing errors, or uncorrected word substitutions Although every attempt has been made by the provider to proofread this document, occasional misspellings and typographical errors may still be present Due to the previous pandemic, and the use of personal protective equipment (PPE) This may decrease voice recognition accuracy Inadvertent bend sorter errors may occur PLAN OF TREATMENT Medication Medication Name Sig Start Date Stop Date Notes Wegovy 2.4 MG/0.75ML 2.4mg Subcutaneous weekly for 30 days 12/27/2024 Atorvastatin Calcium 40 MG 1 tablet Oral ly Once a day for 90 days 12/27/2024 Next Appt Details Provider Name:ZARIA GALLOWAY, 03/14/2025 08:15:00 AM, [address] [facility], [facility] [address], [place], [address], Progress Notes * BARB STOVALLOB:1970 (5 3 yo F)Acc No.[id number]:12/27/2024 Patient:??HEATHER STOVALL Provider:??ZARIA GALLOWAY NP :1970?Age:54 Y?Sex:Fe male Date:12/27/2024 Address:[address], [id number] Subjective: * Chief Complaints: * ?1. Pt [...] for a month now ?She went to scrap picker her most recent prescription and was told it was a $400 co-pay ?Not surprisingly she has gained some weight and her appetite has revved up ?was on 2.4mg Wegovy weekly maintenance ?Significant family history of cardiovascular disease ?Her sister has significant carotid plaque ?Father had RI ?Her LDL is in the 170s ?She [...] Maria Luisa Perez MD. 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 ?Highest weight: 270 lbs ?Lowest [...] software and direct typing Please excuse inadvertent bend sorter or typing errors, or uncorrected word substitutions Although every attempt has been made by the provider to proofread this document, occasional misspellings and typographical errors may still be present Due to the previous pandemic, and the use of personal protective equipment (PPE) This may decrease voice recognition accuracy Inadvertent bend sorter errors may occur. Plan: * Treatment: * Procedure Codes:??44429 P/M GENERAL OFFICE ASSOCIATE, INDIV 15 MIN * Images: Billing Information: * Visit Code:?? 48652 Office Visit, Est Pt., Level 4. Modifiers: 25, SA * Procedure Codes:?? 71696 P/M GENERAL OFFICE ASSOCIATE, INDIV 15 MIN. * Sign off status: [...] for a month now She went to [employer] pick[facility] her most recent prescription and was told it was a $400 co-pay Not surprisingly she has gained some weight and her appetite has revved up was on 2.4mg Wegovy weekly maintenance Significant family history of cardiovascular disease Her sister has significant carotid plaque Father had RI Her LDL is in the 170s She needs a statin definitively We also discussed coronary calcium CT was scheduled to have Spinal surgery L3-L5, candice placement, postural correction with [facility] @ [facility] on 08/31/2024 this is STILL on hold [...] Maria Luisa Perez MD. 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 Highest weight: 270 lbs Lowest [...]
--- OUTSIDE RECORDS SUMMARY | 2025-03-08 15:17 | XMS_ITS | Patient Health Record ---
Author Organization [facility] Address [address] [facility] [place] [address] Care Team Providers Care Coroner Name Role Phone ZARIA GALLOWAY Unavailable [phone] SULLY ISRAEL Unavailable [phone] ALLERGIES Allergen (clinical drug ingredient) Drug/Non Drug [...] 09:48:13 AM Interpretation: Performing Lab: Notes/Report: Specific [place] Urine 1.022 1.003-1.030 pH, Urine 5.0 5.0-8.0 [...] mcg/dL BD BONE DENSITY DXA AXIAL SK [facility] Reviewed date:01/21/2025 11:10:22 AM Interpretation: Performing Lab: Notes/Report: Note See Note [facility], a member of [employer] Patient Name: HEATHER STOVALL Date of : 1970 Reason for Exam: OSTEOPOROSIS Exam Date: 01/21/2025 [id number] EST Report Status: Final Ordering Provider: ZARIA [...] probability of hip fracture of 0.0%. Code 55945 -------- FINAL REPOR T -------- Dictated By: Phillip Lane Dictated Date: 01/21/2025 10:43 ET Assigned Physician: Phillip Lane Reviewed and Electronically Signed By: Phillip Lane Signed Date: 025 10:44 ET Workstation ID: [id number] Transcribed By: Self Edit Transcribed Date: 01/21/2025 [...] unspecified (E55.9) Active confirmed Vitamin D deficiency (41463087) Problem Other obesity due to excess calories (E66.09) Active confirmed 336700734 Problem Encounter for screening for lipoid disorders (Z13.220) Active confirmed Lipid screening (639062909) Problem Encounter for screening for osteoporosis (Z13.820) Active confirmed Screening for osteoporosis (648319718) Problem Adult general medical exam (Z00.00) Active confirmed Adult health examination (539933445) Problem Hypothyroidism, unspecified type (E03.9) Active confirmed Hypothyroidism (98147863) Problem Diabetes mellitus screening (Z13.1) Active confirmed Diabetes mellit us screening (229201306) Problem Body mass index [BMI] 37.0-37.9, adult (Z68.37) Active confirmed 524071939 Problem Dyslipidemia (E78.5) Active confirmed 540808752 Problem BMI 35.0-35.9,adult (Z68.35) Active confirmed 271940839 Problem BMI 31.0-31.9,adult (Z68.31) Active confirmed 168278375 Problem Overweight (BMI 25.0-29.9) (E66.3) Active confirmed Overweight (276676624) Problem Encounter for screening for endocrine disorder (Z13.29) Active confirmed Endocrine/metab ol ic screening (911916904) VITAL SIGNS Heart Rate 86 /min 01/26/2025 Oximetry 99 % 01/26/2025 Blood pressure diastolic 76 mm Hg 01/26/2025 Height 63 in 01/26/2025 Blood pressure systolic 118 mm Hg 01/26/2025 Weight 168 lbs 01/26/2025 BMI 29.76 kg/m2 01/26/2025 Encounters Encounter Location Date Provider Diagnosis [place] [id number] 08/23/2024 SULLY ISRAEL [place] [address] 09/20/2024 ZARIA GALLOWAY [place] [address] 03/29/2024 ZARIA GALLOWAY Overweight (BMI 25.0-29.9) E66.3 ; BMI 28.0-28.9,adult Z68.28 and Dietary counseling and surveillance Z71.3 [place] [address] 06/01/2024 ZARIA GALLOWAY Overweight (BMI 25.0-29.9) E66.3 ; BMI 27.0-27.9,adult Z68.27 and Dietary counseling and surveillance Z71.3 [place] [address] 07/26/2024 ZARIA GALLOWAY BMI 27.0-27.9,adult Z68.27 ; Overweight (BMI 25.0-29.9) E66.3 and Dietary counseling and surveillance Z71.3 [place] [address] 09/27/2024 ZARIA BORHOT BMI 28.0-28.9,adult Z68.28 ; Overweight (BMI 25.0-29.9) E66.3 and Dietary counseling and surveillance Z71.[address] 11/16/2024 ZARIA BORHOT BMI 28.0-28.9,adult Z68.28 ; Overweight (BMI 25.0-29.9) E66.3 ; Dietary counseling and surveillance Z71.3 ; Hypothyroidism, unspecified type E03.9 and Dyslipidemia E78.[address] 12/27/2024 ZARIA BORHOT BMI 29.0-29.9,adult Z68.29 ; Overweight (BMI 25.0-29.9) E66.3 ; Dietary counseling and surveillance Z71.3 ; Hypothyroidism, unspecified type E03.9 and Dyslipidemia E78.[address] 12/29/2024 ZARIA BORHOT BMI 29.0-29.9,adult Z68.29 ; Overweight (BMI 25.0-29.9) E66.3 ; Dietary counseling and surveillance Z71.3 ; Hypothyroidism, unspecified type E03.9 ; Dyslipidemia E78.5 ; Levoscoliosis of lumbar spine M41.86 ; Post-menopausal Z78.0 and Encounter for screening for osteoporosis Z13.[address] 01/26/2025 ZARIA BORHOT BMI 29.0-29.9,adult Z68.29 ; Overweight (BMI 25.0-29.9) E66.3 ; Dietary counseling and surveillance Z71.3 ; Hypothyroidism, unspecified type E03.9 ; Dyslipidemia E78.5 ; Levoscoliosis of lumbar spine M41.86 and Post-menopausal Z78.[address] 03/09/2024 ZARIA BORHOT Overweight (BMI 25.0-29.9) E66.[address] [address] 03/16/2024 ZARIA VAZQUEZT [place] [address] [address] 03/30/2024 ZARIA GALLOWAY Overweight (BMI 25.0-29.9) E66.3 [place] [address] [address] 09/16/2024 ZARIA VAZQUEZT [place] [address] 09/22/2024 ZARIA GALLOWAY ASSESSMENTS Encounter Date [...] track activity level. Consider using apps like [employer], myfitnesspal, lose it, stick as needed for self-monitoring and weight management. Consider group exercises. Consider hiring a horse trainer. Regular exercise is [place] to sustainable health [...] counseling and psychiatry and Dr Villeda at [facility]. We would like to cover regular topics [...] software and direct typing Please excuse inadvertent manager of sales or typing errors, or uncorrected word substitutions Although every attempt has been made by the provider to proofread this document, occasional misspellings and typographical errors may still be present Due to the previous pandemic, and the use of personal protective equipment (PPE) This may decrease voice recognition accuracy Inadvertent manager of sales errors may occur 03/29/2024 Overweight (BMI 25.0-29.9) [...] track activity level. Consider using apps like [employer], [employer]pal, lose it, stick as needed for self-monitoring and weight management. Consider group exercises. Consider hiring a horse trainer. Regular exercise is [place] to sustainable health [...] counseling and psychiatry and Dr Villeda at [facility]. We would like to cover regular topics [...] software and direct typing Please excuse inadvertent manager of sales or typing errors, or uncorrected word substitutions Although every attempt has been made by the provider to proofread this document, occasional misspellings and typographical errors may still be present Due to the previous pandemic, and the use of personal protective equipment (PPE) This may decrease voice recognition accuracy Inadvertent manager of sales errors may occur 03/30/2024 Overweight (BMI 25.0-29.9) [...] track activity level. Consider using apps like [employer], [employer], lose it, stick as needed for self-monitoring and weight management. Consider group exercises. Consider hiring a horse trainer. Regular exercise is [place] to sustainable health [...] counseling and psychiatry and Dr Villeda at [facility]. We would like to cover regular topics [...] software and direct typing Please excuse inadvertent manager of sales or typing errors, or uncorrected word substitutions Although every attempt has been made by the provider to proofread this document, occasional misspellings and typographical errors may still be present Due to the previous pandemic, and the use of personal protective equipment (PPE) This may decrease voice recognition accuracy Inadvertent manager of sales errors may occur 06/01/2024 Overweight (BMI 25.0-29.9) [...] track activity level. Consider using apps like [employer], [employer], lose it, stick as needed for self-monitoring and weight management. Consider group exercises. Consider hiring a horse trainer. Regular exercise is [place] to sustainable health [...] counseling and psychiatry and Dr Villeda at [facility]. We would like to cover regular topics [...] software and direct typing Please excuse inadvertent manager of sales or typing errors, or uncorrected word substitutions Although every attempt has been made by the provider to proofread this document, occasional misspellings and typographical errors may still be present Due to the previous pandemic, and the use of personal protective equipment (PPE) This may decrease voice recognition accuracy Inadvertent manager of sales errors may occur 09/27/2024 BMI 28.0-28.9,adult (ICD-10 [...] software and direct typing Please excuse inadvertent manager of sales or typing errors, or uncorrected word substitutions Although every attempt has been made by the provider to proofread this document, occasional misspellings and typographical errors may still be present Due to the previous pandemic, and the use of personal protective equipment (PPE) This may decrease voice recognition accuracy Inadvertent manager of sales errors may occur 11/16/2024 BMI 28.0-28.9,adult (ICD-10 [...] software and direct typing Please excuse inadvertent manager of sales or typing errors, or uncorrected word substitutions Although every attempt has been made by the provider to proofread this document, occasional misspellings and typographical errors may still be present Due to the previous pandemic, and the use of personal protective equipment (PPE) This may decrease voice recognition accuracy Inadvertent manager of sales errors may occur 07/26/2024 BMI 27.0-27.9,adult (ICD-10 [...] track activity level. Consider using apps like [employer], [employer], lose it, stick as needed for self-monitoring and weight management. Consider group exercises. Consider hiring a horse trainer. Regular exercise is [place] to sustainable health [...] counseling and psychiatry and Dr Villeda at [facility]. We would like to cover regular topics [...] software and direct typing Please excuse inadvertent manager of sales or typing errors, or uncorrected word substitutions Although every attempt has been made by the provider to proofread this document, occasional misspellings and typographical errors may still be present Due to the previous pandemic, and the use of personal protective equipment (PPE) This may decrease voice recognition accuracy Inadvertent manager of sales errors may occur 12/27/2024 BMI 29.0-29.9,adult (ICD-10 [...] software and direct typing Please excuse inadvertent manager of sales or typing errors, or uncorrected word substitutions Although every attempt has been made by the provider to proofread this document, occasional misspellings and typographical errors may still be present Due to the previous pandemic, and the use of personal protective equipment (PPE) This may decrease voice recognition accuracy Inadvertent manager of sales errors may occur 12/29/2024 BMI 29.0-29.9,adult (ICD-10 [...] software and direct typing Please excuse inadvertent manager of sales or typing errors, or uncorrected word substitutions Although every attempt has been made by the provider to proofread this document, occasional misspellings and typographical errors may still be present Due to the previous pandemic, and the use of personal protective equipment (PPE) This may decrease voice recognition accuracy Inadvertent manager of sales errors may occur 01/26/2025 BMI 29.0-29.9,adult (ICD-10 [...] software and direct typing Please excuse inadvertent manager of sales or typing errors, or uncorrected word substitutions Although every attempt has been made by the provider to proofread this document, occasional misspellings and typographical errors may still be present Due to the previous pandemic, and the use of personal protective equipment (PPE) This may decrease voice recognition accuracy Inadvertent manager of sales errors may occur 01/26/2025 Overweight (BMI 25.0-29.9) [...] software and direct typing Please excuse inadvertent manager of sales or typing errors, or uncorrected word substitutions Although every attempt has been made by the provider to proofread this document, occasional misspellings and typographical errors may still be present Due to the previous pandemic, and the use of personal protective equipment (PPE) This may decrease voice recognition accuracy Inadvertent manager of sales errors may occur 12/29/2024 Overweight (BMI 25.0-29.9) [...] software and direct typing Please excuse inadvertent manager of sales or typing errors, or uncorrected word substitutions Although every attempt has been made by the provider to proofread this document, occasional misspellings and typographical errors may still be present Due to the previous pandemic, and the use of personal protective equipment (PPE) This may decrease voice recognition accuracy Inadvertent manager of sales errors may occur 01/26/2025 Dietary counseling and [...] software and direct typing Please excuse inadvertent manager of sales or typing errors, or uncorrected word substitutions Although every attempt has been made by the provider to proofread this document, occasional misspellings and typographical errors may still be present Due to the previous pandemic, and the use of personal protective equipment (PPE) This may decrease voice recognition accuracy Inadvertent manager of sales errors may occur 12/29/2024 Dietary counseling and [...] software and direct typing Please excuse inadvertent manager of sales or typing errors, or uncorrected word substitutions Although every attempt has been made by the provider to proofread this document, occasional misspellings and typographical errors may still be present Due to the previous pandemic, and the use of personal protective equipment (PPE) This may decrease voice recognition accuracy Inadvertent manager of sales errors may occur 12/27/2024 Overweight (BMI 25.0-29.9) [...] software and direct typing Please excuse inadvertent manager of sales or typing errors, or uncorrected word substitutions Although every attempt has been made by the provider to proofread this document, occasional misspellings and typographical errors may still be present Due to the previous pandemic, and the use of personal protective equipment (PPE) This may decrease voice recognition accuracy Inadvertent manager of sales errors may occur 07/26/2024 Overweight (BMI 25.0-29.9) [...] track activity level. Consider using apps like [employer], [employer], lose it, stick as needed for self-monitoring and weight management. Consider group exercises. Consider hiring a horse trainer. Regular exercise is [place] to sustainable health [...] counseling and psychiatry and Dr Villeda at [facility]. We would like to cover regular topics [...] software and direct typing Please excuse inadvertent manager of sales or typing errors, or uncorrected word substitutions Although every attempt has been made by the provider to proofread this document, occasional misspellings and typographical errors may still be present Due to the previous pandemic, and the use of personal protective equipment (PPE) This may decrease voice recognition accuracy Inadvertent manager of sales errors may occur 09/27/2024 Dietary counseling and [...] software and direct typing Please excuse inadvertent manager of sales or typing errors, or uncorrected word substitutions Although every attempt has been made by the provider to proofread this document, occasional misspellings and typographical errors may still be present Due to the previous pandemic, and the use of personal protective equipment (PPE) This may decrease voice recognition accuracy Inadvertent manager of sales errors may occur 11/16/2024 Overweight (BMI 25.0-29.9) [...] software and direct typing Please excuse inadvertent manager of sales or typing errors, or uncorrected word substitutions Although every attempt has been made by the provider to proofread this document, occasional misspellings and typographical errors may still be present Due to the previous pandemic, and the use of personal protective equipment (PPE) This may decrease voice recognition accuracy Inadvertent manager of sales errors may occur 12/27/2024 Dietary counseling and [...] software and direct typing Please excuse inadvertent manager of sales or typing errors, or uncorrected word substitutions Although every attempt has been made by the provider to proofread this document, occasional misspellings and typographical errors may still be present Due to the previous pandemic, and the use of personal protective equipment (PPE) This may decrease voice recognition accuracy Inadvertent manager of sales errors may occur 09/27/2024 Overweight (BMI 25.0-29.9) [...] software and direct typing Please excuse inadvertent manager of sales or typing errors, or uncorrected word substitutions Although every attempt has been made by the provider to proofread this document, occasional misspellings and typographical errors may still be present Due to the previous pandemic, and the use of personal protective equipment (PPE) This may decrease voice recognition accuracy Inadvertent manager of sales errors may occur 11/16/2024 Dietary counseling and [...] software and direct typing Please excuse inadvertent manager of sales or typing errors, or uncorrected word substitutions Although every attempt has been made by the provider to proofread this document, occasional misspellings and typographical errors may still be present Due to the previous pandemic, and the use of personal protective equipment (PPE) This may decrease voice recognition accuracy Inadvertent manager of sales errors may occur 03/29/2024 Dietary counseling and [...] track activity level. Consider using apps like [employer], [employer], lose it, stick as needed for self-monitoring and weight management. Consider group exercises. Consider hiring a horse trainer. Regular exercise is [place] to sustainable health [...] counseling and psychiatry and Dr Villeda at [facility]. We would like to cover regular topics [...] software and direct typing Please excuse inadvertent manager of sales or typing errors, or uncorrected word substitutions Although every attempt has been made by the provider to proofread this document, occasional misspellings and typographical errors may still be present Due to the previous pandemic, and the use of personal protective equipment (PPE) This may decrease voice recognition accuracy Inadvertent manager of sales errors may occur 06/01/2024 Dietary counseling and [...] track activity level. Consider using apps like [employer], [employer], lose it, stick as needed for self-monitoring and weight management. Consider group exercises. Consider hiring a horse trainer. Regular exercise is [place] to sustainable health [...] counseling and psychiatry and Dr Villeda at [facility]. We would like to cover regular topics [...] software and direct typing Please excuse inadvertent manager of sales or typing errors, or uncorrected word substitutions Although every attempt has been made by the provider to proofread this document, occasional misspellings and typographical errors may still be present Due to the previous pandemic, and the use of personal protective equipment (PPE) This may decrease voice recognition accuracy Inadvertent manager of sales errors may occur 07/26/2024 Dietary counseling and [...] track activity level. Consider using apps like [employer], [employer], lose it, stick as needed for self-monitoring and weight management. Consider group exercises. Consider hiring a horse trainer. Regular exercise is [place] to sustainable health [...] counseling and psychiatry and Dr Villeda at [facility]. We would like to cover regular topics [...] software and direct typing Please excuse inadvertent manager of sales or typing errors, or uncorrected word substitutions Although every attempt has been made by the provider to proofread this document, occasional misspellings and typographical errors may still be present Due to the previous pandemic, and the use of personal protective equipment (PPE) This may decrease voice recognition accuracy Inadvertent manager of sales errors may occur 11/16/2024 Hypothyroidism, unspecified type [...] software and direct typing Please excuse inadvertent manager of sales or typing errors, or uncorrected word substitutions Although every attempt has been made by the provider to proofread this document, occasional misspellings and typographical errors may still be present Due to the previous pandemic, and the use of personal protective equipment (PPE) This may decrease voice recognition accuracy Inadvertent manager of sales errors may occur 12/27/2024 Hypothyroidism, unspecified type [...] software and direct typing Please excuse inadvertent manager of sales or typing errors, or uncorrected word substitutions Although every attempt has been made by the provider to proofread this document, occasional misspellings and typographical errors may still be present Due to the previous pandemic, and the use of personal protective equipment (PPE) This may decrease voice recognition accuracy Inadvertent manager of sales errors may occur 12/29/2024 Hypothyroidism, unspecified type [...] software and direct typing Please excuse inadvertent manager of sales or typing errors, or uncorrected word substitutions Although every attempt has been made by the provider to proofread this document, occasional misspellings and typographical errors may still be present Due to the previous pandemic, and the use of personal protective equipment (PPE) This may decrease voice recognition accuracy Inadvertent manager of sales errors may occur 01/26/2025 Hypothyroidism, unspecified type [...] software and direct typing Please excuse inadvertent manager of sales or typing errors, or uncorrected word substitutions Although every attempt has been made by the provider to proofread this document, occasional misspellings and typographical errors may still be present Due to the previous pandemic, and the use of personal protective equipment (PPE) This may decrease voice recognition accuracy Inadvertent manager of sales errors may occur 01/26/2025 Dyslipidemia (ICD-10 - [...] software and direct typing Please excuse inadvertent manager of sales or typing errors, or uncorrected word substitutions Although every attempt has been made by the provider to proofread this document, occasional misspellings and typographical errors may still be present Due to the previous pandemic, and the use of personal protective equipment (PPE) This may decrease voice recognition accuracy Inadvertent manager of sales errors may occur 12/29/2024 Dyslipidemia (ICD-10 - [...] software and direct typing Please excuse inadvertent manager of sales or typing errors, or uncorrected word substitutions Although every attempt has been made by the provider to proofread this document, occasional misspellings and typographical errors may still be present Due to the previous pandemic, and the use of personal protective equipment (PPE) This may decrease voice recognition accuracy Inadvertent manager of sales errors may occur 12/27/2024 Dyslipidemia (ICD-10 - [...] software and direct typing Please excuse inadvertent manager of sales or typing errors, or uncorrected word substitutions Although every attempt has been made by the provider to proofread this document, occasional misspellings and typographical errors may still be present Due to the previous pandemic, and the use of personal protective equipment (PPE) This may decrease voice recognition accuracy Inadvertent manager of sales errors may occur 11/16/2024 Dyslipidemia (ICD-10 - [...] software and direct typing Please excuse inadvertent manager of sales or typing errors, or uncorrected word substitutions Although every attempt has been made by the provider to proofread this document, occasional misspellings and typographical errors may still be present Due to the previous pandemic, and the use of personal protective equipment (PPE) This may decrease voice recognition accuracy Inadvertent manager of sales errors may occur 12/29/2024 Levoscoliosis of lumbar [...] software and direct typing Please excuse inadvertent manager of sales or typing errors, or uncorrected word substitutions Although every attempt has been made by the provider to proofread this document, occasional misspellings and typographical errors may still be present Due to the previous pandemic, and the use of personal protective equipment (PPE) This may decrease voice recognition accuracy Inadvertent manager of sales errors may occur 01/26/2025 Levoscoliosis of lumbar [...] software and direct typing Please excuse inadvertent manager of sales or typing errors, or uncorrected word substitutions Although every attempt has been made by the provider to proofread this document, occasional misspellings and typographical errors may still be present Due to the previous pandemic, and the use of personal protective equipment (PPE) This may decrease voice recognition accuracy Inadvertent manager of sales errors may occur 01/26/2025 Post-menopausal (ICD-10 - [...] software and direct typing Please excuse inadvertent manager of sales or typing errors, or uncorrected word substitutions Although every attempt has been made by the provider to proofread this document, occasional misspellings and typographical errors may still be present Due to the previous pandemic, and the use of personal protective equipment (PPE) This may decrease voice recognition accuracy Inadvertent manager of sales errors may occur 12/29/2024 Post-menopausal (ICD-10 - [...] software and direct typing Please excuse inadvertent manager of sales or typing errors, or uncorrected word substitutions Although every attempt has been made by the provider to proofread this document, occasional misspellings and typographical errors may still be present Due to the previous pandemic, and the use of personal protective equipment (PPE) This may decrease voice recognition accuracy Inadvertent manager of sales errors may occur 12/29/2024 Encounter for screening [...] software and direct typing Please excuse inadvertent manager of sales or typing errors, or uncorrected word substitutions Although every attempt has been made by the provider to proofread this document, occasional misspellings and typographical errors may still be present Due to the previous pandemic, and the use of personal protective equipment (PPE) This may decrease voice recognition accuracy Inadvertent manager of sales errors may occur PLAN OF TREATMENT Pending Test Test Name Order Date Bone Density 12/29/2024 LIPID PANEL, STANDARD 01/26/2025 LIPID PANEL, STANDARD 09/27/2024 LIPID PANEL, STANDARD 11/16/2024 COMPREHENSIVE METABOLIC PANEL 09/27/2024 CBC (INCLUDES DIFF/PLT) 09/27/2024 URINALYSIS, COMPLETE 09/27/2024 HEMOGLOBIN A1c 09/27/2024 T4 (THYROXINE), TOTAL 11/16/2024 TSH 11/16/2024 TSH 09/27/2024 VITAMIN D,25-OH,TOTAL,IA 09/27/2024 Next Appt Details Provider Name:ZARIA GALLOWAY, 03/14/2025 08:15:00 AM, [address] [facility], [facility] [address], [place], [address], Insurance Providers Payer Name Payer Address Payer Phone Subscriber Number Group Number Insured Name Patient Relationship to Insured Coverage Start Date Coverage End Date [employer] [address] [address] [place] [address] [id number] [phone] HEATHER STOVALL Self - patient is the insured MEDICATIONS ADMINISTERED Medication Instructions Date of Administration Dosage Notes MICC B12 INJECTION 09/05/2023 1 mL MEDICAL (GENERAL) HISTORY Medical History History ICD Code headache gallbladder disease Surgical History Surgery Date(Month/Year) gastric sleeve gallbladder removal lumbar fusion
--- OUTSIDE RECORDS SUMMARY | 2025-03-08 15:17 | XMS_ITS | Encounter Summary ---
Author Organization [facility] Address [address] [place] [address] Care Team Providers Care Enterprise Systems Manager Name Role Phone Maria Luisa Perez MD Primary Care Provider [phone] Encounter Details Date Type Department Care Team (Latest Contact Info) Description 09/09/2024 Lab Requisition [facility] - Main Lab [address] [place] [address] Deniz Jones MD [address] [address] Encounter for gynecological examination (general) [...] lesion or malignancy 09/14/2024 9:29 AM EST [facility] ([facility]) [facility] General Categorization Negative 09/14/2024 9:29 AM [facility] Specimen Adequacy Satisfactory for evaluation, endocervical/barnett sformation zone component present 09/14/2024 9:29 AM [facility] Pap Methodology Liquid Based Pap Test 09/14/2024 9:29 AM [facility] Disclaimer The Pap test is a screening test which carries an inherent false negative rate. These test results should be correlated with the patient's clinical findings and history. This Pap test was processed using an automated screening system. Technical cytopathology services provided by [facility], at [address] [place] [id number] (CLIA # [id number]/Dano Dukes MD, Mica Washer Gluer.) 09/14/2024 9:29 AM [facility] Console Pap Interpretation Reported 09/14/2024 9:29 AM [facility] Brushing/Spatula Cervix uteri structure / Unknown 09/09/2024 09/09/2024 3:30 PM EST us Deniz Jones MD LAB CYTOLOGY ORDERABLES Final Result Performing Organization Address City/State/[facility] Co de Phone Number [facility] [address] [place] [address], documented in this encounter Visit Diagnoses Diagnosis Encounter for gynecological examination (general) (routine) without abnormal findings documented in this encounter Care Teams Enterprise Systems Manager Relationship Specialty Start Date End Date Maria Luisa Perez MD 175 [facility] [address] [place] [address] PCP - General Internal Medicine 11/10/24 documented as of this encounter
--- OUTSIDE RECORDS SUMMARY | 2025-03-08 15:17 | XMS_ITS | Clinical Summary ---
Author Organization [facility] Address [address] [place] [address] Care Team Providers Care Steel Rigger Name Role Phone Maria Luisa Perez MD Primary Care Provider [phone] Allergies Active Allergy Reactions Criticality Noted Date [...] age to complete this topic Care Teams Steel Rigger Relationship Specialty Start Date End Date Maria Luisa Perez MD 175 [facility] [address] [place] [address] PCP - General Internal Medicine 09/05/20
--- OUTSIDE RECORDS SUMMARY | 2025-03-08 15:17 | XMS_ITS ---
Author Organization [facility] Address [address] [place] [address] Care Team Providers Care Tableau Architect Name Role Phone NILESH ZARIA Unavailable [phone] ALLERGIES Allergen (clinical drug ingredient) Drug/Non Drug [...] 12/29/2024 Encounters Encounter Location Date Provider Diagnosis [facility] [address] [facility] [address] [facility] [address] [place] [address] 12/29/2024 ZARIA GALLOWAY BMI 29.0-29.9,adult Z68.29 ; [...] software and direct typing Please excuse inadvertent senior advisor or typing errors, or uncorrected word substitutions Although every attempt has been made by the provider to proofread this document, occasional misspellings and typographical errors may still be present Due to the previous pandemic, and the use of personal protective equipment (PPE) This may decrease voice recognition accuracy Inadvertent senior advisor errors may occur 12/29/2024 Overweight (BMI 25.0-29.9) [...] software and direct typing Please excuse inadvertent senior advisor or typing errors, or uncorrected word substitutions Although every attempt has been made by the provider to proofread this document, occasional misspellings and typographical errors may still be present Due to the previous pandemic, and the use of personal protective equipment (PPE) This may decrease voice recognition accuracy Inadvertent senior advisor errors may occur 12/29/2024 Dietary counseling and [...] software and direct typing Please excuse inadvertent senior advisor or typing errors, or uncorrected word substitutions Although every attempt has been made by the provider to proofread this document, occasional misspellings and typographical errors may still be present Due to the previous pandemic, and the use of personal protective equipment (PPE) This may decrease voice recognition accuracy Inadvertent senior advisor errors may occur 12/29/2024 Hypothyroidism, unspecified type [...] software and direct typing Please excuse inadvertent senior advisor or typing errors, or uncorrected word substitutions Although every attempt has been made by the provider to proofread this document, occasional misspellings and typographical errors may still be present Due to the previous pandemic, and the use of personal protective equipment (PPE) This may decrease voice recognition accuracy Inadvertent senior advisor errors may occur 12/29/2024 Dyslipidemia (ICD-10 - [...] software and direct typing Please excuse inadvertent senior advisor or typing errors, or uncorrected word substitutions Although every attempt has been made by the provider to proofread this document, occasional misspellings and typographical errors may still be present Due to the previous pandemic, and the use of personal protective equipment (PPE) This may decrease voice recognition accuracy Inadvertent senior advisor errors may occur 12/29/2024 Levoscoliosis of lumbar [...] software and direct typing Please excuse inadvertent senior advisor or typing errors, or uncorrected word substitutions Although every attempt has been made by the provider to proofread this document, occasional misspellings and typographical errors may still be present Due to the previous pandemic, and the use of personal protective equipment (PPE) This may decrease voice recognition accuracy Inadvertent senior advisor errors may occur 12/29/2024 Post-menopausal (ICD-10 - [...] software and direct typing Please excuse inadvertent senior advisor or typing errors, or uncorrected word substitutions Although every attempt has been made by the provider to proofread this document, occasional misspellings and typographical errors may still be present Due to the previous pandemic, and the use of personal protective equipment (PPE) This may decrease voice recognition accuracy Inadvertent senior advisor errors may occur 12/29/2024 Encounter for screening [...] software and direct typing Please excuse inadvertent senior advisor or typing errors, or uncorrected word substitutions Although every attempt has been made by the provider to proofread this document, occasional misspellings and typographical errors may still be present Due to the previous pandemic, and the use of personal protective equipment (PPE) This may decrease voice recognition accuracy Inadvertent senior advisor errors may occur PLAN OF TREATMENT Medication Medication Name Sig Start Date Stop Date Notes Wegovy 2.4 MG/0.75ML 2.4mg Subcutaneous weekly for 30 days Atorvastatin Calcium 40 MG 1 tablet Oral ly Once a day for 90 days Pending Test Test Name Order Date Bone Density 12/29/2024 Next Appt Details Provider Name:ZARIA NILESH, 03/14/2025 08:15:00 AM, [address], [facility] [address], [place], [address], Progress Notes * BARB STOVALLOB:1970 ([age] yo F)Acc No.[id number]:12/29/2024 Progress Notes Patient:??ETHAN STOVALLN Provider:??ZARIA GALLOWAY NP :1970?Age:54 Y?Sex:Fe male Date:12/29/2024 Address:[place], [id number] Subjective: * Chief Complaints: * ?1. Pt [...] for a month now ?She went to [facility] picker her most recent prescription and was told it was a $400 co-pay ?Not surprisingly she has gained some weight and her appetite has revved up ?was on 2.4mg Wegovy weekly maintenance ?Significant family history of cardiovascular disease ?Her sister has significant carotid plaque ?Father had KS ?Her LDL is in the 170s ?She [...] years ago. 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 ?Highest weight: 270 lbs ?Lowest [...] software and direct typing Please excuse inadvertent senior advisor or typing errors, or uncorrected word substitutions Although every attempt has been made by the provider to proofread this document, occasional misspellings and typographical errors may still be present Due to the previous pandemic, and the use of personal protective equipment (PPE) This may decrease voice recognition accuracy Inadvertent senior advisor errors may occur. Plan: * Treatment: * Imaging:?? * ?Imaging: Bone Dens ity * Images: Billing Information: * Visit Code:?? 83674 Office Visit, Est Pt., Level 4. Modifiers: [...] for a month now She went to [facility] pick[facility] her most recent prescription and was told it was a $400 co-pay Not surprisingly she has gained some weight and her appetite has revved up was on 2.4mg Wegovy weekly maintenance Significant family history of cardiovascular disease Her sister has significant carotid plaque Father had KS Her LDL is in the 170s She needs a statin definitively We also discussed coronary calcium CT was scheduled to have Spinal surgery L3-L5, candice placement, [facility] this is STILL on hold [...] Aquino Shingrix: None yet, will go to [employer] Flu 2023: Yes COVID mRNA: x3 Menopausal: LMP was 3 years ago. 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 Highest weight: 270 lbs Lowest [...] General Examination GENERAL APPEARANCE: in no ac [place] distress, well developed, well nourished HEAD: normocephalic, [...]
--- OUTSIDE RECORDS SUMMARY | 2025-03-08 15:17 | XMS_ITS | Clinical Summary ---
Author Organization [address] Address [address] [place] [address] Phone Care Team Providers Care Manager Of Project Management Name Role Phone Maria Luisa Perez MD Primary Care Provider [phone] Allergies Active Allergy Reactions Criticality Noted Date Comments Codeine Nausea And Vomiting 12/13/2005 Penicillin V Potassium 12/13/2005 Medications mv,Ca,min-iron qapq-IO-[id number] 1 mg iron-66.7 mcg-1,000 mcg tablet Take [...] - 01/21/2025 11:59 PM EDT Hospital Encounter [facility] Bone Density [address] [place] [address] Encounter for screening for osteoporosis [...] probability of hip fracture of 0.0%. Code 06344 -------- FINAL REPORT -------- Dictated By: hPillip Lane Dictated Date: 01/21/2025 10:43 ET Assigned Physician: Phillip Lane Reviewed and Electronically Signed By: Phillip Lane Signed Date: 01/21/2025 10:44 ET Workstation ID: [id number] Transcribed By: Self Edit Transcribed Date: 01/21/2025 [...] density of the femurs bilaterally is 1.029 gm/oi6wccfg is 102% of that of young normals [...] probability of hip fracture of 0.0%. Code 33925 -------- FINAL REPORT -------- Dictated By: Phillip Lane Dictated Date: 01/21/2025 10:43 ET Assigned Physician: Phillip Lane Reviewed and Electronically Signed By: Phillip Lane Signed Date: 01/21/2025 10:44 ET Workstation ID: [id number] Transcribed By: Self Edit Transcribed Date: 01/21/2025 10:43 ET Elidia Cadena ALIGNING CHECKER IMG DXA PROCEDURES Final Resu lt * External Dexa Report (01/21/2025) Anatomical Region Laterality Modality Bone Densitometr y Provider [facility] IMG DXA PROCEDURES Final Result * Thyroid stimulating hormone (12/28/2024 10:01 AM EST) TSH 0.83 0.40 - 4.00 mcIU/mL LAB CHEMISTRY METHOD 12/28/2024 11:24 AM EST [facility] Blood Venous blood specimen / Unknown Venipuncture / Unknown 12/28/2024 10:01 AM EST 12/28/2024 10:38 AM EST Elidia Cadena NP LAB BLOOD ORDERABLES Final Re sult Performing Organization Address [facility] de Phone Number [facility] [address] [place] [address], * T4 (12/28/2024 10:01 AM EST) T4, Total 6.6 4.5 - 10.9 mcg/dL LAB CHEMISTRY METHOD 12/28/2024 11:23 AM EST [facility] Blood Venous blood specimen / Unknown Venipuncture / Unknown 12/28/2024 10:01 AM EST 12/28/2024 10:38 AM EST Elidia Cadena NP LAB BLOOD ORDERABLES Final Re sult [facility] [address] [place] [address], [place] [phone] * (ABNORMAL) Lipid panel with reflex to direct LDL (11/10/2024 7:58 AM EST) Cholesterol 254(H) 0 - 200 mg/dL LAB CHEMISTRY METHOD 11/10/2024 10:05 AM EST [facility] Triglycerides 92 0 - 150 mg/dL LAB CHEMISTRY METHOD 11/10/2024 10:05 AM [facility] HDL 59 >=40 mg/dL LAB CHEMISTRY METHOD 11/10/2024 10:05 AM [facility] LDL Calculated 177(H) 0 - 100 mg/dL LAB CHEMISTRY METHOD 11/10/2024 10:05 AM [facility] VLDL Cholesterol Elliot 18.4 mg/dL LAB CHEMISTRY METHOD 11/10/2024 10:05 AM [facility] Non HDL Chol. (LDL+VLDL) 195(H) <145 mg/dL LAB CHEMISTRY METHOD 11/10/2024 10:05 AM EST [facility] Chol/HDL Ratio 4.3 0.0 - 4.4 LAB CHEMISTRY METHOD 11/10/2024 10:05 AM [facility] Blood Venous blood specimen / Unknown Venipuncture / Unknown 11/10/2024 7:58 AM EST 11/10/2024 8:54 AM EST us Elidia Cadena ALIGNING CHECKER LAB BLOOD ORDERABLES Final Re sult [facility] [address] [place] [address], [place] [phone] * Comprehensive metabolic panel (11/10/2024 7:58 AM EST) Sodium 139 133 - 145 mmol/L LAB CHEMISTRY METHOD 11/10/2024 10:05 AM [facility] Potassium 4.0 3.5 - 5.5 mmol/L LAB CHEMISTRY METHOD 11/10/2024 10:05 AM [facility] Chloride 106 96 - 110 mmol/L LAB CHEMISTRY METHOD 11/10/2024 10:05 AM [facility] CO2 26 21 - 32 mmol/L LAB CHEMISTRY METHOD 11/10/2024 10:05 AM [facility] Anion Gap 7 3 - 11 LAB CHEMISTRY METHOD 11/10/2024 10:05 AM [facility] Glucose 76 70 - 100 mg/dL LAB CHEMISTRY METHOD 11/10/2024 10:05 AM [facility] BUN 13 5 - 25 mg/dL LAB CHEMISTRY METHOD 11/10/2024 10:05 AM [facility] Creatinine 0.54 0.50 - 1.10 mg/dL LAB CHEMISTRY METHOD 11/10/2024 10:05 AM [facility] eGFR 110 >=60 mL/min/1. 73m2 LAB CHEMISTRY METHOD 11/10/2024 10:05 AM [facility] Comment:Calculation based on the??Chronic Kidney Disease Epidemiology Collaboration (CKD-EPI) equation refit??without adjustment for race. BUN/Creatinine Ratio 24.1 LAB CHEMISTRY METHOD 11/10/2024 10:05 AM [facility] Calcium 9.3 8.5 - 10.5 mg/dL LAB CHEMISTRY METHOD 11/10/2024 10:05 AM [facility] AST (SGOT) 14 10 - 42 unit/L LAB CHEMISTRY METHOD 11/10/2024 10:05 AM [facility] ALT (SGPT) 23 10 - 60 unit/L LAB CHEMISTRY METHOD 11/10/2024 10:05 AM [facility] Alkaline Phosphatase 50 42 - 121 unit/L LAB CHEMISTRY METHOD 11/10/2024 10:05 AM [facility] Total Protein 7.5 6.0 - 8.0 g/dL LAB CHEMISTRY METHOD 11/10/2024 10:05 AM [facility] Albumin 3.9 3.2 - 5.0 g/dL LAB CHEMISTRY METHOD 11/10/2024 10:05 AM [facility] Total Bilirubin 0.7 0.0 - 1.4 mg/dL LAB CHEMISTRY METHOD 11/10/2024 10:05 AM [facility] Blood Venous blood specimen / Unknown Venipuncture / Unknown 11/10/2024 7:58 AM EST 11/10/2024 8:54 AM EST us Elidia Cadena NP LAB BLOOD ORDERABLES Final Re sult [facility] [address] [place] [address], * Pap smear (09/09/2024 12:00 AM EST) Interpretation Negative for intraepithelial lesion or malignancy 09/14/2024 9:29 AM [facility] General Categorization Negative 09/14/2024 9:29 AM [facility] Specimen Adequacy Satisfactory for evaluation, endocervical/barnett sformation zone component present 09/14/2024 9:29 AM [facility] Pap Methodology Liquid Based Pap Test 09/14/2024 9:29 AM [facility] Disclaimer The Pap test is a screening test which carries an inherent false negative rate. These test results should be correlated with the patient's clinical findings and history. This Pap test was processed using an automated screening system. Technical cytopathology services provided by [facility], at [address] [place] [address] (CLIA # [id number]/Dano Dukes MD, Policy Analyst.) 09/14/2024 9:29 AM [facility] Console Pap Interpretation Reported 09/14/2024 9:29 AM EST [facility] Brushing/Spatula Cervix uteri structure / Unknown 09/09/2024 09/09/2024 3:30 PM EST us Deniz Jones MD LAB CYTOLOGY ORDERABLES Final Result [facility] [address] [place] [address], * CAR SCREENING DIGITAL (05/12/2024 3:17 PM EDT) Anatomical Region Laterality Modality Mammography 05/12/2024 10:0 4 AM EDT Narrative 05/12/2024 3:17 PM EDT [facility] Diagnostic Imaging Department [address] [place] [address] Patient: ??GENIE STOVALL ?/Age/Sex: 1970 - 53 - F Unit#: ??[id number] ? Location/Status: ??SPDIMAM/REG CLI ? Mnemonic/Ordering Site: ??DIGSC/SPMAM Ordering Physician: ??MARIA LUISA PEREZ MD Car Screening Digital - 05/12/24 - 1027 Report Status:Signed EXAM: Car Screening Digital EXAM DATE AND TIME: 05/12/2024 10:27 AM HISTORY: ??Screening. Paternal aunt had breast carcinoma. COMPARISON: ??04/10/23, 04/09/22, 04/06/21 TECHNIQUE: Bilateral digital breast tomosynthesis was performed in the CC and MLO projections. Computer aided detection with [employer] 3D 3.1 was employed. TISSUE DENSITY: a. [...] Procedure Note Kay Cross MD - 08/11/2024 [facility] Diagnostic Imaging Department [address] [place], [place] [id number] Patient: GENIE STOVALL.O.B./Age/Sex: 1970 - 53 - F Unit#: [id number] Location/Status: SPDIMA/REG CLI Mnemonic/Ordering Site: [facility] Ordering Physician: MARIA LUISA PEREZ MD [facility] Screening Digital - 05/12/24 - 1027 Report Status:Signed EXAM: [facility] Screening Digital EXAM DATE AND TIME: 05/12/2024 10:27 AM HISTORY: Screening. Paternal aunt had breast carcinoma. COMPARISON: 04/10/23, 04/09/22, 04/06/21 TECHNIQUE: Bilateral digital breast tomosynthesis was performed in the CCand MLO projections. Computer aided detection with [employer] 3D 3.1was employed. TISSUE DENSITY: a. The [...] Health Maintenance Insurance [employer] Care Teams Manager Of Project Management Relationship Specialty Start Date End Date Maria Luisa Perez MD [address] [address] PCP - General Internal Medicine 11/10/24
--- OUTSIDE RECORDS SUMMARY | 2025-03-08 15:17 | XMS_ITS ---
Author Organization [facility] Address [address] [place] [address] Care Team Providers Care Superintendent Terminal Name Role Phone NILESH ZARIA Unavailable [phone] ALLERGIES Allergen (clinical drug ingredient) Drug/Non Drug [...] 01/26/2025 Encounters Encounter Location Date Provider Diagnosis [facility] [address] [facility] [address] [facility] [address] [place] [address] 01/26/2025 ZARIA GALLOWAY BMI 29.0-29.9,adult Z68.29 ; [...] software and direct typing Please excuse inadvertent general manager food or typing errors, or uncorrected word substitutions Although every attempt has been made by the provider to proofread this document, occasional misspellings and typographical errors may still be present Due to the previous pandemic, and the use of personal protective equipment (PPE) This may decrease voice recognition accuracy Inadvertent general manager food errors may occur 01/26/2025 Overweight (BMI 25.0-29.9) [...] software and direct typing Please excuse inadvertent general manager food or typing errors, or uncorrected word substitutions Although every attempt has been made by the provider to proofread this document, occasional misspellings and typographical errors may still be present Due to the previous pandemic, and the use of personal protective equipment (PPE) This may decrease voice recognition accuracy Inadvertent general manager food errors may occur 01/26/2025 Dietary counseling and [...] software and direct typing Please excuse inadvertent general manager food or typing errors, or uncorrected word substitutions Although every attempt has been made by the provider to proofread this document, occasional misspellings and typographical errors may still be present Due to the previous pandemic, and the use of personal protective equipment (PPE) This may decrease voice recognition accuracy Inadvertent general manager food errors may occur 01/26/2025 Hypothyroidism, unspecified type [...] software and direct typing Please excuse inadvertent general manager food or typing errors, or uncorrected word substitutions Although every attempt has been made by the provider to proofread this document, occasional misspellings and typographical errors may still be present Due to the previous pandemic, and the use of personal protective equipment (PPE) This may decrease voice recognition accuracy Inadvertent general manager food errors may occur 01/26/2025 Dyslipidemia (ICD-10 - [...] software and direct typing Please excuse inadvertent general manager food or typing errors, or uncorrected word substitutions Although every attempt has been made by the provider to proofread this document, occasional misspellings and typographical errors may still be present Due to the previous pandemic, and the use of personal protective equipment (PPE) This may decrease voice recognition accuracy Inadvertent general manager food errors may occur 01/26/2025 Levoscoliosis of lumbar [...] software and direct typing Please excuse inadvertent general manager food or typing errors, or uncorrected word substitutions Although every attempt has been made by the provider to proofread this document, occasional misspellings and typographical errors may still be present Due to the previous pandemic, and the use of personal protective equipment (PPE) This may decrease voice recognition accuracy Inadvertent general manager food errors may occur 01/26/2025 Post-menopausal (ICD-10 - [...] software and direct typing Please excuse inadvertent general manager food or typing errors, or uncorrected word substitutions Although every attempt has been made by the provider to proofread this document, occasional misspellings and typographical errors may still be present Due to the previous pandemic, and the use of personal protective equipment (PPE) This may decrease voice recognition accuracy Inadvertent general manager food errors may occur PLAN OF TREATMENT Medication Medication Name Sig Start Date Stop Date Notes Atorvastatin Calcium 40 MG 1 tablet Oral ly Once a day for 90 days Wegovy 2.4 MG/0.75ML 2.4mg Subcutaneous weekly for 30 days Pending Test Test Name Order Date LIPID PANEL, STANDARD 01/26/2025 Next Appt Details Provider Name:ZARIA VAZQUEZT, 03/14/2025 08:15:00 AM, [address] [facility], [address], [place], [address], Progress Notes * SIAETHANCESAROB:1970 ([age] yo F)Acc No.[id number]:01/26/2025 Patient:??ALLISON STOVALLLYN Provider:??ZARIA GALLOWAY NP :1970?Age:54 Y?Sex:Fe male Date:01/26/2025 Address:[address] [place], [id number] Subjective: * Chief Complaints: * ?1. 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 ?Highest weight: 270 lbs ?Lowest [...] software and direct typing Please excuse inadvertent general manager food or typing errors, or uncorrected word substitutions Although every attempt has been made by the provider to proofread this document, occasional misspellings and typographical errors may still be present Due to the previous pandemic, and the use of personal protective equipment (PPE) This may decrease voice recognition accuracy Inadvertent general manager food errors may occur. Plan: * Treatment: * Labs:?? * ?Lab: LIPID PANEL, STANDARD * Procedure Codes:??74860 P/M FLAVOR TANK TENDER, INDIV 15 MIN, Modifiers: 33 , SA * Images: Billing Information: * Visit Code:?? 23968 Office Visit, Est Pt., Level 4. Modifiers: SA * Procedure Codes:?? 47082 P/M FLAVOR TANK TENDER, INDIV 15 MIN. Modifiers: 33, SA * [...] our practice Patient was finally able to pick out hand her Wegovy and had her first injection in 2 months on Friday. Denies any side effects, tolerating well. finally She is scheduled to have Spinal surgery L3-L5 this month, candice placement, postural correction with [facility] on 02/15/2025 Discussed preoperative discontinuation guidelines for GLP-1 Updated thyroid function as of December 28, 2024 TSH within normal limits at 0.83 Total T4, also normal at 6.6 Has returned to 2.4mg Wegovy weekly maintenance Significant family history of cardiovascular disease Her sister has significant carotid plaque Father had [place] Her LDL is in the 170s She [...] Aquino Shingrix: None yet, will go to [facility] Flu 2023: Yes COVID mRNA: x3 Bone density scan, December 2024, no evidence of osteopenia or osteoporosis 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 Highest weight: 270 lbs Lowest [...]
== END 2025-03-08 14:53 | disposition home or self-care (01) ==
LOC: HO.HNS 14:06
PROVIDERS: PCP Internal Medicine; Visit Provider Physician Assistant
DX: Z98.1 Arthrodesis status (principal)
CPT/HCPCS: 99024

== ENCOUNTER → 2025-03-08 14:05 | Outpatient (BNVA) | payer OTHER, SELFPAY | PROVIDERS: PCP Internal Medicine; Visit Provider Physician Assistant ==

== ENCOUNTER 2025-04-20 08:28 | Outpatient (REF) | payer OTHER, SELFPAY ==
--- NOTE | ~2025-04-20 | XR_ITS ---
Exam: 4 view lumbar spine TECHNIQUE: AP, and lateral: Flexion, neutral, and extension view x-rays of the lumbar spine. Prior: February 16, 2025 INDICATION: Follow-up post fusion FINDINGS: There are clips from cholecystectomy. There are 5 nonrib bearing lumbar segments. There is 34 degrees levoscoliosis with apex at L2. Posterior pedicle screws and rods are in place at L2, L3, L4, and L5. There are interbody cages with bone graft. There is nearby spacer at L5-S1 with surgical ronald anteriorly. With flexion and extension, there is limited range of motion without instability. There is moderate degenerative disc disease with endplate sclerosis and osteophytes at L1-2. XR/XR lumbar spine 4V min Impression: Posterior lumbar interbody fusion L2-L5 with interbody spacer at L5-S1. Stable Moderate levoscoliosis of the lumbar spine. Electronically signed by: Sean Judge MD 04/20/2025 02:37 PM EDT
--- OUTSIDE RECORDS SUMMARY | 2025-04-21 08:50 | XMS_ITS | Encounter Summary ---
Author Organization [facility] Address [address] [place] [address] Care Team Providers Care Agriculture Mechanic Name Role Phone Maria Luisa Perez MD Primary Care Provider [phone] Encounter Details Date Type Department Care Team (Latest Contact Info) Description 09/09/2024 Lab Requisition [facility] - Main Lab [address] [place] [address] Deniz Jones MD [address] [address] Encounter for gynecological examination (general) [...] lesion or malignancy 09/14/2024 9:29 AM EST [facility] General Categorization Negative [...] screening system. Technical cytopathology services provided by [facility], at [address] [place] [address] (CLIA # [id number]/Dano Dukes MD, District Manager Major Accounts Sales.) 09/14/2024 9:29 AM [facility] Console Pap Interpretation Reported 09/14/2024 9:29 AM [facility] Brushing/Spatula Cervix uteri structure / Unknown 09/09/2024 09/09/2024 3:30 PM EST us Deniz Jones MD LAB CYTOLOGY ORDERABLES Final Result Performing Organization Address City/State/[facility] Co de Phone Number [facility] [address] [place] [address], documented in this encounter Visit Diagnoses Diagnosis Encounter for gynecological examination (general) (routine) without abnormal findings documented in this encounter Care Teams Agriculture Mechanic Relationship Specialty Start Date End Date Maria Luisa Perez MD 175 [facility] [address] [phone] PCP - General Internal Medicine 11/10/24 documented as of this encounter
== END 2025-04-20 08:29 | disposition home or self-care (01) ==
LOC: HO.HOSX 08:28
PROVIDERS: Visit Provider Physician Assistant
DX: M54.50 Low back pain, unspecified (principal); Z98.1 Arthrodesis status
CPT/HCPCS: 72110

== ENCOUNTER 2025-04-20 13:47 | Outpatient (AMB) | payer OTHER, SELFPAY ==
--- NOTE | 2025-04-20 14:07 | HO.SPINEOV ---
Intake Visit Reasons: 2nd post op with Xrays Intake Note: Ms. Ortiz is here today for her 2nd post op with x-rays. Hotel Supplies Salesperson Required: No Allergies codeine Allergy (Verified 04/20/25 14:07) Vomiting Penicillins Allergy (Verified 04/20/25 14:07) Swelling, vomitting Assessment & Plan Assessment & Plan (1) Lumbago: Code(s): M54.50 - Low back pain, unspecified Category: Medical Plan Procedure: L2-3, L3-4 and L4-5 ART Ortiz is a pleasant 54-year-old female who comes in today for a 2nd postoperative appointment after having a 3 level lumbar fusion completed by Dr. Dash on 02/15/25. She reports that unfortunately she continues to deal with a very similar low back pain and left leg pain that she had prior to surgery. She is also concerned that she feels as though she is starting to slouch over to her left side as she was prior to surgery. Her family has also pointed this out to her. Despite this, she has still been able to complete the bulk of her ADLs. She requested some kind of paperwork for work as she has been out for the past 2 months but does not feel she is able to return at this point. She asked several questions regarding the postoperative healing course, all of which I answered to the best of my ability. We reviewed her x-ray imaging that was completed in office today which shows stable placement of her surgical construct with no notable changes when compared to the images from fluoroscopy. No new neurological deficits. The patient ambulates well and rises from a seated position without difficulty. Her posterior incision sites are closed and well healed. Given the patient continues to report similar pain to the pain that she had prior to surgery, and we are unable to identify anything on her x-ray imaging that seems out of place, I believe she should have a CT scan of the lumbar spine to evaluate for exact placement of surgical instrumentation. We will keep her out of work until the CT scan is complete. I will call her with updated results once her images are read by Radiology. Dallin Dash MD,PhD [facility] Orders: Orders XR lumbar spine 4V min Today Z98.1 - Arthrodesis status Coding Level of Care Code Global (25631) Diagnoses Lumbago M54.50
--- OUTSIDE RECORDS SUMMARY | 2025-04-20 16:21 | XMS_ITS | Encounter Summary ---
Author Organization [facility] Address [address] [place] [address] Care Team Providers Care Laboratory Sampler Name Role Phone Maria Luisa Perez MD Primary Care Provider [phone] Encounter Details Date Type Department Care Team (Latest Contact Info) Description 09/09/2024 Lab Requisition [facility] - Main Lab [address] [place] [address] Deniz Jones MD [address] [address] Encounter for gynecological examination (general) [...] lesion or malignancy 09/14/2024 9:29 AM EST [facility] General Categorization Negative 09/14/2024 9:[address] [facility] Specimen Adequacy Satisfactory for evaluation, endocervical/barnett sformation zone component present 09/14/2024 9:[address] [facility] Pap Methodology Liquid Based Pap Test 09/14/2024 9:[address] [facility] Disclaimer The Pap test is a screening test which carries an inherent false negative rate. These test results should be correlated with the patient's clinical findings and history. This Pap test was processed using an automated screening system. Technical cytopathology services provided by [facility], at [address] [place] [address] (CLIA # [id number]/Dano Dukes MD, Utility Tech.) 09/14/2024 9:[address] [facility] Console Pap Interpretation Reported 09/14/2024 9:[address] [facility] Brushing/Spatula Cervix uteri structure / Unknown 09/09/2024 09/09/2024 3:30 PM EST us Deniz Jones MD LAB CYTOLOGY ORDERABLES Final Result Performing Organization Address City/State/[facility] Co de Phone Number [facility] [address] [place] [address], documented in this encounter Visit Diagnoses Diagnosis Encounter for gynecological examination (general) (routine) without abnormal findings documented in this encounter Care Teams Laboratory Sampler Relationship Specialty Start Date End Date Maria Luisa Perez MD 175 [facility] [address] [place] [address] PCP - General Internal Medicine 11/10/24 documented as of this encounter
== END 2025-04-20 14:55 | disposition home or self-care (01) ==
LOC: HO.HNS 13:47
PROVIDERS: PCP Internal Medicine; Visit Provider Physician Assistant
DX: M54.50 Low back pain, unspecified (principal)
CPT/HCPCS: 99024

== ENCOUNTER → 2025-04-20 13:50 | Outpatient (BNV) | payer OTHER, SELFPAY | PROVIDERS: Visit Provider Radiology Diagnostic Radiology | DX: M41.86 Other forms of scoliosis, lumbar region (principal); M43.26 Fusion of spine, lumbar region | CPT/HCPCS: 72110 ==

== ENCOUNTER 2025-05-30 09:51 | Outpatient (AMB) | payer OTHER, SELFPAY ==
--- NOTE | 2025-05-30 10:14 | A.SPINEOV_ITS ---
Intake Visit Reasons: CT F/u Intake Note: Ms. Ortiz is here today to discuss the results of her CT Scan done @ [facility]. (brougt disc) Latin American Studies Professor Required: No Allergies codeine Allergy (Verified 04/20/25 14:07) Vomiting Penicillins Allergy (Verified 04/20/25 14:07) Swelling, vomitting Assessment & Plan Assessment & Plan (1) S/P lumbar spinal fusion: Code(s): Z98.1 - Arthrodesis status Category: Surgical Plan Procedure: L2-3, L3-4 and L4-5 ART Ortiz is a pleasant 54-year-old female who comes in today for a 2nd postoperative appointment after having a 3 level lumbar fusion completed by Dr. Dash on 02/15/25. To recap during her last office visit she continued to report a very similar low back pain and left leg pain that she had prior to surgery. She was sent for a CT scan of the lumbar spine to evaluate for exact placement of her surgical hardware. Thankfully, after reviewing her CT scan it appears her surgical construct is intact, with no notable changes of instrumentation from guidance fluoroscopy. I reviewed this with the patient during this visit, who reports that she has returned back to work. Thankfully she is able to complete her job without much issue despite continued low back pain. I believe that the patient may be continuing to suffer from protracted pain as a result of her multilevel lumbar fusion. It may just take some time for her body to adjust to the surgery. I would like her to call the office in 2 months if her pain continues and we can consider ordering repeat lumbar MRI. Dallin Dash MD,PhD [facility] Coding Level of Care Code Global (07611) Diagnoses S/P lumbar spinal fusion Z98.1
--- OUTSIDE RECORDS SUMMARY | 2025-05-30 10:28 | XMS_ITS | Encounter Summary ---
Author Organization [facility] Address [address] [place] [address] Care Team Providers Care A P Manager Name Role Phone Maria Luisa Perez MD Primary Care Provider [phone] Encounter Details Date Type Department Care Team (Latest Contact Info) Description 09/09/2024 Lab Requisition [facility] - Main Lab [address] [place] [phone] Deniz Jones MD [address] [phone] Encounter for gynecological examination (general) (routine) without [...] lesion or malignancy 09/14/2024 9:29 AM EST [facility] General Categorization Negative 09/14/2024 9:29 AM [facility] Specimen Adequacy Satisfactory for evaluation, endocervical/barnett sformation zone component present 09/14/2024 9:29 AM [facility] Pap Methodology Liquid Based Pap Test 09/14/2024 9:29 AM [facility] Disclaimer The Pap test is a screening test which carries an inherent false negative rate. These test results should be correlated with the patient's clinical findings and history. This Pap test was processed using an automated screening system. Technical cytopathology services provided by [facility], at [address] [place] [address] (CLIA # [id number]/Dano Dukes MD, Snow Removal Supervisor.) 09/14/2024 9:29 AM [facility] Console Pap Interpretation Reported 09/14/2024 9:29 AM [facility] Brushing/Spatula Cervix uteri structure / Unknown 09/09/2024 09/09/2024 3:30 PM EST us Deniz Jones MD LAB CYTOLOGY ORDERABLES Final Result Performing Organization Address City/State/[facility] Co de Phone Number [facility] [address] [place] [address], documented in this encounter Visit Diagnoses Diagnosis Encounter for gynecological examination (general) (routine) without abnormal findings documented in this encounter Care Teams A P Manager Relationship Specialty Start Date End Date Maria Luisa Perez MD [address] [place] [phone] PCP - General Internal Medicine 11/10/24 documented as of this encounter
--- OUTSIDE RECORDS SUMMARY | 2025-05-30 10:28 | XMS_ITS | Clinical Summary ---
Author Organization [facility] Address [address] [place] [address] Care Team Providers Care Horse Race Starter Name Role Phone Maria Luisa Perez MD Primary Care Provider [phone] Allergies Active Allergy Reactions Criticality Noted Date [...] (1 of 2) 2021 Influenza Vaccine (#1) 2025 08/14/2021 Pneumococcal Vaccine Aged Out No long er eligible based on patient's age to complete this topic RSV Ped < 20 months Aged Out No longe r eligible based on patient's age to complete this topic Care Teams Horse Race Starter Relationship Specialty Start Date End Date Maria Luisa Perez MD 175 [facility] [address] [place] [address] PCP - General Internal Medicine 09/05/20
--- OUTSIDE RECORDS SUMMARY | 2025-05-30 10:28 | XMS_ITS ---
Author Name [facility] Organization Unknown Encounters Encounter Type Encounter Reason Primary Diagnosis Location Date Ambulatory [facility] 03/10/2023 Care Team Organization Name Specialty Phone Email Start Date End Da te [facility] TORO GARCIA Primary Care 03/03/2023 06/14/20 [facility] Maria Luisa Perez Primary Care 09/03/2022 06/14/20 24
--- OUTSIDE RECORDS SUMMARY | 2025-05-30 10:28 | XMS_ITS | Patient Health Record ---
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 Name Role Phone ZARIA GALLOWAY Unavailable [phone] SULYSULLY FRANKLIN Unavailable [phone] Allergies Allergen (clinical drug ingredient) Drug/Non Drug Allergy documented on EMR Reaction Allergy Type Onset Date Status codeine Codeine Unknown Drug Allergy Active Penicillin Unknown Drug Allergy Active Results Component Value Reference Range Notes THYROXINE TOTAL Reviewed date:12/28/2024 11:55:01 AM Interpretation: Performing Lab: Notes/Report: add on T4 T4, Total 6.6 4.5-10.9 mcg/dL THYROID STIMULATING HORMONE Reviewed date:12/28/2024 11:55:01 AM Interpretation: Performing Lab: Notes/Report: TSH 0.83 0.40-4.00 mcIU/mL BD BONE DENSITY DXA AXIAL SK [facility] Reviewed date:01/21/2025 11:10:22 AM Interpretation: Performing Lab: Notes/Report: Note See Note [facility], a member of [email or web address] Patient Name: HEATHER STOVALL Date of : 1970 Reason for Exam: OSTEOPOROSIS Exam Date: 01/21/2025 [id number] EST Report Status: Final Ordering Provider: ZARIA [...] of osteoporosis or osteopenia. 2. FRAX analysis yie lds a 10-year probability of major osteoporotic fracture of 2.5% and a 10-year probability of hip fracture of 0.0%. Code 06567 -------- FINAL REPOR T -------- Dictated By: Phillip Lane Dictated Date: 01/21/2025 10:43 ET Assigned Physician: Phillip Lane Reviewed and Electronically Signed By: Phillip Lane Signed Date: 025 10:44 ET Workstation ID: [id number] Transcribed By: Self Edit Transcribed Date: 01/21/2025 10:43 ET CBC WITH AUTO DIFFERENTIAL Reviewed date:11/10/2024 09:25:08 [...] K/mcL Immature Granulocytes Absolute 0.01 0.00-0.03 K/mcL URINALYSIS WITH REFLEX MICRO SCOPIC Reviewed date:11/10/2024 09:48:13 AM Interpretation: Performing Lab: Notes/Report: Specific [place] Urine 1.022 1.003-1.030 pH, Urine 5.0 5.0-8.0 pH Leukocytes, Urine Small Negative Nitrite, Urine Negative Negative Protein, Urine Negative <=Trace mg/dL Glucose, Urine Negative Negative mg/dL Ketones, Urine Negative Negative mg/dL Urobilinogen, Urine 0.2 0.2-1.0 mg/dL Bilirubin, Urine Negative Negative Blood, Urine Negative Negative RBC, Urine 2.3 0-4 /HPF WBC, Urine 7.4 0-4 /HPF Squamous Epithelial, Urine >100 0-60 /LPF Bacteria, Urine Negative Negative /HPF Hyaline Casts, Urine 1.7 0-3 /LPF HEMOGLOBIN A1C Reviewed date:11/10/2024 05:01:43 PM Interpretation: Performing Lab: Notes/Report: Hemoglobin A1C 5.2 <6.5 % Mean Bld Glu Estim. 103 COMPREHENSIVE METABOLIC PANE L Reviewed date:11/10/2024 10:31:18 [...] 3.2-5.0 g/dL Total Bilirubin 0.7 0.0-1.4 mg/dL THYROID STIMULATING HORMONE Reviewed date:11/10/2024 03:02:45 PM Interpretation: Performing Lab: Notes/Report: TSH 0.37 0.40-4.00 mcIU/mL VITAMIN D 25 HYDROXY Reviewed date:11/10/2024 10:31:18 AM Interpretation: Performing Lab: Notes/Report: Vit D, 25-Hydroxy 26.5 30.0-80.0 ng/mL LIPID PANEL WITH REFLEX TO D IRECT LDL Reviewed date:11/10/2024 10:31:18 AM Interpretation: Performing Lab: Notes/Report: Cholesterol 254 0-200 mg/dL Triglycerides 92 0-150 mg/dL HDL 59 >=40 mg/dL LDL Calculated 177 0-100 mg/dL VLDL Cholesterol Elliot 18.4 Non HDL Chol. (LDL+VLDL) 195 <145 mg/dL Chol/HDL Ratio 4.3 0.0-4.4 Reason For Referral No Information Medications Medication SIG (Take, Route, Frequency, Duration) Notes Start Date End Date Status Wegovy 2.4 MG/0.75ML 2.4mg Subcutaneous weekly; Duration: 30 days Active Atorvastatin Calcium 40 MG 1 tablet Oral ly Once a day; Duration: 90 days Active Social History Tobacco Use: Social History Observation Description Date Details (start date - stop date) Never Smoker NA - NA Tobacco Use/Smoking Question Answer Notes Are you a nonsmoker Alcohol Screen (Audit-C) Question Answer Notes Did you have a drink containing alcohol in the p ast year? No Points 0 Interpretation Negative Problems Problem Type SNOMED Code ICD Code Onset Dates Problem Status W/U Status Risk Notes Problem Vitamin D deficiency (56495921) Vitamin D deficiency, unspecified (E55.9) Active confirmed Problem Obesity due to excess calories (513835881) Other obesity due to excess calories (E66.09) Active confirmed Problem Lipid screening (259863545) Encounter for screening for lipoid disorders (Z13.220) Active confirmed Problem Screening for osteoporosis (068376309) Encounter for screening for osteoporosis (Z13.820) Active confirmed Problem Hyperlipidaemia (20136722) Hyperlipidemia, unspecified hyperlipidemia type (E78.5) Active confirmed Problem Adult health examination (760790758) Adult general medical exam (Z00.00) Active confirmed Problem Hypothyroidism (50081505) Hypothyroidism, unspecified type (E03.9) Active confirmed Problem Diabetes mellitus screening (714782015) Diabetes mellitus screening (Z13.1) Active confirmed Problem Body mass index 35.00 to 39.99 (309462897800024) Body mass index [BMI] 37.0-37.9, adult (Z68.37) Active confirmed Problem Dyslipidemia (309027277) Dyslipidemia (E78.5) Active confirmed Problem Obese class II (775065851337017) BMI 35.0-35.9,adult (Z68.35) Active confirmed Problem Body mass index 30.00 to 34.99 (108291241317143) BMI 31.0-31.9,adult (Z68.31) Active confirmed Problem Overweight (957554703) Overweight (BMI 25.0-29.9) (E66.3) Active confirmed Problem Endocrine/metaboli c screening (816504875) Encounter for screening for endocrine disorder (Z13.29) Active confirmed Vital Signs Heart Rate 84 /min 04/26/2025 Oximetry 99 % 04/26/2025 Blood pressure diastolic 82 mm Hg 04/26/2025 Height 63 in 04/26/2025 Blood pressure systolic 120 mm Hg 04/26/2025 Weight 166.4 lbs 04/26/2025 BMI 29.47 kg/m2 04/26/2025 Encounters Encounter Location Date Provider Diagnosis [facility] [address] [address] 06/01/2024 ZARIA GALLOWAY Overweight (BMI 25.0-29.9) E66.3 ; BMI 27.0-27.9,adult Z68.27 and Dietary counseling and surveillance Z71.3 [facility] [address] [address] 07/26/2024 ZARIA GALLOWAY BMI 27.0-27.9,adult Z68.27 ; Overweight (BMI 25.0-29.9) E66.3 and Dietary counseling and surveillance Z71.3 [facility] [address] [address] 09/27/2024 ZARIA GALLOWAY BMI 28.0-28.9,adult Z68.28 ; Overweight (BMI 25.0-29.9) E66.3 and Dietary counseling and surveillance Z71.3 [facility] [address] 11/16/2024 ZARIA BORHOT BMI 28.0-28.9,adult Z68.28 ; Overweight (BMI 25.0-29.9) E66.3 ; Dietary counseling and surveillance Z71.3 ; Hypothyroidism, unspecified type E03.9 and Dyslipidemia E78.5 [facility] [address] [facility] [address] 12/27/2024 ZARIA BORHOT BMI 29.0-29.9,adult Z68.29 ; Overweight (BMI 25.0-29.9) E66.3 ; Dietary counseling and surveillance Z71.3 ; Hypothyroidism, unspecified type E03.9 and Dyslipidemia E78.5 [facility] [address] [place] [address] 12/29/2024 ZARIA BORHOT BMI 29.0-29.9,adult Z68.29 ; Overweight (BMI 25.0-29.9) E66.3 ; Dietary counseling and surveillance Z71.3 ; Hypothyroidism, unspecified type E03.9 ; Dyslipidemia E78.5 ; Levoscoliosis of lumbar spine M41.86 ; Post-menopausal Z78.0 and Encounter for screening for osteoporosis Z13.820 [facility] [address] [place] [address] 01/26/2025 ZARIA BORHOT BMI 29.0-29.9,adult Z68.29 ; Overweight (BMI 25.0-29.9) E66.3 ; Dietary counseling and surveillance Z71.3 ; Hypothyroidism, unspecified type E03.9 ; Dyslipidemia E78.5 ; Levoscoliosis of lumbar spine M41.86 and Post-menopausal Z78.0 [facility] [address] [place] [phone] 04/26/2025 ZARIA BORHOT BMI 29.0-29.9,adult Z68.29 ; Overweight (BMI 25.0-29.9) E66.3 ; Dietary counseling and surveillance Z71.3 ; Hypothyroidism, unspecified type E03.9 ; Dyslipidemia E78.5 ; Levoscoliosis of lumbar spine M41.86 ; Post-menopausal Z78.0 and Encounter for examination of blood pressure without abnormal findings Z01.30 [facility] [address] [facility] [[email or web address] [address] [place] [address] 09/16/2024 ZARIA GALLOWAY [facility] [address] [facility] [[email or web address]] [address] [place] [address] 09/22/2024 ZARIA GALLOWAY [facility] [address] [facility] [[email or web address]] [address] [place] [address] 04/04/2025 ZARIA GALLOWAY [facility] [address] [facility] [[email or web address]] [address] [place] [address] 04/26/2025 ZARIA GALLOWAY Hyperlipidemia, unspecified hyperlipidemia type E78.5 and Hypothyroidism, unspecified type E03.9 Assessments Encounter Date Diagnosis (ICD Code) Assessment Notes Treatment Notes Treatment Clinical Notes Section Notes 06/01/2024 BMI 27.0-27.9,adult (ICD-10 - Z68.27) #Weight [...] track activity level. Consider using apps like [employer], [employer], lose it, stick as needed for self-monitoring and weight management. Consider group exercises. Consider hiring a personal service representative. Regular exercise is kilgore to sustainable health [...] counseling and psychiatry and Dr Villeda at [employer]. We would like to cover regular topics [...] and direct typing Please excuse inadvertent manager distribution or typing errors, or uncorrected word substitutions Although every attempt has been made by the provider to proofread this document, occasional misspellings and typographical errors may still be present Due to the previous pandemic, and the use of personal protective equipment (PPE) This may decrease voice recognition accuracy Inadvertent manager distribution errors may occur 06/01/2024 Overweight (BMI 25.0-29.9) [...] track activity level. Consider using apps like [employer], [employer], lose it, stick as needed for self-monitoring and weight management. Consider group exercises. Consider hiring a personal service representative. Regular exercise is kilgore to sustainable health [...] counseling and psychiatry and Dr Villeda at [employer]. We would like to cover regular topics [...] and direct typing Please excuse inadvertent manager distribution or typing errors, or uncorrected word substitutions Although every attempt has been made by the provider to proofread this document, occasional misspellings and typographical errors may still be present Due to the previous pandemic, and the use of personal protective equipment (PPE) This may decrease voice recognition accuracy Inadvertent manager distribution errors may occur 09/27/2024 BMI 28.0-28.9,adult (ICD-10 [...] and direct typing Please excuse inadvertent manager distribution or typing errors, or uncorrected word substitutions Although every attempt has been made by the provider to proofread this document, occasional misspellings and typographical errors may still be present Due to the previous pandemic, and the use of personal protective equipment (PPE) This may decrease voice recognition accuracy Inadvertent manager distribution errors may occur 11/16/2024 BMI 28.0-28.9,adult (ICD-10 [...] and direct typing Please excuse inadvertent manager distribution or typing errors, or uncorrected word substitutions Although every attempt has been made by the provider to proofread this document, occasional misspellings and typographical errors may still be present Due to the previous pandemic, and the use of personal protective equipment (PPE) This may decrease voice recognition accuracy Inadvertent manager distribution errors may occur 07/26/2024 BMI 27.0-27.9,adult (ICD-10 [...] track activity level. Consider using apps like [employer], [employer], lose it, stick as needed for self-monitoring and weight management. Consider group exercises. Consider hiring a personal service representative. Regular exercise is kilgore to sustainable health [...] counseling and psychiatry and Dr Villeda at [employer]. We would like to cover regular topics [...] and direct typing Please excuse inadvertent manager distribution or typing errors, or uncorrected word substitutions Although every attempt has been made by the provider to proofread this document, occasional misspellings and typographical errors may still be present Due to the previous pandemic, and the use of personal protective equipment (PPE) This may decrease voice recognition accuracy Inadvertent manager distribution errors may occur 12/27/2024 BMI 29.0-29.9,adult (ICD-10 - Z68.29) #Weight Management 12/27/2024 Labs reviewed Discussed lipids and subclinical TSH Follow-up on TSH and total T4 Will start the patient on atorvastatin given her lipids and family history Discussed coronary calcium CT Will check on the status of Wejosselyn [...] and direct typing Please excuse inadvertent manager distribution or typing errors, or uncorrected word substitutions Although every attempt has been made by the provider to proofread this document, occasional misspellings and typographical errors may still be present Due to the previous pandemic, and the use of personal protective equipment (PPE) This may decrease voice recognition accuracy Inadvertent manager distribution errors may occur 12/29/2024 BMI 29.0-29.9,adult (ICD-10 [...] and direct typing Please excuse inadvertent manager distribution or typing errors, or uncorrected word substitutions Although every attempt has been made by the provider to proofread this document, occasional misspellings and typographical errors may still be present Due to the previous pandemic, and the use of personal protective equipment (PPE) This may decrease voice recognition accuracy Inadvertent manager distribution errors may occur 01/26/2025 BMI 29.0-29.9,adult (ICD-10 [...] and direct typing Please excuse inadvertent manager distribution or typing errors, or uncorrected word substitutions Although every attempt has been made by the provider to proofread this document, occasional misspellings and typographical errors may still be present Due to the previous pandemic, and the use of personal protective equipment (PPE) This may decrease voice recognition accuracy Inadvertent manager distribution errors may occur 04/26/2025 BMI 29.0-29.9,adult (ICD-10 - Z68.29) #Weight Management 04/26/2025 Activity somewhat limited due to pain and recent spinal surgery unfortunately She will continue 2.4 mg of Wegovy Chemically euthyroid Will update thyroid function and cholesterol for her next CPE in 6 weeks to assess statin efficacy Discussed coronary calcium CT, strongly recommend given family history. Patient will consider We stressed the importance of adequate protein [...] and direct typing Please excuse inadvertent manager distribution or typing errors, or uncorrected word substitutions Although every attempt has been made by the provider to proofread this document, occasional misspellings and typographical errors may still be present Due to the previous pandemic, and the use of personal protective equipment (PPE) This may decrease voice recognition accuracy Inadvertent manager distribution errors may occur 04/26/2025 Hyperlipidemia, unspecified hyperlipidemia type (ICD-10 - E78.5) 04/26/2025 Hypothyroidism, unspecified type (ICD-10 - E03.9) 04/26/2025 Overweight (BMI 25.0-29.9) (ICD-10 - E66.3) #Weight Management 04/26/2025 Activity somewhat limited due to pain and recent spinal surgery unfortunately She will continue 2.4 mg of Wegovy Chemically euthyroid Will update thyroid function and cholesterol for her next CPE in 6 weeks to assess statin efficacy Discussed coronary calcium CT, strongly recommend given family history. Patient will consider We stressed the importance of adequate protein [...] and direct typing Please excuse inadvertent manager distribution or typing errors, or uncorrected word substitutions Although every attempt has been made by the provider to proofread this document, occasional misspellings and typographical errors may still be present Due to the previous pandemic, and the use of personal protective equipment (PPE) This may decrease voice recognition accuracy Inadvertent manager distribution errors may occur 04/26/2025 Dietary counseling and surveillance (ICD-10 - Z71.3) #Weight Management 04/26/2025 Activity somewhat limited due to pain and recent spinal surgery unfortunately She will continue 2.4 mg of Wegovy Chemically euthyroid Will update thyroid function and cholesterol for her next CPE in 6 weeks to assess statin efficacy Discussed coronary calcium CT, strongly recommend given family history. Patient will consider We stressed the importance of adequate protein [...] and direct typing Please excuse inadvertent manager distribution or typing errors, or uncorrected word substitutions Although every attempt has been made by the provider to proofread this document, occasional misspellings and typographical errors may still be present Due to the previous pandemic, and the use of personal protective equipment (PPE) This may decrease voice recognition accuracy Inadvertent manager distribution errors may occur 01/26/2025 Overweight (BMI 25.0-29.9) [...] and direct typing Please excuse inadvertent manager distribution or typing errors, or uncorrected word substitutions Although every attempt has been made by the provider to proofread this document, occasional misspellings and typographical errors may still be present Due to the previous pandemic, and the use of personal protective equipment (PPE) This may decrease voice recognition accuracy Inadvertent manager distribution errors may occur 12/29/2024 Overweight (BMI 25.0-29.9) [...] and direct typing Please excuse inadvertent manager distribution or typing errors, or uncorrected word substitutions Although every attempt has been made by the provider to proofread this document, occasional misspellings and typographical errors may still be present Due to the previous pandemic, and the use of personal protective equipment (PPE) This may decrease voice recognition accuracy Inadvertent manager distribution errors may occur 01/26/2025 Dietary counseling and [...] and direct typing Please excuse inadvertent manager distribution or typing errors, or uncorrected word substitutions Although every attempt has been made by the provider to proofread this document, occasional misspellings and typographical errors may still be present Due to the previous pandemic, and the use of personal protective equipment (PPE) This may decrease voice recognition accuracy Inadvertent manager distribution errors may occur 12/29/2024 Dietary counseling and [...] and direct typing Please excuse inadvertent manager distribution or typing errors, or uncorrected word substitutions Although every attempt has been made by the provider to proofread this document, occasional misspellings and typographical errors may still be present Due to the previous pandemic, and the use of personal protective equipment (PPE) This may decrease voice recognition accuracy Inadvertent manager distribution errors may occur 12/27/2024 Overweight (BMI 25.0-29.9) [...] and direct typing Please excuse inadvertent manager distribution or typing errors, or uncorrected word substitutions Although every attempt has been made by the provider to proofread this document, occasional misspellings and typographical errors may still be present Due to the previous pandemic, and the use of personal protective equipment (PPE) This may decrease voice recognition accuracy Inadvertent manager distribution errors may occur 07/26/2024 Overweight (BMI 25.0-29.9) [...] track activity level. Consider using apps like [employer], [employer], lose it, stick as needed for self-monitoring and weight management. Consider group exercises. Consider hiring a personal service representative. Regular exercise is kilgore to sustainable health [...] counseling and psychiatry and Dr Villeda at [employer]. We would like to cover regular topics [...] and direct typing Please excuse inadvertent manager distribution or typing errors, or uncorrected word substitutions Although every attempt has been made by the provider to proofread this document, occasional misspellings and typographical errors may still be present Due to the previous pandemic, and the use of personal protective equipment (PPE) This may decrease voice recognition accuracy Inadvertent manager distribution errors may occur 09/27/2024 Dietary counseling and [...] and direct typing Please excuse inadvertent manager distribution or typing errors, or uncorrected word substitutions Although every attempt has been made by the provider to proofread this document, occasional misspellings and typographical errors may still be present Due to the previous pandemic, and the use of personal protective equipment (PPE) This may decrease voice recognition accuracy Inadvertent manager distribution errors may occur 11/16/2024 Overweight (BMI 25.0-29.9) [...] and direct typing Please excuse inadvertent manager distribution or typing errors, or uncorrected word substitutions Although every attempt has been made by the provider to proofread this document, occasional misspellings and typographical errors may still be present Due to the previous pandemic, and the use of personal protective equipment (PPE) This may decrease voice recognition accuracy Inadvertent manager distribution errors may occur 12/27/2024 Dietary counseling and surveillance (ICD-10 - Z71.3) #Weight Management 12/27/2024 Labs reviewed Discussed lipids and subclinical TSH Follow-up on TSH and total T4 Will start the patient on atorvastatin given her lipids and family history Discussed coronary calcium CT Will check on the status of Wegocj I have given him 0.25 samples in [...] and direct typing Please excuse inadvertent manager distribution or typing errors, or uncorrected word substitutions Although every attempt has been made by the provider to proofread this document, occasional misspellings and typographical errors may still be present Due to the previous pandemic, and the use of personal protective equipment (PPE) This may decrease voice recognition accuracy Inadvertent manager distribution errors may occur 09/27/2024 Overweight (BMI 25.0-29.9) [...] and direct typing Please excuse inadvertent manager distribution or typing errors, or uncorrected word substitutions Although every attempt has been made by the provider to proofread this document, occasional misspellings and typographical errors may still be present Due to the previous pandemic, and the use of personal protective equipment (PPE) This may decrease voice recognition accuracy Inadvertent manager distribution errors may occur 11/16/2024 Dietary counseling and [...] and direct typing Please excuse inadvertent manager distribution or typing errors, or uncorrected word substitutions Although every attempt has been made by the provider to proofread this document, occasional misspellings and typographical errors may still be present Due to the previous pandemic, and the use of personal protective equipment (PPE) This may decrease voice recognition accuracy Inadvertent manager distribution errors may occur 06/01/2024 Dietary counseling and [...] track activity level. Consider using apps like [employer], [employer], lose it, stick as needed for self-monitoring and weight management. Consider group exercises. Consider hiring a personal service representative. Regular exercise is kilgore to sustainable health [...] counseling and psychiatry and Dr Villeda at [employer]. We would like to cover regular topics [...] and direct typing Please excuse inadvertent manager distribution or typing errors, or uncorrected word substitutions Although every attempt has been made by the provider to proofread this document, occasional misspellings and typographical errors may still be present Due to the previous pandemic, and the use of personal protective equipment (PPE) This may decrease voice recognition accuracy Inadvertent manager distribution errors may occur 07/26/2024 Dietary counseling and [...] track activity level. Consider using apps like [employer], [employer], lose it, stick as needed for self-monitoring and weight management. Consider group exercises. Consider hiring a personal service representative. Regular exercise is [place] to sustainable health [...] counseling and psychiatry and Dr Villeda at [facility]. We would like to cover regular topics [...] and direct typing Please excuse inadvertent manager distribution or typing errors, or uncorrected word substitutions Although every attempt has been made by the provider to proofread this document, occasional misspellings and typographical errors may still be present Due to the previous pandemic, and the use of personal protective equipment (PPE) This may decrease voice recognition accuracy Inadvertent manager distribution errors may occur 11/16/2024 Hypothyroidism, unspecified type [...] and direct typing Please excuse inadvertent manager distribution or typing errors, or uncorrected word substitutions Although every attempt has been made by the provider to proofread this document, occasional misspellings and typographical errors may still be present Due to the previous pandemic, and the use of personal protective equipment (PPE) This may decrease voice recognition accuracy Inadvertent manager distribution errors may occur 12/27/2024 Hypothyroidism, unspecified type [...] and direct typing Please excuse inadvertent manager distribution or typing errors, or uncorrected word substitutions Although every attempt has been made by the provider to proofread this document, occasional misspellings and typographical errors may still be present Due to the previous pandemic, and the use of personal protective equipment (PPE) This may decrease voice recognition accuracy Inadvertent manager distribution errors may occur 12/29/2024 Hypothyroidism, unspecified type [...] and direct typing Please excuse inadvertent manager distribution or typing errors, or uncorrected word substitutions Although every attempt has been made by the provider to proofread this document, occasional misspellings and typographical errors may still be present Due to the previous pandemic, and the use of personal protective equipment (PPE) This may decrease voice recognition accuracy Inadvertent manager distribution errors may occur 01/26/2025 Hypothyroidism, unspecified type [...] and direct typing Please excuse inadvertent manager distribution or typing errors, or uncorrected word substitutions Although every attempt has been made by the provider to proofread this document, occasional misspellings and typographical errors may still be present Due to the previous pandemic, and the use of personal protective equipment (PPE) This may decrease voice recognition accuracy Inadvertent manager distribution errors may occur 04/26/2025 Hypothyroidism, unspecified type (ICD-10 - E03.9) #Weight Management 04/26/2025 Activity somewhat limited due to pain and recent spinal surgery unfortunately She will continue 2.4 mg of Wegovy Chemically euthyroid Will update thyroid function and cholesterol for her next CPE in 6 weeks to assess statin efficacy Discussed coronary calcium CT, strongly recommend given family history. Patient will consider We stressed the importance of adequate protein [...] and direct typing Please excuse inadvertent manager distribution or typing errors, or uncorrected word substitutions Although every attempt has been made by the provider to proofread this document, occasional misspellings and typographical errors may still be present Due to the previous pandemic, and the use of personal protective equipment (PPE) This may decrease voice recognition accuracy Inadvertent manager distribution errors may occur 04/26/2025 Dyslipidemia (ICD-10 - E78.5) #Weight Management 04/26/2025 Activity somewhat limited due to pain and recent spinal surgery unfortunately She will continue 2.4 mg of Wegovy Chemically euthyroid Will update thyroid function and cholesterol for her next CPE in 6 weeks to assess statin efficacy Discussed coronary calcium CT, strongly recommend given family history. Patient will consider We stressed the importance of adequate protein [...] and direct typing Please excuse inadvertent manager distribution or typing errors, or uncorrected word substitutions Although every attempt has been made by the provider to proofread this document, occasional misspellings and typographical errors may still be present Due to the previous pandemic, and the use of personal protective equipment (PPE) This may decrease voice recognition accuracy Inadvertent manager distribution errors may occur 01/26/2025 Dyslipidemia (ICD-10 - [...] and direct typing Please excuse inadvertent manager distribution or typing errors, or uncorrected word substitutions Although every attempt has been made by the provider to proofread this document, occasional misspellings and typographical errors may still be present Due to the previous pandemic, and the use of personal protective equipment (PPE) This may decrease voice recognition accuracy Inadvertent manager distribution errors may occur 12/29/2024 Dyslipidemia (ICD-10 - [...] and direct typing Please excuse inadvertent manager distribution or typing errors, or uncorrected word substitutions Although every attempt has been made by the provider to proofread this document, occasional misspellings and typographical errors may still be present Due to the previous pandemic, and the use of personal protective equipment (PPE) This may decrease voice recognition accuracy Inadvertent manager distribution errors may occur 12/27/2024 Dyslipidemia (ICD-10 - [...] and direct typing Please excuse inadvertent manager distribution or typing errors, or uncorrected word substitutions Although every attempt has been made by the provider to proofread this document, occasional misspellings and typographical errors may still be present Due to the previous pandemic, and the use of personal protective equipment (PPE) This may decrease voice recognition accuracy Inadvertent manager distribution errors may occur 11/16/2024 Dyslipidemia (ICD-10 - [...] and direct typing Please excuse inadvertent manager distribution or typing errors, or uncorrected word substitutions Although every attempt has been made by the provider to proofread this document, occasional misspellings and typographical errors may still be present Due to the previous pandemic, and the use of personal protective equipment (PPE) This may decrease voice recognition accuracy Inadvertent manager distribution errors may occur 12/29/2024 Levoscoliosis of lumbar [...] and direct typing Please excuse inadvertent manager distribution or typing errors, or uncorrected word substitutions Although every attempt has been made by the provider to proofread this document, occasional misspellings and typographical errors may still be present Due to the previous pandemic, and the use of personal protective equipment (PPE) This may decrease voice recognition accuracy Inadvertent manager distribution errors may occur 01/26/2025 Levoscoliosis of lumbar [...] and direct typing Please excuse inadvertent manager distribution or typing errors, or uncorrected word substitutions Although every attempt has been made by the provider to proofread this document, occasional misspellings and typographical errors may still be present Due to the previous pandemic, and the use of personal protective equipment (PPE) This may decrease voice recognition accuracy Inadvertent manager distribution errors may occur 04/26/2025 Levoscoliosis of lumbar spine (ICD-10 - M41.86) #Weight Management 04/26/2025 Activity somewhat limited due to pain and recent spinal surgery unfortunately She will continue 2.4 mg of Wegovy Chemically euthyroid Will update thyroid function and cholesterol for her next CPE in 6 weeks to assess statin efficacy Discussed coronary calcium CT, strongly recommend given family history. Patient will consider We stressed the importance of adequate protein [...] and direct typing Please excuse inadvertent manager distribution or typing errors, or uncorrected word substitutions Although every attempt has been made by the provider to proofread this document, occasional misspellings and typographical errors may still be present Due to the previous pandemic, and the use of personal protective equipment (PPE) This may decrease voice recognition accuracy Inadvertent manager distribution errors may occur 04/26/2025 Post-menopausal (ICD-10 - Z78.0) #Weight Management 04/26/2025 Activity somewhat limited due to pain and recent spinal surgery unfortunately She will continue 2.4 mg of Wegovy Chemically euthyroid Will update thyroid function and cholesterol for her next CPE in 6 weeks to assess statin efficacy Discussed coronary calcium CT, strongly recommend given family history. Patient will consider We stressed the importance of adequate protein [...] and direct typing Please excuse inadvertent manager distribution or typing errors, or uncorrected word substitutions Although every attempt has been made by the provider to proofread this document, occasional misspellings and typographical errors may still be present Due to the previous pandemic, and the use of personal protective equipment (PPE) This may decrease voice recognition accuracy Inadvertent manager distribution errors may occur 01/26/2025 Post-menopausal (ICD-10 - [...] and direct typing Please excuse inadvertent manager distribution or typing errors, or uncorrected word substitutions Although every attempt has been made by the provider to proofread this document, occasional misspellings and typographical errors may still be present Due to the previous pandemic, and the use of personal protective equipment (PPE) This may decrease voice recognition accuracy Inadvertent manager distribution errors may occur 12/29/2024 Post-menopausal (ICD-10 - [...] and direct typing Please excuse inadvertent manager distribution or typing errors, or uncorrected word substitutions Although every attempt has been made by the provider to proofread this document, occasional misspellings and typographical errors may still be present Due to the previous pandemic, and the use of personal protective equipment (PPE) This may decrease voice recognition accuracy Inadvertent manager distribution errors may occur 04/26/2025 Encounter for examination of blood pressure without abnormal findings (ICD-10 - Z01.30) #Weight Management 04/26/2025 Activity somewhat limited due to pain and recent spinal surgery unfortunately She will continue 2.4 mg of Wegovy Chemically euthyroid Will update thyroid function and cholesterol for her next CPE in 6 weeks to assess statin efficacy Discussed coronary calcium CT, strongly recommend given family history. Patient will consider We stressed the importance of adequate protein [...] and direct typing Please excuse inadvertent manager distribution or typing errors, or uncorrected word substitutions Although every attempt has been made by the provider to proofread this document, occasional misspellings and typographical errors may still be present Due to the previous pandemic, and the use of personal protective equipment (PPE) This may decrease voice recognition accuracy Inadvertent manager distribution errors may occur 12/29/2024 Encounter for screening [...] and direct typing Please excuse inadvertent manager distribution or typing errors, or uncorrected word substitutions Although every attempt has been made by the provider to proofread this document, occasional misspellings and typographical errors may still be present Due to the previous pandemic, and the use of personal protective equipment (PPE) This may decrease voice recognition accuracy Inadvertent manager distribution errors may occur 03/14/2025 #Weight Management 03/14/2025 Labs reviewed Chemically euthyroid Continue statin, update lipid panel prior to next visit Discussed coronary calcium CT, strongly recommend given family history. Patient will consider following surgery. Continue Wegovy 2.4 Discussed protein and muscle and's strength and [...] and direct typing Please excuse inadvertent manager distribution or typing errors, or uncorrected word substitutions Although every attempt has been made by the provider to proofread this document, occasional misspellings and typographical errors may still be present Due to the previous pandemic, and the use of personal protective equipment (PPE) This may decrease voice recognition accuracy Inadvertent manager distribution errors may occur Plan Of Treatment Pending Test Test Name Order Date Bone Density 12/29/2024 LIPID PANEL, STANDARD 01/26/2025 LIPID PANEL, STANDARD 04/26/2025 LIPID PANEL, STANDARD 09/27/2024 LIPID PANEL, STANDARD 11/16/2024 COMPREHENSIVE METABOLIC PANEL 09/27/2024 CBC (INCLUDES DIFF/PLT) 09/27/2024 URINALYSIS, COMPLETE 09/27/2024 HEMOGLOBIN A1c 09/27/2024 T4 (THYROXINE), TOTAL 11/16/2024 TSH 11/16/2024 TSH 09/27/2024 TSH 04/26/2025 VITAMIN D,25-OH,TOTAL,IA 09/27/2024 TSH+FREE T4 04/26/2025 Next Appt Details Provider Name:ZARIA NILESH, 06/08/2025 08:45:00 AM, [address] [place] [address] [address], [place], [id number], Insurance Providers Payer Name Payer Address Payer Phone Subscriber Number Group Number Insured Name Patient Relationship to Insured Coverage Start Date Coverage End Date [employer] [address] [address] [place] [address] [id number] [phone] HEATHER STOVALL Self - patient is the insured Medications Administered Medication Instructions Date of Administration Dosage Notes MICC B12 INJECTION 09/05/2023 1 mL Medical (General) History Medical History History ICD Code headache gallbladder disease Surgical History Surgery Date(Month/Year) gastric sleeve gallbladder removal lumbar fusion
== END 2025-05-30 10:22 | disposition home or self-care (01) ==
LOC: HO.HNS 09:52
PROVIDERS: Visit Provider Physician Assistant
DX: Z98.1 Arthrodesis status (principal)
CPT/HCPCS: 99212